=== PATIENT | female | born 1940 | race Caucasian/White ===

== ENCOUNTER 2024-01-06 08:39 | Inpatient (IN) | payer OTHER, SELFPAY ==
[2024-01-04 15:29] VITALS: BP 142/74
[2024-01-04 15:33] VITALS: BP 147/65
[2024-01-04 17:01] VITALS: BP 160/80
[2024-01-04] MEDS: DILAUDID 0.5 MG IV (17:52)
[2024-01-04] MEDS: PERCOCET 5/325 1 TABLET PO (18:29)
--- NOTE | 2024-01-04 20:13 | ED.GENMED ---
History of Present Illness
General
Chief Complaint: Fall
Source: patient and family
Exam Limitations: none
Time Seen by Provider: 01/04/24 18:00
Travel History
Have you had any contact with someone who has COVID-19?: No
Do you have any symptoms of coronavirus? Fever > 100 degrees, chills, cough, shortness of breath, sore throat, loss of taste or smell, muscle aches, or headache?: No
History of Present Illness
History of Present Illness:
83 y/o F with h/o copd, pulm fibrosis
h/o remote R TKR
knee swelling after fall today mechanical when she was using her walker and tripped
she landed onto her knee
unable to get up
no head strike
unable to weight bear
no hip pain, abdominal pain, headache, neck pain, back pain, thinners
swelling presnt to nknee
got toradol via EMS.
Past History
Past History
ED Past Medical History: Cancer (Cutaneious T cell Lymphoma), GERD, Hypercholesterolemia, Psychiatric (Depression) and Other (BOOP, Emphysema, Pulmonary nodules Rib Fratures, UTI,)
ED Past Surgical History: Appendectomy, Cholecystectomy, Gynecological (Hysterectomy), Orthopedic (Bilateral total knee replaced) and Tonsilectomy
Social History
Tobacco: Former smoker (Quit 40 years ago)
Alcohol: Occasional
Drug: None
Personal:
Living: with family
Employment: Retired
Family History
Family History: Other (son w/ brain aneurysm. sister w/ ?afib and no fam hx of throacic/abd aneursym or cad. son with fatal IA)
Review of Systems
Review of Systems
Allergies reviewed?: Yes
All Other Systems: Not applicable
Phy Exam
Physical Exam
Physical Exam:
GENERAL: Alert , in no apparent distress
HEAD: NCAT
NECK: no midline tenderness, active ROM intact, no paraspinal muscle tenderness;
EYE: pupils equal and reactive, EOMs intact.
ENT: o/p clr, mmm. no hemotympanum
CARDIAC: Regular rate and rhythm, no edema
LUNGS: diminshed no resp distress
NEUROLOGICAL: Alert and oriented, no focal neuro deficits, CN intact, 5/5 strength, sensation intact
SKIN: Warm and dry, ecchyomssi right anterior knee
MUSCULOSKELETAL: moderate swelling of the R knee
effusion
very tender and limited poainful ROM of the knee
hip does not seem tender but unable to adeuqately range due to bad knee pain
no distal leg tenderness;
PSYCH: Normal and appropriate interaction.
Course
Orders/Labs/Results
Orders:
Orders
01/04/24 15:29
Knee, Right 4 or More Views [CR Knee- Right 4 Or More View*] Urgent
Comment:
Reason For Exam: fall
01/04/24 15:34
Hip, Right 2-3 Views [CR Hip - RT w/wo Pel 2-3 Vw*] Urgent
Comment:
Reason For Exam: fall
Include a pelvis x-ray?: Yes
01/04/24 17:50
HYDROmorphone [Dilaudid] 0.5 mg IV NOW STA
01/04/24 17:51
HYDROmorphone [Dilaudid] 0.5 mg .ROUTE .STK-MED ONE
01/04/24 18:20
Oxycodone/Acetaminophen [Percocet 5/325] 1 tablet PO NOW STA
01/04/24 18:38
CT Lower Ext W/o Iv Cont Rt Urgent
Comment:
Reason For Exam: fall onto knee, unable to move/walk
01/04/24 21:35
Admit/Transfer Patient As Directed
Co-Sign Provider:
Level of Care: Observation services
Assign to:: Medical/Surgical
Physician / Group: Adrian
Diagnosis: Periprosthetic Fracture
01/04/24 21:41
Code Status As Directed
Resuscitation Status: Do not resuscitate
Reached after discussion with pt or family/Healthcare POA: Yes
DNR Bracelet Application ONCE
01/04/24 22:02
BMP [Basic Metabolic Panel] Urgent
01/04/24 22:03
CBC/No Diff [Complete Blood Count/No Diff] Urgent
01/04/24 22:42
Acetaminophen [Tylenol] 1,000 mg PO TID
HYDROmorphone [Dilaudid] 0.25 mg IV Q3HPRN PRN
Latanoprost [Xalatan Ophthalmic Solution] 1 drop BOTH EYES HS
Oxycodone [Roxicodone] 5 mg PO Q4HPRN PRN
01/04/24 22:42
ORTHOPEDIC CONSULT Routine
Consulting Provider: Loni Morrison
Was physician already notified: Yes
Activity As Directed
Activity Level: Out of Bed-Early Mobility
Bladder Scan As Directed
Follow Bladder Retention/Intermittent Cath Algorithm?: Yes
PRN if no void in __ hours: 6
Frequency: Per Retention Algorithm
If Bladder Scan Result >: 400
then:: Straight cath
Immobilizer [Braces/Immobilizers] As Directed
Type of Brace/Immobilizer: Knee immobilizer
Location for Brace/Immobilizer: right lower ext
Pneumatic Compression Sleeves As Directed
Type: Knee high
Straight Cath As Directed
Frequency: Per Retention Algorithm
Additional Instructions: straight cath as needed per acute urinary retention algorithm for 24 hrs
Additional Instructions: for bladder scan greater than 400 mL
Vital Signs As Directed
Frequency: Per unit guidelines
Weight Bearing Status As Directed
Weight bearing to: Right lower extremity
Type: Non Wt. bearing
Ot Eval And Treat Routine
Pt Eval And Treat Routine
Activity Level: Out of Bed-Early Mobility
With Assistance
DX Deep Vein Thrombosis Video Routine
01/05/24 08:00
Atorvastatin [Lipitor] 10 mg PO DAILY
Sertraline HCl [Zoloft] 100 mg PO DAILY
01/05/24 18:00
Enoxaparin Sodium [Lovenox] 40 mg SC QPM
Abnormal Lab Results
01/04/24 01/04/24
22:02 22:03
RBC 3.62 L 10^6/uL
(4.20-5.40)
Hgb 11.2 L g/dL
(12.0-16.0)
Hct 32.9 L %
(37.0-47.0)
MPV 10.8 H fL
(7.4-10.4)
Sodium 133 L mmol/L
(135-145)
Chloride 108 H mmol/L
(98-107)
BUN 19 H mg/dl
(7-17)
Calcium 8.0 L mg/dl
(8.4-10.2)
01/04/24 22:03
01/04/24 22:02
Vital Signs
Initial and Last Documented VS:
Initial Vital Signs
Temp Pulse Resp BP Pulse Ox
98.2 F 78 16 142/74 98
01/04/24 15:29 01/04/24 15:29 01/04/24 15:29 01/04/24 15:29 01/04/24 15:29
Last Documented Vital Signs
Temp Pulse Resp BP Pulse Ox
98.8 F 75 20 163/90 93
01/04/24 22:45 01/04/24 22:45 01/04/24 22:45 01/04/24 22:45 01/04/24 23:52
MDM/Problems Addressed
Differential Diagnosis Includes:
knee fracture, periprosthetic fx hardware malfucntion
MDM/Problems Addressed:
83 y/o F with mechanical fall onto knee, h/o remote replacement > 20 years ago [facility]
unaable to weight bear or flex the knee
no other injureis
xrays d/w radiologist indep reviewed
possiblilty of right lateral fem condyle fx but hardware appears intact
given degree of pain not relievd with dilaudid and oral percocet --> ct
ct showed lateral and medial fem condyle fx
d/w dr morrison from [facility] ortho, pt has been seen there fo rwrist before
he reviewed imaginges
likely Nonop
NWB, pain control, brace
pt will be admitte,d unable to control pain
*Critical Care Note
Total Time (30-74mins, 75-104mins- exclusive of procedures): Not Applicable
ED Attending Note
-
Portions of this chart may have been created with voice recognition software.� Occasional wrong word or��sound alike� substitutions may have occurred due to the inherent limitations of voice recognition software.
Discharge Plan
Departure
Patient Disposition: Admit
Date of Disposition: 01/04/24
Time of Disposition: 20:10
Admit to: Med/Surg
Presentation/result/management discussed w/ accepting MD/DO: Hospitalist
Condition: Fair
Covid-19: Not Applicable
Discharge Problem:
Closed fracture of femoral condyle
Interventions
Interventions:
*Risk Screen - Suicide Last Done: 01/04/24 15:30
*General Assessment Last Done: 01/04/24 15:30
*Neglect/Abuse Screening Last Done: 01/04/24 15:30
ED- Fall Risk Assessment Last Done: 01/04/24 15:30
*ED COVID-19 Vaccine History Last Done: 01/04/24 22:26
*Nursing Disposition Last Done: 01/04/24 22:26
ED-Musculoskeletal Assessment Last Done: 03/08/24 15:30
ED- Neurological Assessment Last Done: 01/04/24 15:30
ED-Skin Assessment Last Done: 01/04/24 15:30
Discharge Date and Time
Discharge Date/Time: 01/04/24 22:31
[2024-01-04 20:37] VITALS: BMI 32.9
--- NOTE | 2024-01-04 21:45 | HPS.HSE ---
Addendum entered and electronically signed by Malcom Campbell DO 01/04/24 22:09:
Patient seen and examined independently. Agree with findings and plan as set forth by Kaleigh Larson PA-C.
Patient is an 83y F with PMH significant for cutaneous T cell lymphoma, BOOP / ILD who presents to ED for evaluation s/p [id number]. Patient was walking with her walker when she tripped on the device and fell forward, landing on her R knee.
Patient has prior history of R TKA about 3 years ago. She denies any head injury, LOC, etc during the fall. She denies any prodrome of lightheadedness, dizziness, chest pain or dyspnea prior to the fall.
In the ED, patient is found to have R knee periprosthetic fracture.
Ass:
Right Medial and Lateral Femoral Condyle Krysta-Prosthetic Fractures
Fall at Home
s/p R TKA (3 years ago)
ILD / BOOP / COPD
Anxiety / Depression
Elevated BP
Plan:
Observe overnight for further evaluation and treatment.
Pain control, immobilization and elevation of the RLE.
NWB on the RLE.
Orthopedics evaluation.
PT / OT evaluations (patient ambulates with cane or walker at baseline).
Continue usual outpatient medications.
Monitor for improvement in BP with adequate pain control.
Original Note:
Family Physician
-
Family Physician: Tk Chang
Chief Complaint
-
Fall with Right Knee Pain
History of Present Illness
Patient is an 83 y/o female with PMH of cutaneous T cell Lymphoma, hypercholesterolemia, bronchiolitis obliterans organizing pneumonia, and interstitial lung disease who presents to ED after a fall. Patient says she was walking with her walker when
one of the walker legs caught on something caused her to fall hard onto her right knee. She denies hitting her head during the fall. Patient says she was unable to move due to severe pain. Her family was home and called an ambulance. Work-up in the
emergency department reveal right periprosthetic distal femur fracture.
Medical History
Past Medical History
Past Medical History: Reports Other
Additional Past Medical History:
Emphysema
Interstitial pulmonary fibrosis
Hyperlipidemia
Depression
Recurrent UTIs
Hx BOOP
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
Hx Basal Cell Carcinoma
Past Surgical History: Reports Other
Additional Past Surgical History:
Appendectomy
Tonsillectomy
Cholecystectomy
Hysterectomy
Bilateral total knee replacement
Mohs procedure
Social History
Tobacco: Non-smoker
Alcohol: Occasional
Drug: None
Personal:
Living: With Family
Family History
Family History: Not pertinent
Allergies / Home Medications
Allergies reflects when Allergies were last updated in [facility].
Home Medications with original date entered in [facility]
Allergy/Medication List:
Allergies
Allergy/AdvReac Type Severity Reaction Status Date / Time
morphine [Morphine] Allergy hypotension Verified 01/04/24 15:29
Home Medications
atorvastatin 10 mg tablet 10 mg PO DAILY High cholesterol 05/31/22
latanoprost 0.005 % eye drops 1 drp BOTH EYES HS 01/04/24
sertraline 100 mg tablet 100 mg PO DAILY 01/04/24
Review of Systems
-
A 12 point ROS was completed and negative except as noted: Yes
Constitutional: Denies Fever or Chills
Respiratory: Denies Cough or Trouble Breathing
Cardiac: Denies Chest Pain or Palpitations
Physical Exam
Vital Signs
Vital Signs
Temp Pulse Resp BP Pulse Ox
98.0 F 64 17 160/80 97
01/04/24 15:33 01/04/24 16:59 01/04/24 16:59 01/04/24 17:01 01/04/24 16:59
Physical Exam
General: No Apparent Distress, Comfortable and Conversant
HEENT: Anicteric and Moist mucous membranes
Respiratory: Clear and Non Labored Respirations
Cardiac: S1/S2 and Regular Rhythm
GI: Soft, Non Tender and Non Distended
Rectal: Deferred by Provider
Musculoskeletal: No Clubbing and No Cyanosis
Skin: Warm and Dry
Neuro: Awake, Alert, Oriented and Nonfocal/grossly intact
Data Reviewed
-
Lab Data: Labs Reviewed by me
Impression/Plan
-
Periprosthetic Fracture of Right Medial and Lateral Femoral Condyle
-Non-Operative management per Orthopedics
-Continue Non-Weight Bearing
-Continue Knee Immobilization
-Continue Tylenol 1000mg TID
-Continue Oxycodone/Dilaudid for moderate/severe pain
Interstitial Lung Disease/COPD
-Patient does not use any inhalers as outpatient
-Prior notes indicate patient uses oxygen as needed
Hyperlipidemia
-Continue atorvastatin
Depression
-Continue sertraline
DVT proph: Lovenox
Code Status: DNR
[2024-01-04 22:08] LABS: Hematocrit 32.9 % (37.0-47.0); Hemoglobin 11.2 g/dL (12.0-16.0); Mean Corpuscular Hgb 30.9 pg (27.0-31.0); Mean Corpuscular Volume 90.9 fL (81.0-99.0); Mean Platelet Volume 10.8 fL (7.4-10.4); Platelet Count 184 10^3/uL (130-400); Red Blood Cell Count 3.62 10^6/uL (4.20-5.40); Red Cell Dist. Width 14.5 % (11.5-14.5); White Blood Cell Count 9.5 10^3/uL (4.8-10.8)
[2024-01-04 22:22] LABS: Blood Urea Nitrogen 19 mg/dl (7-17); Carbon Dioxide 25 mmol/L (22-30); Chloride 108 mmol/L (98-107); Estimated Creatinine Clearance 66 ml/min; Glucose 99 mg/dl (70-99); Potassium 4.1 mmol/L (3.5-5.1); Sodium 133 mmol/L (135-145); eGFR > 60.00
[2024-01-04 22:45] VITALS: BP 163/90; BMI 30.3
[2024-01-04] MEDS: TYLENOL 1000 MG PO (23:09)
[2024-01-04] MEDS: XALATAN OPHTHALMIC SOLUTION 1 DROP BOTH EYES (23:30)
--- NOTE | 2024-01-04 23:30 | PTCARENOTE ---
Pt arrived to floor via stretcher from the ED. Pt AAOx3, [place]. Daughter at bedside. Pt reports right knee pain 8/10, Tylenol administered as ordered. Pt unable to tolerate Knee high seq on right leg due to pain, removed per request, remains on left
leg. Pt inc of urine, dulce maria care provided, new brief now in place. +2 edema noted to Rt LE, limited movement due to pain. Awaiting leg immobilizer from nursing heat treat supervisor. Pt positioned per comfort. Right AC int capped. Daughter updated on plan of
care. Pt now resting. Will continue to monitor.
[2024-01-05] MEDS: ROXICODONE 5 MG PO ×3 (06:33→17:15)
[2024-01-05 07:49] VITALS: BP 136/67
--- NOTE | 2024-01-05 08:38 | W.PN.UPDATE ---
Update Note
Progress Note Update
Patient seen on AM rounds. Full consult note to follow.
Periprosthetic right distal femur fracture
--Will plan to proceed with non-operative management.
--NWB to RLE. Knee immobilizer.
--Recommend ASA 325 mg for DVT prophylaxis as patient will have limited mobility while fracture is healing.
[2024-01-05] MEDS: ZOLOFT 100 MG PO (09:02)
[2024-01-05] MEDS: TYLENOL 1000 MG PO ×3 (09:02→22:04)
[2024-01-05] MEDS: LIPITOR 10 MG PO (09:03)
--- NOTE | 2024-01-05 09:21 | W.PN.HOSP.TC ---
Today's Communication/Plan
-
see bold
Assessment / Plan
Assessment / Plan
Gen: NAD, Awake and alert
Eyes: EOMI, PERRLA, no scleral icterus.
Neck: supple.
CV: RRR, +S1/S2, no m/r/g.
Resp: CTAB, no rales, wheezes, or rhonchi.
Skin: No rashes.
Neuro: CN 2-12 intact, non-focal.
Psych: Normal mood and affect.
Periprosthetic Fracture of Right Medial and Lateral Femoral Condyle
-Non-Operative management per Orthopedics
-Continue Non-Weight Bearing RLE, knee immobilizer
-Continue Tylenol 1000mg TID
-Continue Oxycodone/Dilaudid for moderate/severe pain
Interstitial Lung Disease/COPD
-Patient does not use any inhalers as outpatient
-Prior notes indicate patient uses oxygen as needed
Hyperlipidemia
-Continue atorvastatin
Depression
-Continue sertraline
Pt's daughter updated at bedside.
DNR/Lovenox
Medically cleared for d/c, case management aware.
Anticipated Discharge: Today
Subjective/Interval History
-
Date of Service: January 05, 2024
Denies CP/SOB.
Objective Data
-
Labs:
Laboratory Results
01/04/24 01/04/24
22:02 22:03
WBC 9.5
Hgb 11.2 L
Hct 32.9 L
Plt Count 184
Sodium 133 L
Potassium 4.1
Chloride 108 H
Carbon Dioxide 25
BUN 19 H
Creatinine 0.6
Glucose 99
Calcium 8.0 L
Vital Signs:
Vital Signs
Temp Pulse Resp BP Pulse Ox
97.6 F 68 17 136/67 91
01/05/24 07:49 01/05/24 07:49 01/05/24 07:49 01/05/24 07:49 01/05/24 07:49
I&O
01/04/24 01/05/24 01/06/24
06:59 06:59 07:59
Intake Total 480 / 480
Balance 480 / 480
--- NOTE | 2024-01-05 09:46 | CM ---
Addendum entered by Tahir Camarillo 01/05/24 12:45:
PT and OT evaluations noted - SNF level of care recommended. Both pt and her daughter Eva Baker are aware and following SNFs requested:
1. [facility]
2. [facility]
3. [facility]
4. [facility]
5. [facility]
6. [facility]
7. [facility]
A referral to above SNFs made. Awaiting for determination.
D/C plan: Preferred SNF. pt will need an auth for SNF level of care at a preferred SN.
CM will follow to assist pt with discharge to a preferred SNF.
Original Note:
CM following re: discharge planning.
Reviewed pt's chart, met with pt and pt's daughter at bedside.
Pt is an 83 year old female, admitted with OBS status and primary concerns of Periprosthetic Fracture of Right Medial and Lateral Femoral Condyle.
Pt reports she lives with in an apartment/condo, no steps to enter, has 4 supportive living children, 2 children . Emotional support offered and provided. Pt reports she has been experienced difficulties with walking in the past
week, usually ambulates with a walker and a cane and has balance issues. Pt reports she has had [facility] in the past. No SNF history. Pt stated she cannot walk right now at all because of pain.
According to MD pt is medically stable top be discharged. PT and OT evaluations requested to determine a level of acre at discharge.
PCP: Tk Alex
Pharmacy: [facility]
D/C plan: Awaiting for PT/OT evaluations and recommendations. Most likely home PT vs SNF
CM will follow with discharge plan updates as hospitalization progresses
[2024-01-05 10:03] VITALS: BP 130/58; PULSE 57; O2SAT 90
[2024-01-05 13:00] VITALS: BP 123/77; BP 130/66; PULSE 60; O2SAT 93
--- NOTE | 2024-01-05 13:10 | CON.ORTHO ---
Consultation
-
Date/Time Consultation Requested: 01/04/2024; time unknown
Date/Time Consultation Performed: 01/05/2024; 0800
Requesting Provider: unknown
Performing Provider: Nany Whitehead PA-C for Dr. Loni Morrison
Reason for Consultation: Right periprosthetic distal femur fracture
Consultation - Orthopedics
History
Ms. Suarez is an 83 yo F with PMH of cutaneous T cell Lymphoma, hypercholesterolemia, bronchiolitis obliterans organizing pneumonia, and interstitial lung disease. She reports she was walking at home when her walker leg got caught causing her to fall
onto her right knee. She experienced immediate onset of pain and was unable to get up off the floor. She presented to ED via EMS where x-rays and CT scan reveals a periprosthetic distal femur fracture. She is resting comfortably in bed this
morning. She reports aching pain about the right knee. She denies pain elsewhere.
She reports she lives at home with family and ambulates with the assistance of a walker at baseline. Her knee replacement was performed at [facility] 20 years ago.
Allergies / Home Medications
Allergy/AdvReac Type Severity Reaction Status Date / Time
morphine [Morphine] Allergy hypotension Verified 01/04/24 15:29
Medication Instructions Recorded
atorvastatin 10 mg tablet 10 mg PO DAILY High cholesterol 05/31/22
latanoprost 0.005 % eye drops 1 drp BOTH EYES HS 01/04/24
sertraline 100 mg tablet 100 mg PO DAILY 01/04/24
Vital Signs / Lab Results
Temp Pulse Resp BP Pulse Ox
97.6 F 68 17 136/67 91
01/05/24 07:49 01/05/24 07:49 01/05/24 07:49 01/05/24 07:49 01/05/24 07:49
01/04/24 22:03
01/04/24 22:02
XR Right Knee IMPRESSION:
Orthopedic hardware from previous total knee replacement appears intact.
Bony density adjacent to the lateral margin of the lateral femoral condyle, as described. Possibly related to previous surgical procedure. An acute fracture cannot be entirely excluded. There are no prior examinations for comparison.
Small effusion.
Right Lower Extremity CT FINDINGS/impression:
-Limited by metallic artifact, despite artifact reduction technique.
-This demonstrates fracture fragment of the lateral margin of the lateral femoral condyle, likely acute measuring approximately 2.5 x 1 cm. Mild lateral displacement of approximately 5 mm.
-There is also focal subtle cortical offset at the superior margin of the medial femoral condyle, suggesting possibility of an additional fracture (image 53 series 204).
-There is a small suprapatellar effusion, with a fat-fluid level (lipohemarthrosis).
-No apparent fracture of the proximal tibia or fibula. No apparent patellar fracture.
Physical Exam:
General: pleasant female in NAD, AAOx3
Head: atraumatic, normocephalic
Eyes: sclera anicteric
Ears: normal hearing
Heart: no edema
Lungs: normal work of breathing, no audible wheezing
Right knee: well healed surgical incision over the anterior knee. Moderate effusion about the right knee. Tenderness to palpation over the lateral femoral condyle and lateral joint line. No tenderness elsewhere in the knee. ROM deferred secondary to
known fracture. Calf soft and nontender. Patient able to wiggle toes, plantar and dorsiflex ankle. Neurovascularly intact distally.
Assessment / Plan
Right periprosthetic distal femur fracture
--Unfortunately, Ms. Suarez sustained a periprosthetic lateral femoral condyle fracture in her fall. Thankfully, this is only very mildly displaced. We will plan to proceed with non-operative management. She reports that she would like to avoid any
surgical intervention if possible. She should remain non-weight bearing to her right lower extremity. Knee immobilizer.
--Continue current pain management regimen. Ice and elevation for edema control.
--Appreciate the assistance of PT/OT while patient admitted.
--Patient should follow up outpatient early next week for repeat x-rays and to discuss treatment moving forward. Orthopedics will sign off for the time being. Please reach out with any additional orthopedic questions or concerns.
[2024-01-05 14:25] VITALS: BP 123/77; BP 130/66; PULSE 60; O2SAT 93
[2024-01-05 16:16] VITALS: BP 107/57
--- NOTE | 2024-01-05 16:58 | PTCARENOTE ---
pt's O2 86% on RA, 88% on 2l put her 4l 88%. 6l 90-91% for the time no distress/SOB. Eating a grilled cheese/ice cream. diminished at bases, long time ago ex smoker, apparently intermittently uses O2 at home, had Mohs procedure on nose (looks
reconstructed) tends to breathe thru mouth. TT to doctor to update.
[2024-01-05] MEDS: LOVENOX 40 MG SC (17:26)
[2024-01-05 21:56] VITALS: BP 119/72
[2024-01-05] MEDS: XALATAN OPHTHALMIC SOLUTION 1 DROP BOTH EYES (22:05)
[2024-01-06 07:44] VITALS: BP 129/71
--- NOTE | 2024-01-06 08:17 | W.PN.HOSP.TC ---
Today's Communication/Plan
-
see bold
Assessment / Plan
Assessment / Plan
Gen: remains NAD, Awake and alert
Eyes: remains EOMI, PERRLA, no scleral icterus.
Neck: supple.
CV: RRR, +S1/S2, no m/r/g.
Resp: faint velcro rales R base, no wheezes or rhonchi.
Skin: No rashes.
Neuro: CN 2-12 intact, non-focal.
Psych: Normal mood and affect.
Periprosthetic Fracture of Right Medial and Lateral Femoral Condyle
-Non-Operative management per Orthopedics
-Continue Non-Weight Bearing RLE, knee immobilizer
-Continue Tylenol 1000mg TID
-Continue Oxycodone/Dilaudid for moderate/severe pain
Interstitial Lung Disease/COPD
-Patient does not use any inhalers as outpatient
-Patient now with acute on chronic hypoxemic respiratory failure. She is 91% on 5L NC O2. As per pt she was supposed to be on 2L at night but it stopped using her oxygen.
-check CTA chest
-c/s pulm
Hyperlipidemia
-Continue atorvastatin
Depression
-Continue sertraline
DNR/Lovenox
Anticipated Discharge: 24 - 48 hours
Subjective/Interval History
-
Date of Service: January 06, 2024
Objective Data
-
Vital Signs:
Vital Signs
Temp Pulse Resp BP Pulse Ox
97.8 F 74 16 129/71 91
01/06/24 07:44 01/06/24 07:44 01/06/24 07:44 01/06/24 07:44 01/06/24 07:44
I&O
01/05/24 01/06/24 01/07/24
05:59 06:59 06:59
Intake Total
Balance
[2024-01-06] MEDS: LIPITOR 10 MG PO (08:39)
[2024-01-06] MEDS: ZOLOFT 100 MG PO (08:39)
[2024-01-06] MEDS: ROXICODONE 5 MG PO ×2 (08:39→17:52)
[2024-01-06] MEDS: TYLENOL 1000 MG PO ×3 (08:39→22:10)
[2024-01-06 11:40] VITALS: BP 127/95; O2SAT 90
--- NOTE | 2024-01-06 12:38 | CON.PUL ---
Consultation
Consultation Request
Date/Time Consultation Requested: 01/06/24
Date/Time Consultation Performed: 01/06/24
Performing Provider: Mitra
Reason for Consultation: Hypoxia
Medical History
-
History of Present Illness:
Patient is an 83 year old female with PMH of cutaneous T cell Lymphoma, hypercholesterolemia, bronchiolitis obliterans organizing pneumonia, and COPD/emphysema/interstitial lung disease who presents to ED after a fall. She is found to have right
periprosthetic distal femur fracture. She was evaluated by orthopedics and planning for no surgical intervention.
Of note, she was noted to be hypoxemic. She is currently on 5L NC, normally on 2 L as needed. She was last seen in our office in January 2023, had pulmonary function testing that was stable with mild obstruction and 6-minute walk testing in the past
that did not require oxygen. She reports in the past 6 months she has been intermittently using O2 when needed. She has a pulse ox at home. Typically she only uses oxygen at night when she sleeps. She does not endorse worsening shortness of
breath, cough or wheezing.
She is noted to be on palliative care at home.
Past Medical History
Past Medical History: Other (see list below)
Social History
Tobacco: Former Smoker
Alcohol: None
Drug: None
Family History
Family History: Reviewed & Not Pertinent
Allergies / Home Medications
Allergies
Allergy/AdvReac Type Severity Reaction Status Date / Time
morphine [Morphine] Allergy hypotension Verified 01/04/24 15:29
Home Medications
Medication Instructions Recorded Confirmed Last Taken Type
atorvastatin 10 mg tablet 10 mg PO DAILY High cholesterol 05/31/22 01/04/24 01/04/24 History
latanoprost 0.005 % eye drops 1 drp BOTH EYES HS 01/04/24 01/04/24 01/03/24 History
sertraline 100 mg tablet 100 mg PO DAILY 01/04/24 01/04/24 01/04/24 History
Review of Systems
-
History Source: Patient
All other systems: Negative unless noted
Vitals / Labs / Diagnostic Testing
Vital Signs
Temp Pulse Resp BP Pulse Ox
97.8 F 74 16 129/71 91
01/06/24 07:44 01/06/24 07:44 01/06/24 07:44 01/06/24 07:44 01/06/24 07:44
Lab Data
01/04/24 22:03
01/04/24 22:02
Diagnostic Testing:
Physical Exam
-
HEENT: Normocephalic, Anicteric and Moist Mucous Membranes
Cardiovascular: S1/S2 and Regular Rhythm
Respiratory: Clear and Non-Labored Respirations
GI: Soft, Non Distended and Non Tender
Neurology: Awake, Alert, Oriented, AO x 3, No Motor Deficits and Other (R LE brace with decreased ROM)
Skin: Warm, Dry and Good Color
General: Comfortable and Other (NAD)
Assessment
-
Patient is an 83 year old female with PMH of cutaneous T cell Lymphoma, hypercholesterolemia, bronchiolitis obliterans organizing pneumonia, and COPD/emphysema/interstitial lung disease who presents to ED after a fall now with right periprosthetic
distal femur fracture. She was evaluated by orthopedics and planning for no surgical intervention. Of note, she was noted to be hypoxemic 91% on 5L NC, normally on 2 L as needed/nocturnal use. We are consulted for acute on chronic hypoxemia.
Acute on chronic hypoxic respiratory failure
Acute right periprosthetic distal femur fracture status post fall
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
COPD/emphysema
Interstitial pulmonary fibrosis
Hyperlipidemia
Depression
Recurrent UTIs
Hx BOOP
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
Hx Basal Cell Carcinoma
T&A
Cholecystectomy
Hysterectomy
Bilateral total knee replacement
Mohs procedure
Plan
Hypoxemia noted on arrival, currently maintained on 5 L
Prior records indicate that she had not been requiring oxygen with exertion in the past
She notes that this is new in the past 6 months
She typically uses 2 L at night while she sleeps but not with exertion
Prior history of lung disease is noted including including COPD, emphysema, ILD, former smoker
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
Follows at [facility], last seen January [address] obtained and reviewed not indicating pulmonary embolism, there does not seem to be significant parenchymal illness that would explain her hypoxemia
CXR obtained/Other imaging reviewed
noticed that she had left upper extremity pain Sunday night that awaken her from sleep
I will initiate preliminary cardiac workup
Repeat echo
Wean supplemental oxygen as tolerated
Will need to undergo aggressive PT OT following femur fracture
Orthopedic surgery following
If there is no planned procedure, we will hold off on preoperative testing
Will need outpatient pulmonary evaluation in our office for PFTs and 6MWT
We will follow
Diagnostic Data
Chest X-Ray:
CT Scan: CHEST 01/06/24- There is no pulmonary embolism. There are mild emphysematous changes in the right upper lobe, similar to that seen on the 09/03/2021 examination
There is new hazy groundglass airspace disease at the posterior aspect right upper lobe which may be interstitial pneumonia or progression of chronic disease. Correlation with patient's white count and clinical symptoms is recommended
Echo: 11/17/11- 1.� Normal LV size with normal systolic function.� The estimated EF 55-60%.� There were no clear regional wall motion abnormalities� seen in this technically difficult but adequate study.
2.� Mild concentric LVH with possible diastolic dysfunction.
3.� Trace tricuspid regurgitation with normal right atrium and normal right ventricular size and systolic function, there was mild pulmonary hypertension with estimated PA systolic of 36 mmHg using a right atrial pressure of 10 mmHg.
4.� Since echo from 03/2008 there is no significant change other than the fact PA systolic pressure has increased slightly from 28-36 mmHg.
PFT's: 02/08/23- �Spirometry- 02-08-2023- FVC 2.10, 105% Fev1 1.43, 95% ratio 69.
PFT 01/05/22-FEV1 1.56 L-105%, FVC 2.09 L-103%, TLC 68%, RV 39%, DLCO 34%. Moderate restriction and severe reduction in diffusing capacity.
6 minute walk test 04/05/22. Room air 94%, heart rate 87 bpm. Patient and related 768 feet and maintained 93-97%, heart rate increased to 111 bpm. Dyspnea index 4 out of 10.
Reports and relevant images were personally reviewed.
Extensive review of outpatient records and discussing with family at bedside as well.
[2024-01-06 12:40] VITALS: BP 127/95; O2SAT 90
[2024-01-06 13:24] VITALS: BP 127/95; O2SAT 91
[2024-01-06 15:45] VITALS: BP 147/70
[2024-01-06 15:55] LABS: Procalcitonin 0.06 ng/ml (0.0-0.25)
[2024-01-06] MEDS: LOVENOX 40 MG SC (17:48)
[2024-01-06 18:30] LABS: NT-proBNP 534 pg/ml; Troponin I < 0.012 ng/ml
[2024-01-06] MEDS: XALATAN OPHTHALMIC SOLUTION 1 DROP BOTH EYES (22:10)
[2024-01-06] MEDS: DILAUDID 0.25 MG IV (22:10)
[2024-01-06 22:42] VITALS: BP 133/75
[2024-01-07 07:00] VITALS: BP 128/63
[2024-01-07] MEDS: TYLENOL 1000 MG PO ×3 (08:07→22:31)
[2024-01-07] MEDS: LIPITOR 10 MG PO (08:08)
[2024-01-07] MEDS: ZOLOFT 100 MG PO (08:08)
[2024-01-07] MEDS: ROXICODONE 5 MG PO ×2 (08:19→18:01)
--- NOTE | 2024-01-07 08:38 | W.PN.PUL3 ---
Today's Communication / Plan
-
Given concern for acute ILD flare, I will start systemic steroids with prednisone 40mg daily --> reduce by 10mg every other day until off.
Continue O2 and wean as tolerated to maintain SpO2>88%
PT/OT recommending skilled rehab upon discharge
Pain control
Patient will follow-up with us in the office. She used to follow with Keyla Christianson/Iwona Vivar, and Dr. Shaikh - last office visit on 02/08/2023 with Iwona Vivar. We will arrange for outpatient follow up once patient is discharged.
Assessment
-
Patient is an 83 year old female with PMH of cutaneous T cell Lymphoma, hypercholesterolemia, bronchiolitis obliterans organizing pneumonia, and COPD/emphysema/interstitial lung disease who presents to ED after a fall now with right periprosthetic
distal femur fracture. She was evaluated by orthopedics and planning for no surgical intervention. Of note, she was noted to be hypoxemic 91% on 5L NC, normally on 2 L as needed/nocturnal use. We are consulted for acute on chronic hypoxemia.
Impression:
Acute on chronic hypoxic respiratory failure likely due to hypoventilation with acute flare or her known ILD
Acute right periprosthetic distal femur fracture status post fall
Mild-moderate restrictive lung disease with TLC 68% predicted via PFT from December 2021; DLco: 34% predicted (severe gas exchange capacity defect)
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
COPD/emphysema
Interstitial pulmonary fibrosis
Former tobacco use disorder
Hyperlipidemia
Depression
Recurrent UTIs
Hx BOOP
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
Hx Basal Cell Carcinoma
T&A
Cholecystectomy
Hysterectomy
Bilateral total knee replacement
Mohs procedure
Plan
Hypoxemia noted on arrival, currently maintained on 5-6 L
Prior records indicate that she had not been requiring oxygen with exertion in the past
She notes that this is new in the past 6 months
She typically uses 2 L at night while she sleeps but not with exertion; Daughter says that the patient has been noncompliant with her nocturnal oxygen
Prior history of lung disease is noted including including COPD, emphysema, ILD, former smoker
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
Follows at [facility] last seen January [address]23
[address] obtained and reviewed not indicating pulmonary embolism, there does not seem to be significant parenchymal illness that would explain her hypoxemia, with hazy GGO in posterior RUL concerning for PNA vs ILD-flare. She does not have clinical Sx of
pneumonia. I will start prednisone 40mg daily which is roughly 0.5cckg
Other prior imaging reviewed (CT chest from 08/2021)
Repeat CT Chest without imaging in 4-6 weeks to assure RUL inflammatory changes have resolved
noticed that she had left upper extremity pain Sunday night that awaken her from sleep
Repeat echo from today shows no significant findings, with LVEF 55-60%, no regional WMA, and normal RV size/function.
Wean supplemental oxygen as tolerated to maintain SpO2>88% and <96%
Prior 6MWT from March 2022 shows he did not need O2 at that time with dereje SpO2 of 93% after walking 2 mins
Will need to undergo aggressive PT OT following femur fracture
Orthopedic surgery following
If there is no planned procedure, we will hold off on preoperative testing
Will need outpatient pulmonary evaluation in our office for PFTs and 6MWT
We will follow
This encounter requires a high level of medical decision making given her chronic exacerbation which is severe that poses a threat to her life or bodily function. I reviewed her thoracic imaging including her CTA chest from 01/06/2024, and her prior
CT chest from August 2021. I also reviewed her repeat echocardiogram which was performed today. Also, considering her chronic illness which is an acute exacerbation, my assessment requires my independent evaluation to prevent further
deterioration.
Diagnostic Data
CT Scan: CTA Chest - 01/06/24- There is no pulmonary embolism. There are mild emphysematous changes in the right upper lobe, similar to that seen on the 09/03/2021 examination
There is new hazy groundglass airspace disease at the posterior aspect right upper lobe which may be interstitial pneumonia or progression of chronic disease. Correlation with patient's white count and clinical symptoms is recommended
Echo:
01/07/2024:
Normal left ventricular size and systolic function. No regional wall motion
�abnormalities are seen. LV ejection fraction is 55-60% .
�Normal diastolic function
�No significant valvular abnormalities.
�No prior echocardiogram for comparison.
11/17/11- 1.� Normal LV size with normal systolic function.� The estimated EF 55-60%.� There were no clear regional wall motion abnormalities� seen in this technically difficult but adequate study.
2.� Mild concentric LVH with possible diastolic dysfunction.
3.� Trace tricuspid regurgitation with normal right atrium and normal right ventricular size and systolic function, there was mild pulmonary hypertension with estimated PA systolic of 36 mmHg using a right atrial pressure of 10 mmHg.
4.� Since echo from 03/2008 there is no significant change other than the fact PA systolic pressure has increased slightly from 28-36 mmHg.
PFT's: 02/08/23- �Spirometry- 02-08-2023- FVC 2.10, 105% Fev1 1.43, 95% ratio 69.
PFT 01/05/22-FEV1 1.56 L-105%, FVC 2.09 L-103%, TLC 68%, RV 39%, DLCO 34%. Moderate restriction and severe reduction in diffusing capacity.
6 minute walk test 04/05/22. Room air 94%, heart rate 87 bpm. Patient and related 768 feet and maintained 93-97%, heart rate increased to 111 bpm. Dyspnea index 4 out of 10.
Reports and relevant images were personally reviewed.
Extensive review of outpatient records and discussing with family at bedside as well.
Subjective Data
-
Date of Service:
Date of Service: January 07, 2024
Chief Complaint: Pulmonary Follow Up
Subjective:
Patient seen & evaluated today at bedside. She denies cough, fevers, chills, chest pain or recent sick contacts. She also denies having infectious symptoms prior to arrival. She does report having shortness of breath which has been ongoing since
she fell and broke her right lower extremity. She is currently on 6 L/min nasal cannula. Daughter at bedside. I answered all her and the pt's questions.
Review of Systems
General: Other (12 point ROS performed and is negative unless mentioned above.)
Objective Data
Data Reviewed
Vital Signs / I&O / Oxygen:
Vital Signs
Temp Pulse Resp BP Pulse Ox
97.4 F 69 14 128/63 93
01/07/24 07:00 01/07/24 07:00 01/07/24 07:00 01/07/24 07:00 01/07/24 08:05
Intake and Output
01/06/24 01/07/24 01/08/24
06:59 06:59 06:59
Intake Total 1680 / 1680 480 / 480
Balance 1680 / 1680 480 / 480
SaO2 93
Nasal Cannula flow liters per 6
minute
Physical Exam
General: Comfortable and Sweats (negative)
HEENT: Normocephalic and Anicteric
Cardiovascular: S1-S2, Peripheral Edema (negative) and Other (distant heart sounds)
Respiratory: Wheeze (negative), Crackles (bibasilar), Rhonchi (negative), Accessory Resp Muscle Use (negative) and Stridor (negative)
GI: Soft, Non Distended and Non Tender
Neurology: Awake and Alert
Skin: Warm and Dry
Labs/Micro/Reports
Lab Data
01/07/24 08:56
01/07/24 08:56
[2024-01-07 09:05] LABS: % Basophils 0.4 % (0-2); % Eosinophils 6.9 % (0-6); % Immature Granulocytes 0.7 % (0-0.5); % Lymphocytes 15.2 % (20.5-51.1); % Neutrophils 63.8 % (42.2-75.2); Absolute Eosinophils 0.5 10^3/uL (0-0.7); Absolute Immature Granulocytes 0.1 10^3/uL (0-0.05); Absolute Monocytes 0.9 10^3/uL (0.1-0.6); Absolute Neutrophils 4.3 10^3/uL (1.4-6.5); Hematocrit 33.8 % (37.0-47.0); Hemoglobin 11.5 g/dL (12.0-16.0); Mean Corpuscular Hgb 30.7 pg (27.0-31.0); Mean Corpuscular Volume 90.4 fL (81.0-99.0); Mean Platelet Volume 11.4 fL (7.4-10.4); Nucleated Red Blood Cells % 0 %; Platelet Count 149 10^3/uL (130-400); Red Blood Cell Count 3.74 10^6/uL (4.20-5.40); Red Cell Dist. Width 14.4 % (11.5-14.5); White Blood Cell Count 6.8 10^3/uL (4.8-10.8)
[2024-01-07 09:17] LABS: Blood Urea Nitrogen 16 mg/dl (7-17); Calcium 8.8 mg/dl (8.4-10.2); Carbon Dioxide 25 mmol/L (22-30); Chloride 106 mmol/L (98-107); Estimated Creatinine Clearance 55 ml/min; Glucose 98 mg/dl (70-99); Potassium 4.2 mmol/L (3.5-5.1); Sodium 132 mmol/L (135-145); eGFR > 60.00
[2024-01-07 09:37] LABS: Procalcitonin 0.11 ng/ml (0.0-0.25)
--- NOTE | 2024-01-07 10:59 | CM ---
Patient not in room at this time, CM met with patients daughterJenifer. Jenifer requesting additional referrals to [facility] and [facility] in [place]. Daughter asking the difference between Acute and Skilled Rehab, CM explained. CM relayed
accepting facilities at this time including [facility], [facility], and [facility]. CM discussed the facilities may change based on bed availability and when patient is ready. Per Hospitalist, patient not ready for discharge at this
time. CM will continue to follow for discharge planning needs.
Plan; SNF pending accepting facility, will require auth.
--- NOTE | 2024-01-07 12:16 | W.PN.HOSP.TC ---
Today's Communication/Plan
-
Monitor vital signs see below
Wean oxygen as tolerated
order IS
echo pending
Pulmonary following
Eventual SNF
Assessment / Plan
Assessment / Plan
Gen: remains NAD, Awake and alert
Eyes: remains EOMI, PERRLA, no scleral icterus.
Neck: supple.
CV: RRR, +S1/S2, no m/r/g.
Resp: faint velcro rales R base, no wheezes or rhonchi.
Skin: No rashes.
Neuro: CN 2-12 intact, non-focal.
Psych: Normal mood and affect.
Periprosthetic Fracture of Right Medial and Lateral Femoral Condyle
-Non-Operative management per Orthopedics
-Continue Non-Weight Bearing RLE, knee immobilizer
-Continue Tylenol 1000mg TID
-Continue Oxycodone/Dilaudid for moderate/severe pain
�Right knee was placed in knee immobilizer.� She will maintain nonweightbearing status of the right lower extremity.� She will follow-up in clinic in 2 weeks.� Over the next few weeks, we will transition her to a hinged knee brace.� Will keep her
nonweightbearing for at least 6 weeks.� Should she develop any displacement of her fractures or difficulty ambulating despite nonoperative treatment, she may require surgical intervention at that time, which may even entail a distal femoral
replacement.� She will follow-up in clinic in 2 weeks for a reevaluation
Interstitial Lung Disease/COPD
Acute on chronic hypoxic respiratory failure likely secondary to above
supposed to be on home o2 however hasnt been using
Could also have some component of atelectasis
-Patient does not use any inhalers as outpatient
-Currently on 6 L
Pulmonary following
proBNP not significantly elevated
Echo pending
Hyperlipidemia
-Continue atorvastatin
Depression
-Continue sertraline
DNR/Lovenox
Anticipated Discharge: 24 - 48 hours
Subjective/Interval History
-
Date of Service: January 07, 2024
denies nausea
Objective Data
-
Labs:
Laboratory Results
01/07/24
08:56
WBC 6.8
Hgb 11.5 L
Hct 33.8 L
Plt Count 149
Sodium 132 L
Potassium 4.2
Chloride 106
Carbon Dioxide 25
BUN 16
Creatinine 0.7
Glucose 98
Calcium 8.8
Vital Signs:
Vital Signs
Temp Pulse Resp BP Pulse Ox
97.4 F 69 14 128/63 93
01/07/24 07:00 01/07/24 07:00 01/07/24 07:00 01/07/24 07:00 01/07/24 08:05
I&O
01/06/24 01/07/24 01/08/24
06:59 06:59 06:59
Intake Total 1680 / 1680 480 / 480
Balance 1680 / 1680 480 / 480
[2024-01-07 15:00] VITALS: BP 124/60
[2024-01-07 16:10] VITALS: PULSE 72; O2SAT 94
[2024-01-07 16:14] VITALS: PULSE 72; O2SAT 93
[2024-01-07] MEDS: LOVENOX 40 MG SC (17:00)
[2024-01-07] MEDS: DELTASONE 40 MG PO (17:00)
[2024-01-07 18:27] VITALS: BP 132/61
[2024-01-07 23:22] VITALS: BP 128/70
[2024-01-07] MEDS: XALATAN OPHTHALMIC SOLUTION BOTH EYES (23:31)
[2024-01-08] MEDS: ROXICODONE 5 MG PO ×3 (00:33→20:20)
[2024-01-08 06:03] LABS: % Basophils 0.2 % (0-2); % Immature Granulocytes 1.1 % (0-0.5); % Lymphocytes 7.8 % (20.5-51.1); % Monocytes 4.6 % (1.7-9.3); % Neutrophils 86.3 % (42.2-75.2); Absolute Immature Granulocytes 0.1 10^3/uL (0-0.05); Absolute Lymphocytes 0.4 10^3/uL (1.2-3.4); Absolute Monocytes 0.3 10^3/uL (0.1-0.6); Absolute Neutrophils 4.9 10^3/uL (1.4-6.5); Hematocrit 33.6 % (37.0-47.0); Hemoglobin 11.1 g/dL (12.0-16.0); Mean Corpuscular Hgb 30.1 pg (27.0-31.0); Mean Corpuscular Volume 91.1 fL (81.0-99.0); Mean Platelet Volume 11.5 fL (7.4-10.4); Nucleated Red Blood Cells % 0 %; Platelet Count 168 10^3/uL (130-400); Red Blood Cell Count 3.69 10^6/uL (4.20-5.40); Red Cell Dist. Width 14.4 % (11.5-14.5); White Blood Cell Count 5.6 10^3/uL (4.8-10.8)
[2024-01-08 06:28] LABS: Blood Urea Nitrogen 21 mg/dl (7-17); Calcium 9.6 mg/dl (8.4-10.2); Carbon Dioxide 28 mmol/L (22-30); Chloride 104 mmol/L (98-107); Estimated Creatinine Clearance 55 ml/min; Glucose 142 mg/dl (70-99); Potassium 5.4 mmol/L (3.5-5.1); Sodium 136 mmol/L (135-145); eGFR > 60.00
[2024-01-08 07:12] VITALS: BP 147/67
[2024-01-08] MEDS: TYLENOL 1000 MG PO ×3 (08:04→21:31)
[2024-01-08] MEDS: LIPITOR 10 MG PO (08:04)
[2024-01-08] MEDS: ZOLOFT 100 MG PO (08:04)
[2024-01-08] MEDS: DELTASONE 40 MG PO (08:04)
--- NOTE | 2024-01-08 08:30 | W.PN.PUL3 ---
Today's Communication / Plan
-
Given concern for acute ILD flare, I started systemic steroids with prednisone 40mg daily on 01/06--> reduce by 10mg every other day until off.
Continue O2 and wean as tolerated to maintain SpO2>88%
PT/OT recommending skilled rehab upon discharge
Pain control
Patient will follow-up with us in the office. She used to follow with Keyla Christianson/Iwona Vivar, and Dr. Shaikh - last office visit on 02/08/2023 with Iwona Vivar. We will arrange for outpatient follow up once patient is discharged.
Assessment
-
Patient is an 83 year old female with PMH of cutaneous T cell Lymphoma, hypercholesterolemia, bronchiolitis obliterans organizing pneumonia, and COPD/emphysema/interstitial lung disease who presents to ED after a fall now with right periprosthetic
distal femur fracture. She was evaluated by orthopedics and planning for no surgical intervention. Of note, she was noted to be hypoxemic 91% on 5L NC, normally on 2 L as needed/nocturnal use. We are consulted for acute on chronic hypoxemia.
Impression:
Acute on chronic hypoxic respiratory failure likely due to hypoventilation with acute flare or her known ILD
Acute right periprosthetic distal femur fracture status post fall
Mild-moderate restrictive lung disease with TLC 68% predicted via PFT from December 2021; DLco: 34% predicted (severe gas exchange capacity defect)
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
COPD/emphysema
Interstitial pulmonary fibrosis
Former tobacco use disorder
Hyperlipidemia
Depression
Recurrent UTIs
Hx BOOP
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
Hx Basal Cell Carcinoma
T&A
Cholecystectomy
Hysterectomy
Bilateral total knee replacement
Mohs procedure
Plan
Hypoxemia noted on arrival, currently maintained on 3L/min, improved from 5-6 L
Prior records indicate that she had not been requiring oxygen with exertion in the past
She notes that this is new in the past 6 months
She typically uses 2 L at night while she sleeps but not with exertion; Daughter says that the patient has been noncompliant with her nocturnal oxygen
Prior history of lung disease is noted including including COPD, emphysema, ILD, former smoker
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
Follows at [facility], last seen January [address] obtained and reviewed not indicating pulmonary embolism, there does not seem to be significant parenchymal illness that would explain her hypoxemia, with hazy GGO in posterior RUL concerning for PNA vs ILD-flare. She does not have clinical Sx of
pneumonia. I started prednisone taper starting at 40mg daily on 01/06 which is roughly 0.5cc/kg
Other prior imaging reviewed (CT chest from 08/2021)
Repeat CT Chest without imaging in 4-6 weeks to assure RUL inflammatory changes have resolved
noticed that she had left upper extremity pain Sunday night that awaken her from sleep
Repeat echo from today shows no significant findings, with LVEF 55-60%, no regional WMA, and normal RV size/function.
Wean supplemental oxygen as tolerated to maintain SpO2>88% and <96%
Prior 6MWT from March 2022 shows he did not need O2 at that time with dereje SpO2 of 93% after walking 2 mins
Will need to undergo aggressive PT OT following femur fracture
Orthopedic surgery following
Will need outpatient pulmonary evaluation in our office for PFTs and 6MWT
We will follow
This encounter requires a moderate level of medical decision making given her chronic exacerbation. I reviewed her thoracic imaging including her CTA chest from 01/06/2024, and her prior CT chest from August 2021. I also reviewed her repeat
echocardiogram which was performed today. Also, considering her chronic illness which is an acute exacerbation, my assessment requires my independent evaluation to prevent further deterioration.
Diagnostic Data
CT Scan: CTA Chest - 01/06/24- There is no pulmonary embolism. There are mild emphysematous changes in the right upper lobe, similar to that seen on the 09/03/2021 examination
There is new hazy groundglass airspace disease at the posterior aspect right upper lobe which may be interstitial pneumonia or progression of chronic disease. Correlation with patient's white count and clinical symptoms is recommended
Echo:
01/07/2024:
Normal left ventricular size and systolic function. No regional wall motion
�abnormalities are seen. LV ejection fraction is 55-60% .
�Normal diastolic function
�No significant valvular abnormalities.
�No prior echocardiogram for comparison.
11/17/11- 1.� Normal LV size with normal systolic function.� The estimated EF 55-60%.� There were no clear regional wall motion abnormalities� seen in this technically difficult but adequate study.
2.� Mild concentric LVH with possible diastolic dysfunction.
3.� Trace tricuspid regurgitation with normal right atrium and normal right ventricular size and systolic function, there was mild pulmonary hypertension with estimated PA systolic of 36 mmHg using a right atrial pressure of 10 mmHg.
4.� Since echo from 03/2008 there is no significant change other than the fact PA systolic pressure has increased slightly from 28-36 mmHg.
PFT's: 02/08/23- �Spirometry- 02-08-2023- FVC 2.10, 105% Fev1 1.43, 95% ratio 69.
PFT 01/05/22-FEV1 1.56 L-105%, FVC 2.09 L-103%, TLC 68%, RV 39%, DLCO 34%. Moderate restriction and severe reduction in diffusing capacity.
6 minute walk test 04/05/22. Room air 94%, heart rate 87 bpm. Patient and related 768 feet and maintained 93-97%, heart rate increased to 111 bpm. Dyspnea index 4 out of 10.
Reports and relevant images were personally reviewed.
Extensive review of outpatient records and discussing with family at bedside as well.
Subjective Data
-
Date of Service:
Date of Service: January 08, 2024
Chief Complaint: Pulmonary Follow Up
Subjective:
Patient seen today. Still short of breath with exertion but is improved with degree of SOB. Currently on 3 L/min. Denies chest pain, headache, fevers or chills.
Review of Systems
General: Other (Negative unless mentioned above)
Objective Data
Data Reviewed
Vital Signs / I&O / Oxygen:
Vital Signs
Temp Pulse Resp BP Pulse Ox
98.1 F 59 16 147/67 97
01/08/24 07:12 01/08/24 07:12 01/08/24 07:12 01/08/24 07:12 01/08/24 09:18
Intake and Output
01/07/24 01/08/24 01/09/24
06:59 06:59 06:59
Intake Total 1680 / 1680 1200 / 1200
Balance 1680 / 1680 1200 / 1200
SaO2 97
Nasal Cannula flow liters per 4
minute
Physical Exam
General: Comfortable and Sweats (negative)
HEENT: Normocephalic and Anicteric
Cardiovascular: S1-S2 and Peripheral Edema (negative)
Respiratory: Wheeze (negative), Crackles (negative), Rhonchi (negative), Accessory Resp Muscle Use (negative), Stridor (negative) and Other (Reduced breath sounds bilaterally)
GI: Soft, Non Distended and Non Tender
Neurology: Awake and Alert
Skin: Warm and Dry
Labs/Micro/Reports
Lab Data
01/08/24 05:21
01/08/24 05:21
[2024-01-08] MEDS: MIRALAX 17 GRAMS PO (10:41)
--- NOTE | 2024-01-08 11:12 | W.PN.HOSP.TC ---
Today's Communication/Plan
-
monitor vitals
see plan
laxatives
prednisone
hopeful dc to SNF in next 24hrs
wean o2 as tolerated
Assessment / Plan
Assessment / Plan
Gen: remains NAD, Awake and alert
Eyes: remains EOMI, PERRLA, no scleral icterus.
Neck: supple.
CV: RRR, +S1/S2, no m/r/g.
Resp: faint velcro rales R base, no wheezes or rhonchi.
Skin: No rashes.
Neuro: CN 2-12 intact, non-focal.
Psych: Normal mood and affect.
Periprosthetic Fracture of Right Medial and Lateral Femoral Condyle
-Non-Operative management per Orthopedics
-Continue Non-Weight Bearing RLE, knee immobilizer
-Continue Tylenol 1000mg TID
-Continue Oxycodone/Dilaudid for moderate/severe pain
�Right knee was placed in knee immobilizer.� She will maintain nonweightbearing status of the right lower extremity.� She will follow-up in clinic in 2 weeks.� Over the next few weeks, we will transition her to a hinged knee brace.� Will keep her
nonweightbearing for at least 6 weeks.� Should she develop any displacement of her fractures or difficulty ambulating despite nonoperative treatment, she may require surgical intervention at that time, which may even entail a distal femoral
replacement.� She will follow-up in clinic in 2 weeks for a reevaluation
Interstitial Lung Disease/COPD; suspect acute exacerbation of interstitial lung disease
Acute on chronic hypoxic respiratory failure likely secondary to above
supposed to be on home o2 however hasnt been using
Could also have some component of atelectasis
-Patient does not use any inhalers as outpatient
-Now on 3 L, continue with prednisone
Pulmonary following
proBNP not significantly elevated
Echo with preserved ejection fraction
Mild hyperkalemia
Likely secondary to constipation
laxatives
Hyperlipidemia
-Continue atorvastatin
Depression
-Continue sertraline
DNR/Lovenox
PT/OT rec SNF
Anticipated Discharge: Within 24 hours
Subjective/Interval History
-
Date of Service: January 08, 2024
denies pain
Objective Data
-
Labs:
Laboratory Results
01/08/24
05:21
WBC 5.6
Hgb 11.1 L
Hct 33.6 L
Plt Count 168
Sodium 136
Potassium 5.4 H D
Chloride 104
Carbon Dioxide 28
BUN 21 H
Creatinine 0.7
Glucose 142 H
Calcium 9.6
Vital Signs:
Vital Signs
Temp Pulse Resp BP Pulse Ox
98.1 F 59 16 147/67 97
01/08/24 07:12 01/08/24 07:12 01/08/24 07:12 01/08/24 07:12 01/08/24 09:18
I&O
01/07/24 01/08/24 01/09/24
06:59 06:59 06:59
Intake Total 1680 / 1680 1200 / 1200
Balance 1680 / 1680 1200 / 1200
--- NOTE | 2024-01-08 12:01 | PN.CDI ---
CDI
- -
CDI:
Physician Documentation Request
Admit Date: 01/06/24 08:39
Dear Doctor Toni,
Please review the following and provide your response in the progress notes.
Clinical Indicators:
Pt admitted with Periprosthetic Fracture of Right Medial and Lateral Femoral Condyle/ILD exacerbation /Acute on chronic Hypoxic Respiratory Failure
Sodium levels are as below
01/04/24 01/07/24
22:02 08:56
Sodium 133 L 132 L
Based on the above, could you clarify in the progress notes, the appropriate diagnosis, if significant, that supports the above abnormalities and additional evaluation, monitoring and/or treatment rendered:
Hyponatremia
Abnormal lab value of clinical insignificance
Other
Use of terms such as suspected, likely, concern for, or probable (associated with a specific diagnosis that is being evaluated, monitored, or treated as if it exists) are acceptable and can be coded in the inpatient setting, when documented at the
time of discharge.
Thank you,
Obdulia Sousa RN
CDI Specialist
[employer]
Please use your independent medical judgment in providing your response.
[2024-01-08 14:44] VITALS: BP 131/73; PULSE 73; O2SAT 98
[2024-01-08 15:06] VITALS: BP 131/73
--- NOTE | 2024-01-08 15:30 | CM ---
Reviewed the chart notes and spoke with the patient's daughter at the bedside. Reviewed with the daughter facilities that were offering a bed and ones that have pending bed availability. Daughter requests additional referrals be sent to [facility]ci[facility] Tapia. CM continues to be available to patient/family and is monitoring medical plan for needs at discharge.
Plan: Discharge to SNF once bed found and precert obtained.
[2024-01-08] MEDS: LOVENOX 40 MG SC (17:40)
[2024-01-08] MEDS: COLACE 100 MG PO (20:16)
[2024-01-08] MEDS: XALATAN OPHTHALMIC SOLUTION 1 DROP BOTH EYES (21:31)
[2024-01-08 23:09] VITALS: BP 137/76
[2024-01-09 05:07] LABS: % Basophils 0.4 % (0-2); % Eosinophils 0.5 % (0-6); % Immature Granulocytes 0.8 % (0-0.5); % Lymphocytes 21.4 % (20.5-51.1); % Monocytes 9.9 % (1.7-9.3); Absolute Immature Granulocytes 0.1 10^3/uL (0-0.05); Absolute Lymphocytes 1.7 10^3/uL (1.2-3.4); Absolute Monocytes 0.8 10^3/uL (0.1-0.6); Absolute Neutrophils 5.3 10^3/uL (1.4-6.5); Hematocrit 31.4 % (37.0-47.0); Hemoglobin 10.4 g/dL (12.0-16.0); Mean Corp Hgb Conc. 33.1 g/dL (33.0-37.0); Mean Corpuscular Hgb 30.8 pg (27.0-31.0); Mean Corpuscular Volume 92.9 fL (81.0-99.0); Mean Platelet Volume 11.4 fL (7.4-10.4); Nucleated Red Blood Cells % 0 %; Platelet Count 181 10^3/uL (130-400); Red Blood Cell Count 3.38 10^6/uL (4.20-5.40); Red Cell Dist. Width 14.6 % (11.5-14.5); White Blood Cell Count 7.8 10^3/uL (4.8-10.8)
[2024-01-09 05:43] LABS: Blood Urea Nitrogen 30 mg/dl (7-17); Calcium 9.4 mg/dl (8.4-10.2); Carbon Dioxide 28 mmol/L (22-30); Chloride 102 mmol/L (98-107); Estimated Creatinine Clearance 55 ml/min; Glucose 103 mg/dl (70-99); Potassium 4.7 mmol/L (3.5-5.1); Sodium 136 mmol/L (135-145); eGFR > 60.00
[2024-01-09 07:35] VITALS: BP 137/81
--- NOTE | 2024-01-09 08:30 | W.PN.PUL3 ---
Today's Communication / Plan
-
Given concern for acute ILD flare, I started systemic steroids with prednisone 40mg daily on 01/06--> reduce by 10mg every other day until off. She seems to be less SOB since steroids were started
Continue O2 and wean as tolerated to maintain SpO2>88% --> I recommend walking O2 assessment while at the rehab prior to discharge, otherwise we can do 6MWT at our office.
PT/OT recommending skilled rehab upon discharge --> Pulmonary service will follow along while she remains inpatient
Pain control
Patient will follow-up with us in the office. She used to follow with Keyla Christianson/Iwnoa Vivar, and Dr. Shaikh - last office visit on 02/08/2023 with Iwona Vivar. We will arrange for outpatient follow up once patient is discharged.
Assessment
-
Patient is an 83 year old female with PMH of cutaneous T cell Lymphoma, hypercholesterolemia, bronchiolitis obliterans organizing pneumonia, and COPD/emphysema/interstitial lung disease who presents to ED after a fall now with right periprosthetic
distal femur fracture. She was evaluated by orthopedics and planning for no surgical intervention. Of note, she was noted to be hypoxemic 91% on 5L NC, normally on 2 L as needed/nocturnal use. We are consulted for acute on chronic hypoxemia.
Impression:
Acute on chronic hypoxic respiratory failure likely due to hypoventilation with acute flare or her known ILD
Acute right periprosthetic distal femur fracture status post fall
Mild-moderate restrictive lung disease with TLC 68% predicted via PFT from December 2021; DLco: 34% predicted (severe gas exchange capacity defect)
Conditions present [employer]:
COPD/emphysema
Interstitial pulmonary fibrosis
Former tobacco use disorder
Hyperlipidemia
Depression
Recurrent UTIs
Hx BOOP
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
Hx Basal Cell Carcinoma
T&A
Cholecystectomy
Hysterectomy
Bilateral total knee replacement
Mohs procedure
Plan
Hypoxemia noted on arrival, currently maintained on 3L/min, improved from 5-6 L
Prior records indicate that she had not been requiring oxygen with exertion in the past
She notes that this is new in the past 6 months
She typically uses 2 L at night while she sleeps but not with exertion; Daughter says that the patient has been noncompliant with her nocturnal oxygen
Prior history of lung disease is noted including including COPD, emphysema, ILD, former smoker
She has been treated for BOOP/GLAZIER METAL FURNITURE in the past
Follows at [facility], last seen January [address]23
CT obtained and reviewed not indicating pulmonary embolism, there does not seem to be significant parenchymal illness that would explain her hypoxemia, with hazy GGO in posterior RUL concerning for PNA vs ILD-flare. She does not have clinical Sx of
pneumonia. I started prednisone taper starting at 40mg daily on 01/06 which is roughly 0.5cc/kg
Other prior imaging reviewed (CT chest from 08/2021)
Repeat CT Chest without imaging in 4-6 weeks to assure RUL inflammatory changes have resolved
noticed that she had left upper extremity pain Sunday night that awaken her from sleep
Repeat echo from 01/06 shows no significant findings, with LVEF 55-60%, no regional WMA, and normal RV size/function.
Wean supplemental oxygen as tolerated to maintain SpO2>88% and <96%
Prior 6MWT from March 2022 shows he did not need O2 at that time with dereje SpO2 of 93% after walking 2 mins
Will need to undergo aggressive PT OT following femur fracture --> she is awaiting DC to rehab
Orthopedic surgery following
Will need outpatient pulmonary evaluation in our office for PFTs and 6MWT
Patient is awaiting discharge to rehab. Pulmonary service will continue to follow along while she remains inpatient.
This encounter requires a moderate level of medical decision making given her chronic exacerbation. I reviewed her thoracic imaging including her CTA chest from 01/06/2024, and her prior CT chest from August 2021. I also reviewed her repeat
echocardiogram which was performed today. Also, considering her chronic illness which is an acute exacerbation, my assessment requires my independent evaluation to prevent further deterioration.
Diagnostic Data
CT Scan: CTA Chest - 01/06/24- There is no pulmonary embolism. There are mild emphysematous changes in the right upper lobe, similar to that seen on the 09/03/2021 examination
There is new hazy groundglass airspace disease at the posterior aspect right upper lobe which may be interstitial pneumonia or progression of chronic disease. Correlation with patient's white count and clinical symptoms is recommended
Echo:
01/07/2024:
Normal left ventricular size and systolic function. No regional wall motion
�abnormalities are seen. LV ejection fraction is 55-60% .
�Normal diastolic function
�No significant valvular abnormalities.
�No prior echocardiogram for comparison.
11/17/11- 1.� Normal LV size with normal systolic function.� The estimated EF 55-60%.� There were no clear regional wall motion abnormalities� seen in this technically difficult but adequate study.
2.� Mild concentric LVH with possible diastolic dysfunction.
3.� Trace tricuspid regurgitation with normal right atrium and normal right ventricular size and systolic function, there was mild pulmonary hypertension with estimated PA systolic of 36 mmHg using a right atrial pressure of 10 mmHg.
4.� Since echo from 03/2008 there is no significant change other than the fact PA systolic pressure has increased slightly from 28-36 mmHg.
PFT's: 02/08/23- �Spirometry- 02-08-2023- FVC 2.10, 105% Fev1 1.43, 95% ratio 69.
PFT 01/05/22-FEV1 1.56 L-105%, FVC 2.09 L-103%, TLC 68%, RV 39%, DLCO 34%. Moderate restriction and severe reduction in diffusing capacity.
6 minute walk test 04/05/22. Room air 94%, heart rate 87 bpm. Patient and related 768 feet and maintained 93-97%, heart rate increased to 111 bpm. Dyspnea index 4 out of 10.
Reports and relevant images were personally reviewed.
Extensive review of outpatient records and discussing with family at bedside as well.
Subjective Data
-
Date of Service:
Date of Service: January 09, 2024
Chief Complaint: Pulmonary Follow Up
Subjective:
Patient seen and evaluated today at bedside. She is sitting in chair in NAD. Daughter at bedside. I answered all of their questions. Shortness of breath is better today. She is currently on 3 L/min nasal cannula. Awaiting discharge to rehab
today
Review of Systems
General: Other (Negative unless mentioned above)
Objective Data
Data Reviewed
Vital Signs / I&O / Oxygen:
Vital Signs
Temp Pulse Resp BP Pulse Ox
97.4 F 71 16 137/81 98
01/09/24 07:35 01/09/24 07:35 01/09/24 07:35 01/09/24 07:35 01/09/24 10:58
Intake and Output
01/08/24 01/09/24 01/10/24
06:59 06:59 06:59
Intake Total 1200 / 1200 780 / 780
Balance 1200 / 1200 780 / 780
SaO2 98
Nasal Cannula flow liters per 3
minute
Physical Exam
General: Comfortable and Sweats (negative)
HEENT: Normocephalic and Anicteric
Cardiovascular: S1-S2 and Peripheral Edema (negative)
Respiratory: Wheeze (negative), Crackles (bibasilar), Rhonchi (negative), Accessory Resp Muscle Use (negative) and Stridor (negative)
GI: Soft, Non Distended and Non Tender
Neurology: Awake, Alert and Tremors (negative)
Skin: Warm and Dry
Labs/Micro/Reports
Lab Data
01/09/24 04:15
01/09/24 04:15
Microbiology
01/07/24 09:35 Nose MRSA Screen - Final
Staph aureus MRSA
[2024-01-09] MEDS: MIRALAX 17 GRAMS PO (08:36)
[2024-01-09] MEDS: COLACE 100 MG PO (08:38)
[2024-01-09] MEDS: TYLENOL 1000 MG PO ×2 (08:38→17:06)
[2024-01-09] MEDS: ZOLOFT 100 MG PO (08:38)
[2024-01-09] MEDS: DELTASONE 30 MG PO (08:38)
[2024-01-09] MEDS: LIPITOR 10 MG PO (08:38)
--- NOTE | 2024-01-09 11:25 | CM ---
Addendum entered by Nena Acuña RN 01/09/24 14:42:
Reviewed the chart notes and spoke with the patient and her daughter at the bedside. Family selected [facility].
Plan: Discharge to [facility] today via ambulance.
Skill level approved CASE #[id number]; 6 days; NRD 01/14/24 fax clinicals to: [phone]
Ambulance auth CASE# [id number].
Medical necessity and form on chart.
Original Note:
IMM signed and placed on the chart.
[2024-01-09 11:34] VITALS: BP 136/75; PULSE 64; O2SAT 99
--- NOTE | 2024-01-09 11:41 | W.PN.HOSP.TC ---
Addendum entered and electronically signed by Donaldo Muñoz MD 01/10/24 11:08:
Hyponatremia
resolved
Addendum entered and electronically signed by Donaldo Muñoz MD 01/09/24 15:01:
Orthopedics recommended full dose aspirin for DVT prophylaxis.
Addendum entered and electronically signed by Donaldo Muñoz MD 01/09/24 14:44:
time of discharge 38 minutes
Original Note:
Today's Communication/Plan
-
monitor vitals
see plan
wean o2 as tolerate
cw prednisone
dispo planning; needs SNF
Assessment / Plan
Assessment / Plan
Gen: remains NAD, Awake and alert
Eyes: remains EOMI, PERRLA, no scleral icterus.
Neck: supple.
CV: RRR, +S1/S2, no m/r/g.
Resp: faint velcro rales R base, no wheezes or rhonchi.
Skin: No rashes.
Neuro: CN 2-12 intact, non-focal.
Psych: Normal mood and affect.
Periprosthetic Fracture of Right Medial and Lateral Femoral Condyle
-Non-Operative management per Orthopedics
-Continue Non-Weight Bearing RLE, knee immobilizer
-Continue Tylenol 1000mg TID
-Continue Oxycodone/Dilaudid for moderate/severe pain
�Right knee was placed in knee immobilizer.� She will maintain nonweightbearing status of the right lower extremity.� She will follow-up in clinic in 2 weeks.� Over the next few weeks, we will transition her to a hinged knee brace.� Will keep her
nonweightbearing for at least 6 weeks.� Should she develop any displacement of her fractures or difficulty ambulating despite nonoperative treatment, she may require surgical intervention at that time, which may even entail a distal femoral
replacement.� She will follow-up in clinic in 2 weeks for a reevaluation
Interstitial Lung Disease/COPD; suspect acute exacerbation of interstitial lung disease
Acute on chronic hypoxic respiratory failure likely secondary to above
supposed to be on home o2 however hasnt been using
Could also have some component of atelectasis
-Patient does not use any inhalers as outpatient
-Now on 3 L, continue with prednisone with taper
Pulmonary following
proBNP not significantly elevated
Echo with preserved ejection fraction
Mild hyperkalemia
Likely secondary to constipation
laxatives
improved
Hyperlipidemia
-Continue atorvastatin
Depression
-Continue sertraline
DNR/Lovenox
PT/OT rec SNF
Anticipated Discharge: Within 24 hours
Subjective/Interval History
-
Date of Service: January 09, 2024
denies pain
Objective Data
-
Labs:
Laboratory Results
01/09/24
04:15
WBC 7.8
Hgb 10.4 L
Hct 31.4 L
Plt Count 181
Sodium 136
Potassium 4.7
Chloride 102
Carbon Dioxide 28
BUN 30 H
Creatinine 0.7
Glucose 103 H
Calcium 9.4
Vital Signs:
Vital Signs
Temp Pulse Resp BP Pulse Ox
97.4 F 71 16 137/81 98
01/09/24 07:35 01/09/24 07:35 01/09/24 07:35 01/09/24 07:35 01/09/24 10:58
I&O
01/08/24 01/09/24 01/10/24
06:59 06:59 06:59
Intake Total 1200 / 1200 780 / 780
Balance 1200 / 1200 780 / 780
[2024-01-09 11:50] VITALS: BP 136/75; PULSE 65; O2SAT 98
--- NOTE | 2024-01-09 14:27 | W.DCSUMMARY ---
Discharge Summary
Discharge Data
Date of Admission: 01/06/24
Date of Discharge: 01/09/24
-
Pending Results: No
Hospital Course
83-year-old female with past medical history of COPD, hypertension, hyperlipidemia, depression came to the hospital with periprosthetic fracture of the right medial and lateral femoral condyle. Patient was seen by orthopedics and was decided on
nonoperative management. Patient got a right knee immobilizer and was instructed for not weightbearing status on right lower extremity. Orthopedics instructed patient to follow-up with them closely outpatient. While patient was here in the
hospital she also had acute exacerbation of interstitial lung disease. She required oxygenation on this hospitalization. Patient was seen by pulmonary and was started on steroids. Over time patient symptoms improved with prednisone. Patient was
also evaluated by physical therapy who recommended SNF. Once her symptoms improved she was then discharged to SNF with instructions to follow-up closely with all her physicians outpatient.
Discharge Plan
-
Patient Disposition: Custodial/SNF
Discharge Diagnosis/Procedures: Periprosthetic Fracture of Right Medial and Lateral Femoral Condyle
Acute interstitial lung disease exacerbation
Acute on chronic hypoxic respiratory failure
Diet: As tolerated
Activity: Do not bear weight R leg and Other activity
Driving Restrictions: Not until seen by your Dr
Other Services: PT and OT
Activity Restrictions/Additional Instructions:
NOTE FROM ORTHOPEDICS: Right knee was placed in knee immobilizer.� She will maintain nonweightbearing status of the right lower extremity.� She will follow-up in clinic in 2 weeks.� Over the next few weeks, we will transition her to a hinged knee
brace.� Will keep her nonweightbearing for at least 6 weeks.� Should she develop any displacement of her fractures or difficulty ambulating despite nonoperative treatment, she may require surgical intervention at that time, which may even entail a
distal femoral replacement.� She will follow-up in clinic in 2 weeks for a reevaluation
Prednisone is currently at 30 mg, decrease by 10 every 2 days until off
Referrals:
Loni Morrison, DO [Active] - in one to two weeks
Tk Chang MD [Family Provider] - in less than 1 week
Rafael Shaikh MD [Active] - in four to six weeks
Prescriptions:
New
docusate sodium 100 mg Capsule
100 mg PO BID Qty: 0 0RF
prednisone 10 mg Tablet
30 mg PO DAILY Qty: 0 0RF
polyethylene glycol 3350 [HealthyLax] 17 gram Powder In Packet
17 g PO DAILY Qty: 0 0RF
acetaminophen [Tylenol Extra Strength] 500 mg Tablet
1,000 mg PO TID Qty: 0 0RF
oxycodone 5 mg Tablet
5 mg PO Q4HPRN PRN (Reason: moderate to severe pain) Qty: 10 0RF
aspirin 325 mg capsule
325 mg PO DAILY Qty: 20 0RF
Rx Instructions:
For DVT prophylaxis per orthopedics
Continued
atorvastatin 10 mg Tablet
10 mg PO DAILY
latanoprost 0.005 % Drops
1 drp BOTH EYES HS
sertraline 100 mg Tablet
100 mg PO DAILY
Discharge Orders:
Discharge Patient (As Directed); Ordered 01/09/24
Ordered By: Donaldo Muñoz
Discharge Date and Time
Discharge Date/Time: 01/09/24 19:08
[2024-01-09 15:55] VITALS: BP 139/69
--- NOTE | 2024-01-09 17:01 | PTCARENOTE ---
Report given to at [facility] at this time 1700. . 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
[2024-01-09] MEDS: LOVENOX 40 MG SC (17:06)
== END 2024-01-09 19:08 | DRG 196 ==
LOC: 2 NORTH 08:39
PROVIDERS: Internal Medicine; Physician Assistant Medical; ADMITTING PHYSICIAN Hospitalist; ATTENDING PHYSICIAN Internal Medicine; CONSULT PHYSICIAN Internal Medicine; CONSULT PHYSICIAN Orthopaedic Surgery; EMERGENCY PHYSICIAN Emergency Medicine; FAMILY PHYSICIAN Internal Medicine
DX: J84.10 Pulmonary fibrosis, unspecified (principal); J96.21 Acute and chronic respiratory failure with hypoxia; M97.11XA Periprosthetic fracture around internal prosthetic right knee joint, initial encounter; N39.0 Urinary tract infection, site not specified; S72.421A Displaced fracture of lateral condyle of right femur, initial encounter for closed fracture; S72.431A Displaced fracture of medial condyle of right femur, initial encounter for closed fracture; C85.90 Non-Hodgkin lymphoma, unspecified, unspecified site; E87.1 Hypo-osmolality and hyponatremia; J43.9 Emphysema, unspecified; W01.0XXA Fall on same level from slipping, tripping and stumbling without subsequent striking against object, initial encounter; Y93.9 Activity, unspecified; Y92.9 Unspecified place or not applicable; M25.461 Effusion, right knee; E78.00 Pure hypercholesterolemia, unspecified; F32.A Depression, unspecified; F41.9 Anxiety disorder, unspecified; E87.5 Hyperkalemia; K59.00 Constipation, unspecified; J84.89 Other specified interstitial pulmonary diseases; K21.9 Gastro-esophageal reflux disease without esophagitis; Z66 Do not resuscitate; Z88.5 Allergy status to narcotic agent; Z87.891 Personal history of nicotine dependence; Z87.440 Personal history of urinary (tract) infections; Z99.81 Dependence on supplemental oxygen; Z91.199 Patient's noncompliance with other medical treatment and regimen due to unspecified reason; Z92.3 Personal history of irradiation; Z92.21 Personal history of antineoplastic chemotherapy; Z85.828 Personal history of other malignant neoplasm of skin
CPT/HCPCS: 71275; 73502; 73564; 73700; 80048; 83880; 84145; 84484; 85025; 85027; 87070; 87147; 93306; 96374; 97163; 97167; 97530; 97535; 99285; Q9967

== ENCOUNTER 2024-01-15 08:09 | Inpatient (IN) | payer OTHER, SELFPAY ==
[2024-01-12] VITALS (9 sets, daily range): BP systolic 124–194; BP diastolic 65–109; BMI 31.0
[2024-01-12 16:09] LABS: % Basophils 0.1 % (0-2); % Immature Granulocytes 1.2 % (0-0.5); % Monocytes 5.1 % (1.7-9.3); % Neutrophils 86.6 % (42.2-75.2); Absolute Immature Granulocytes 0.1 10^3/uL (0-0.05); Absolute Lymphocytes 0.7 10^3/uL (1.2-3.4); Absolute Monocytes 0.5 10^3/uL (0.1-0.6); Absolute Neutrophils 8.8 10^3/uL (1.4-6.5); Hematocrit 34.8 % (37.0-47.0); Hemoglobin 11.6 g/dL (12.0-16.0); Mean Corp Hgb Conc. 33.3 g/dL (33.0-37.0); Mean Corpuscular Hgb 30.4 pg (27.0-31.0); Mean Corpuscular Volume 91.3 fL (81.0-99.0); Mean Platelet Volume 10.5 fL (7.4-10.4); Nucleated Red Blood Cells % 0 %; Platelet Count 242 10^3/uL (130-400); Red Blood Cell Count 3.81 10^6/uL (4.20-5.40); Red Cell Dist. Width 14.8 % (11.5-14.5); White Blood Cell Count 10.2 10^3/uL (4.8-10.8)
--- NOTE | 2024-01-12 17:21 | ED.GENMED ---
History of Present Illness
General
Chief Complaint: Numbness
Source: patient
Exam Limitations: none
Time Seen by Provider: 01/12/24 16:39
Travel History
Have you had any contact with someone who has COVID-19?: No
Do you have any symptoms of coronavirus? Fever > 100 degrees, chills, cough, shortness of breath, sore throat, loss of taste or smell, muscle aches, or headache?: No
History of Present Illness
History of Present Illness:
83-year-old female who presents with RUE weakness. pt states that she awoke with this this am. Patient admits that she only notes RUE weakness but states that her RLE is in an immobilizer due to RLE fracture. the pt is non-weight bearing. no cp. no
sob. Patient states she went to bed around 10 PM last night feeling okay. She states she did not feel right around 5 AM with her arm. She did not notify the nurse but is not sure what time. She states the nurse did not get back to her right away.
Past History
Past History
ED Past Medical History: Cancer (Cutaneious T cell Lymphoma), GERD, Hypercholesterolemia, Psychiatric (Depression) and Other (BOOP, Emphysema, Pulmonary nodules Rib Fratures, UTI,)
ED Past Surgical History: Appendectomy, Cholecystectomy, Gynecological (Hysterectomy), Orthopedic (Bilateral total knee replaced) and Tonsilectomy
Social History
Tobacco: Former smoker (Quit 40 years ago)
Alcohol: Occasional
Drug: None
Personal:
Living: with family
Employment: Retired
Family History
Family History: Other (son w/ brain aneurysm. sister w/ ?afib and no fam hx of throacic/abd aneursym or cad. son with fatal [place])
Phy Exam
Physical Exam
Physical Exam:
CONSTITUTIONAL Patient alert and oriented to person, place and time. Well-appearing. Vital signs reviewed.
HEAD atraumatic, normocephalic.
EYES eyelids normal to inspection, Pupils equally round and reactive to light, Extraocular muscles intact, Conjunctiva normal, Sclera normal.
NECK normal range of motion, Trachea midline, no jugular venous distention.
RESPIRATORY CHEST No respiratory distress noted, Chest expansion equal, Bilateral breath sounds clear.
CARDIOVASCULAR regular rate and rhythm, Heart sounds normal.
BACK normal inspection, no obvious deformities
UPPER EXTREMITY no cyanosis, no edema. Weakness noted to the right upper extremity. The patient is able to Lift against gravity but has drift.
LOWER EXTREMITY no cyanosis, no edema. Difficult to assess strength and range of motion testing due to the fact that the patient has an immobilizer with an acute fracture. She is able to plantar
NEURO speech is clear. Right upper extremity is weak as noted above. Unable to assess right lower extremity due to fracture and immobilization
SKIN skin warm, dry, and normal in color.
Course
Orders/Labs/Results
Orders:
Orders
01/12/24 16:01
Complete Blood Count/With Diff Urgent
01/12/24 16:50
CT Head W/o Iv Contrast Urgent
Comment:
Reason For Exam: RUE weakness
01/12/24 16:56
Basic Metabolic Panel Urgent
01/12/24 17:27
Electrocardiogram (*1) Urgent
Reason for Study: TIA/Stroke
EKG- Treatment ONCE
01/12/24 18:34
Lorazepam [Ativan] 0.5 mg IV NOW STA
Abnormal Lab Results
01/12/24 01/12/24
16:01 16:56
RBC 3.81 L 10^6/uL
(4.20-5.40)
Hgb 11.6 L g/dL
(12.0-16.0)
Hct 34.8 L %
(37.0-47.0)
RDW 14.8 H %
(11.5-14.5)
MPV 10.5 H fL
(7.4-10.4)
Abs Immat Gran (auto) 0.1 H 10^3/uL
(0-0.05)
Absolute Neuts (auto) 8.8 H 10^3/uL
(1.4-6.5)
Absolute Lymphs (auto) 0.7 L 10^3/uL
(1.2-3.4)
Immature Gran % 1.2 H %
(0-0.5)
Neutrophils % 86.6 H %
(42.2-75.2)
Lymphocytes % 7.0 L %
(20.5-51.1)
Sodium 133 L mmol/L
(135-145)
BUN 30 H mg/dl
(7-17)
Glucose 127 H mg/dl
(70-99)
01/12/24 16:01
01/12/24 16:56
Vital Signs
Initial and Last Documented VS:
Initial Vital Signs
Temp Pulse Resp BP Pulse Ox
98.4 F 79 20 144/68 95
01/12/24 15:25 01/12/24 15:25 01/12/24 15:25 01/12/24 15:25 01/12/24 15:25
Last Documented Vital Signs
Temp Pulse Resp BP Pulse Ox
98.4 F 80 19 131/100 96
01/12/24 15:25 01/12/24 18:00 01/12/24 18:00 01/12/24 18:00 01/12/24 18:00
MDM/Problems Addressed
Differential Diagnosis Includes:
Nerve palsy, CVA, electrolyte balance
MDM/Problems Addressed:
RUE weakness
*Radiology
Radiology exam reviewed: preliminary read by ED provider (no obvious ICH) and radiology read reviewed
*Pulse Oximetry
Patient hypoxic: no
*EKG
Interpreted by ED Provider?: Yes
Interpretation: normal
Rate: normal
Rhythm: sinus
[place]: normal axis
QRS Pattern: normal QRS
Ischemia: no ischemia
*Chess Instructor Interpretation
Rate: normal
Interpretation: normal
Rhythm: sinus
*Critical Care Note
Total Time (30-74mins, 75-104mins- exclusive of procedures): Not Applicable
Data Reviewed
Review of Other/Old Records Reveals: Discharge Summary (from 01/09/24)
Source: patient
Prescriptions/Medications Considered But Not Given:
Consider tPA patient with awoke with symptoms.
Patient Management
Discussion with other providers: Hospitalist and Cylinder Press Operator (Case discussed with neurology)
Escalation/DeEscalation of care consider admission/obs:
83-year-old female presents with right upper extremity weakness. Is weak on exam. Unfortunately her right lower extremity exam is limited due to immobilization related to her fracture. No cranial nerve deficits. Could consider whether this is a
peripheral neuropathy related to sleeping but patient states she was sleeping somewhat upright. Given her risks and findings, concern for CVA. Case discussed with neurology. CT negative. Admit
ED Attending Note
-
Portions of this chart may have been created with voice recognition software.� Occasional wrong word or��sound alike� substitutions may have occurred due to the inherent limitations of voice recognition software.
Discharge Plan
Departure
Patient Disposition: Admit
Date of Disposition: 01/12/24
Time of Disposition: 18:30
Admit to: Telemetry
Presentation/result/management discussed w/ accepting MD/DO: Hospitalist
Discharge Problem:
Arm weakness
Prescriptions:
No Action
atorvastatin 10 mg Tablet
10 mg PO DAILY
latanoprost 0.005 % Drops
1 drp BOTH EYES HS
sertraline 100 mg Tablet
100 mg PO DAILY
docusate sodium 100 mg Capsule
100 mg PO BID Qty: 0 0RF
prednisone 10 mg Tablet
30 mg PO DAILY Qty: 0 0RF
polyethylene glycol 3350 [HealthyLax] 17 gram Powder In Packet
17 g PO DAILY Qty: 0 0RF
acetaminophen [Tylenol Extra Strength] 500 mg Tablet
1,000 mg PO TID Qty: 0 0RF
oxycodone 5 mg Tablet
5 mg PO Q4HPRN PRN (Reason: moderate to severe pain) Qty: 10 0RF
aspirin 325 mg capsule
325 mg PO DAILY Qty: 20 0RF
Rx Instructions:
For DVT prophylaxis per orthopedics
Referrals:
Arnold Lopes MD [Family Provider] -
Interventions
Interventions:
*Risk Screen - Suicide Last Done: 01/12/24 15:24
*General Assessment Last Done: 01/12/24 15:24
*Neglect/Abuse Screening Last Done: 01/12/24 15:24
*ED COVID-19 Vaccine History Last Done: 01/12/24 15:27
ED- Neurological Assessment Last Done: 01/12/24 17:00
[2024-01-12 18:03] LABS: Blood Urea Nitrogen 30 mg/dl (7-17); Carbon Dioxide 24 mmol/L (22-30); Chloride 105 mmol/L (98-107); Glucose 127 mg/dl (70-99); Sodium 133 mmol/L (135-145); eGFR > 60.00
[2024-01-12] MEDS: ATIVAN 0.5 MG IV (18:48)
--- NOTE | 2024-01-12 19:00 | EDRN ---
Report received, introduced myself to patient, patient is complaining of being anxious and jittery, patient had just gotten Ativan from previous shift, informed her we need to see if that kicks in.
--- NOTE | 2024-01-12 19:03 | HPS.HSE ---
Addendum entered and electronically signed by Harry Bryant MD 01/13/24 13:27:
Brain MRI
There are a few adjacent foci of restricted diffusion in the posterolateral left basal ganglia likely involving the posterior putamen, measuring up to 1.0 cm, in keeping with acute/subacute infarcts. No associated hemorrhage. There is associated
hyperintense FLAIR signal suggesting these are not hyperacute.
Addendum entered and electronically signed by Harry Bryant MD 01/12/24 20:25:
Revised Code status: DNR confirmed by patient to SURGEON PARTNER
Ordered changed to DNR
Original Note:
Family Physician
-
Family Physician: Arnold Lopes MD
Chief Complaint
-
Rt UEx weakness
History of Present Illness
83F Lt hand dominant, HX HLD, Cutaneous T-cell Lymphoma BIB for evaluation of acute RU weakness noted when she woke early AM, Denied prolonged compresion. She slept upright.
Reports clumsiness of Rt hand. No other focal neuro symtoms.
Recent HX Periprosthetic Fracture of Right Medial and Lateral Femoral Condyle in knee immobilizer thus limited eval for weakness.
Medical History
Past Medical History
Past Medical History: Reports Other
Additional Past Medical History:
Emphysema
Interstitial pulmonary fibrosis
Hyperlipidemia
Depression
Recurrent UTIs
Hx BOOP
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
Hx Basal Cell Carcinoma
Past Surgical History: Reports Other
Additional Past Surgical History:
Appendectomy
Tonsillectomy
Cholecystectomy
Hysterectomy
Bilateral total knee replacement
Mohs procedure
Social History
Tobacco: Non-smoker
Alcohol: Occasional
Drug: None
Personal:
Living: With Family
Family History
Family History: Not pertinent
Allergies / Home Medications
Allergies reflects when Allergies were last updated in [employer].
Home Medications with original date entered in [employer]
Allergy/Medication List:
Allergies
Allergy/AdvReac Type Severity Reaction Status Date / Time
morphine [Morphine] Allergy hypotension Verified 01/12/24 15:24
Home Medications
atorvastatin 10 mg tablet 10 mg PO DAILY High cholesterol 05/31/22
latanoprost 0.005 % eye drops 1 drp BOTH EYES HS Eye Condition 01/04/24
sertraline 100 mg tablet 100 mg PO DAILY depression 01/04/24
acetaminophen 500 mg tablet (Tylenol Extra Strength) 1,000 mg PO TID #0 tabs 01/09/24
aspirin 325 mg capsule 325 mg PO DAILY #20 caps 01/09/24
docusate sodium 100 mg capsule 100 mg PO BID #0 caps 01/09/24
oxycodone 5 mg tablet 5 mg PO Q4HPRN PRN moderate to severe pain #10 tabs 01/09/24
polyethylene glycol 3350 17 gram oral powder packet (HealthyLax) 17 g PO DAILY #0 ea 01/09/24
prednisone 10 mg tablet 30 mg PO DAILY #0 tabs 01/09/24
Review of Systems
-
Constitutional: Reports No Symptoms
EENT: Reports No Symptoms
Respiratory: Reports No Symptoms
Cardiac: Reports No Symptoms
Abdomen/GI: Reports No Symptoms
: Reports No Symptoms
Musculoskeletal: Reports No Symptoms
Skin: Reports No Symptoms
Neurological: Reports Weakness (Rt UEx weakness )
Endocrine: Reports No Symptoms
Hematologic/Lymphatic: Reports No Symptoms
Psych: Reports No Symptoms
Physical Exam
Vital Signs
Vital Signs
Temp Pulse Resp BP Pulse Ox
98.4 F 80 19 131/100 96
01/12/24 15:25 01/12/24 18:00 01/12/24 18:00 01/12/24 18:00 01/12/24 18:00
Physical Exam
General: No Apparent Distress, Comfortable and Conversant; No Pain
HEENT: NormoCephalic and Moist mucous membranes
Respiratory: Clear
Cardiac: S1/S2 and Regular Rhythm
Breast: Deferred by me
GI: Soft, Non Tender, Non Distended and Normal Bowel Sounds
Rectal: Deferred by Provider
Musculoskeletal: No Clubbing, No Cyanosis and Other (Rt Carlo in knee immobilizer ); No No Edema
Skin: Warm
Neuro: AO x 3 and Other (Rt UEx weakness )
Psych: Calm
Laboratory Results
-
01/12/24 16:01
01/12/24 16:56
Laboratory Results
Total Bilirubin Cancelled 01/12/24 16:56
AST Cancelled 01/12/24 16:56
ALT Cancelled 01/12/24 16:56
Alkaline Phosphatase Cancelled 01/12/24 16:56
Data Reviewed
-
CT Scan: Report Reviewed by me
Medical Tests (Nuc Med, Echo, EKG etc): Report Reviewed by me
Lab Data: Labs Reviewed by me
Old Records: Reviewed
Impression/Plan
-
Reviewed VS: unremarkable HR 80 BP 130/100
Data
WCC 10.2
Hgb 11.6 - baseline 10s to 11s
Na 133
BUN 30
nl Cr eGFR > 60
BG 127
EKG report
SINUS RHYTHM WITH OCCASIONAL PREMATURE VENTRICULAR COMPLEXES
OTHERWISE NORMAL ECG
HCT
No acute intracranial abnormality noted
01/07/24 ECHO
LVEF 55-60
Nl diastolic function
No significant valvular abnormality
Last hospitalist admission: 01/06/24 - 01/09/24
DC Dx; Periprosthetic Fracture of Right Medial and Lateral Femoral Condyle
ASSESSMENT & PLAN
Acute onset of Rt UEx weakness - woke up with it & NIH 2
Not TNK candidate
- Eval to r/o CVA/TIA vs Plexopathy vs Peripheral Neuropathy
- de escalade ASA 325 mg to baby ASA 81 mg daily
- add Plavix 75 mg daily
- Brain MRI
- Unremarkable recent ECHO as of 01/07/24
- cont on REVENUE ACCOUNTANT Statin
- Neuro consulted by ER attd
Interstitial Lung Disease/COPD HX
-Patient does not use any inhalers as outpatient
-Prior notes indicate patient uses oxygen as needed
Hyperlipidemia
-Continue atorvastatin
Depression
-Continue sertraline
Recent Periprosthetic Fracture of Right Medial and Lateral Femoral Condyle (01/06/24)
- Non operative approach
- in knee immobilize
- maintain NWB status of the right lower extremity for 6 weeks
- OP follow-up in clinic in 2 weeks- to transition her to a hinged knee brace.
DVT Px: SCD
Code:
Obs TLM
--- NOTE | 2024-01-12 19:50 | EDRN ---
In to do swallow screen and medicate patient who is complaining still of being jittery, also noted she had a DNR bracelet on however chart states Full code, harman texted hospitalist covering telemetry to inform her of both the jittery and code
status, hospitalist in at bedside to go over this.
[2024-01-12] MEDS: PLAVIX 75 MG PO (19:56)
[2024-01-12] MEDS: ATIVAN 0.5 MG PO (21:32)
--- NOTE | 2024-01-12 22:09 | PTCARENOTE ---
Patient received in bed from ED @ 2044. Pt AAOx3, pulled over from stretcher to bed. NIH & Neuro check completed. Pt offers no complaints at this time. Oriented to room and call wills.
[2024-01-13] VITALS (7 sets, daily range): BP systolic 119–173; BP diastolic 72–90; PULSE 68–69; O2SAT 97
--- NOTE | 2024-01-13 06:56 | W.PN.HOSP.TC ---
Today's Communication/Plan
-
Needs PT/OT, auth
DAPT
Stroke on MRI
Assessment / Plan
Assessment / Plan
Physical Exam
General: Not in acute distress
HEENT: Normocephalic and Moist mucous membranes
Respiratory: Clear to auscultation bilaterally
Cardiac: S1/S2 and Regular Rhythm
GI: Soft, Non Tender, Non Distended and Normal Bowel Sounds
Musculoskeletal: No Clubbing, No Cyanosis and Other (Rt Carlo in knee immobilizer ); No No Edema
Skin: Warm
Neuro: AAOx3. Cranial Nerves 2 to 12 grossly intact. 5/5 strength in left upper extremity; 4/5 in right upper extremity.
Psych: Calm

MRI Brain, MRA Head and Neck (as per radiology report):
'IMPRESSION:
There are a few adjacent small nonhemorrhagic acute/subacute left basal ganglia infarcts as described.
No focal hemodynamically significant stenosis, aneurysm or occlusion.'

Assessment/Plan
RUE weakness with possible RLE weakness (but the RLE weakness is unclear given recent history of fracture about 8 days prior to arrival)
Not TNK candidate
- Right lower extremity exam is limited due to immobilization related to her fracture
- Eval to r/o CVA/TIA vs Plexopathy vs Peripheral Neuropathy
- Status post Aspirin 325 mg
- Continue Aspirin 81 mg daily
- Continue Plavix 75 mg daily
- DAPT x 21 days, then ASA 81mg daily indefinitely (first day of Aspirin 81 mg is January 14, 2024)
- Brain MRI results as above
- Unremarkable recent ECHO as of 01/07/24
- Continue on DEBT COLLECTOR Statin 10 mg HS
- Neurology consulted, recommendations appreciated
- PT/OT
Interstitial Lung Disease/COPD History
-Patient does not use any inhalers as outpatient
-Prior notes indicate patient uses oxygen as needed
Hyperlipidemia
-Continue atorvastatin
Depression
-Continue sertraline
Recent Periprosthetic Fracture of Right Medial and Lateral Femoral Condyle (01/06/24)
- Non operative approach
- in knee immobilizer at this time
- maintain NWB status of the right lower extremity for 6 weeks
- OP follow-up in clinic in 2 weeks- to transition her to a hinged knee brace.
DVT Px: SCD
Code: DNR
Anticipated Discharge: Within 24 hours
Subjective/Interval History
-
Date of Service: January 13, 2024
Patient was seen and examined. She reported that her right upper extremity weakness felt like it improved.
Objective Data
-
Labs:
Laboratory Results
01/13/24
06:03
WBC Pending
Hgb Pending
Hct Pending
Plt Count Pending
Sodium Pending
Potassium Pending
Chloride Pending
Carbon Dioxide Pending
BUN Pending
Creatinine Pending
Glucose Pending
Calcium Pending
Vital Signs:
Vital Signs
Temp Pulse Resp BP Pulse Ox
98.1 F 76 18 150/81 95
01/13/24 03:10 01/13/24 03:10 01/13/24 03:10 01/13/24 03:10 01/13/24 03:10
I&O
01/11/24 01/12/24 01/13/24
06:59 06:59 06:59
Intake Total 480 / 480
Balance 480 / 480
[2024-01-13 07:09] LABS: % Basophils 0.5 % (0-2); % Eosinophils 1.7 % (0-6); % Immature Granulocytes 2.4 % (0-0.5); % Lymphocytes 23.6 % (20.5-51.1); % Monocytes 9.2 % (1.7-9.3); % Neutrophils 62.6 % (42.2-75.2); Absolute Basophils 0.1 10^3/uL (0-0.2); Absolute Eosinophils 0.2 10^3/uL (0-0.7); Absolute Immature Granulocytes 0.2 10^3/uL (0-0.05); Absolute Lymphocytes 2.3 10^3/uL (1.2-3.4); Absolute Monocytes 0.9 10^3/uL (0.1-0.6); Absolute Neutrophils 6.1 10^3/uL (1.4-6.5); Hematocrit 35.3 % (37.0-47.0); Hemoglobin 11.8 g/dL (12.0-16.0); Mean Corp Hgb Conc. 33.4 g/dL (33.0-37.0); Mean Corpuscular Hgb 30.3 pg (27.0-31.0); Mean Corpuscular Volume 90.5 fL (81.0-99.0); Mean Platelet Volume 10.8 fL (7.4-10.4); Nucleated Red Blood Cells % 0 %; Platelet Count 249 10^3/uL (130-400); Red Cell Dist. Width 14.9 % (11.5-14.5); White Blood Cell Count 9.8 10^3/uL (4.8-10.8)
[2024-01-13 07:31] LABS: Blood Urea Nitrogen 22 mg/dl (7-17); Calcium 9.1 mg/dl (8.4-10.2); Carbon Dioxide 28 mmol/L (22-30); Chloride 106 mmol/L (98-107); Estimated Creatinine Clearance 55 ml/min; Glucose 74 mg/dl (70-99); HDL Cholesterol 58 mg/dl; LDL Cholesterol, Calculated 51 mg/dl; Potassium 4.1 mmol/L (3.5-5.1); Sodium 137 mmol/L (135-145); Total Cholesterol 136 mg/dl (50-199); Triglyceride 137 mg/dl (10-149); Very Low Density Lipoprotein 27 mg/dl (0-30); eGFR > 60.00
[2024-01-13] MEDS: DELTASONE 30 MG PO (09:25)
[2024-01-13] MEDS: TYLENOL 650 MG PO (09:25)
[2024-01-13] MEDS: ZOLOFT 100 MG PO (09:25)
[2024-01-13] MEDS: PLAVIX 75 MG PO (09:25)
[2024-01-13] MEDS: ASPIRIN 325 MG PO (09:26)
[2024-01-13] MEDS: LIPITOR 10 MG PO (09:26)
--- NOTE | 2024-01-13 09:33 | PTOTSP ---
ST Evaluation
Oropharyngeal function appears intact at the bedside
Pt received awake/alert at the bedside. HOB raised upright for PO trials of regular solids and thin liquids. Self presentations of regular solids. Demo grossly functional mastication and bolus was orally cleared. Thin liquids by straw sip swallow
appears prompt. No overt s/sx of aspiration observed
Recommend
1. Continue Regular Solids / Thin liquids
2. Standard aspiration precautions
3. Meds oral with sips of water
4. No further acute AUTHORIZATION NURSE needs. AUTHORIZATION NURSE signing off please reconsult as needed.
--- NOTE | 2024-01-13 09:53 | CM ---
Reviewed the chart notes and spoke with the patient at the bedside. The patient is being admitted under observational status. The YANG letter was provided and explained. The patient had no questions with regards to the letter.
The patient was recently discharged from (01/05-01/08) to [facility]. The patient prior to hospitalizations resided with her spouse in an independent apartment with no steps to enter. The patient has a cane and a rolling walker. The patient has had
VN in the past. The patient confirmed her pharmacy of choice is the [facility]. The patient's discharge plans will depend on the patient's progress. CM continues to be available to patient/family and is monitoring medical plan for needs
at discharge.
Plan: Discharge plans will depend on the patient's progress.
[2024-01-13 10:38] LABS: Glycohemoglobin (HgbA1c) 5.8 % (4.0-5.6)
--- NOTE | 2024-01-13 11:35 | CON.NEURO4 ---
Consultation - Neurology 4
-
CONSULTING PHYSICIAN: Jairo
REFERRING PHYSICIAN: ED
DICTATED BY: Jairo
DATE/TIME OF REQUEST: 01/12/24 in the evening
DATE/TIME OF CONSULTATION: 01/13/24
Reason for Consultation: weakness
History of Present Illness:
83-year-old female who presented to the ED yesterday after waking up early yesterday morning around 5am with right upper extremity weakness. She also had some clumsiness in her right hand. Unclear to what extent she had associated right lower
extremity weakness as she is currently wearing a knee immobilizer and recently had a right femur fracture. No other focal neurological deficits. She had not been on any antiplatelet given the recent fracture. Last known normal was 10 PM Sunday
night. She arrived to the ED out of the window for TNK and CTA was not pursued given relatively low stroke scale. Symptoms have improved somewhat since admission.
Past Medical History:
Emphysema
Interstitial pulmonary fibrosis
Hyperlipidemia
Depression
Recurrent UTIs
Hx BOOP
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
Hx Basal Cell Carcinoma
Past Surgical History:
Appendectomy
Tonsillectomy
Cholecystectomy
Hysterectomy
Bilateral total knee replacement
Mohs procedure
Social History
Tobacco: Non-smoker
Alcohol: Occasional
Drug: None
Personal:
Living: With Family
Family History
No clear family history of stroke
Allergies
morphine [Morphine] Allergy (Verified 01/12/24 15:24)
hypotension
Home Medications
Medication Instructions Recorded
atorvastatin 10 mg tablet 10 mg PO DAILY High cholesterol 05/31/22
latanoprost 0.005 % eye drops 1 drp BOTH EYES HS Eye Condition 01/04/24
sertraline 100 mg tablet 100 mg PO DAILY depression 01/04/24
acetaminophen 500 mg tablet 1,000 mg PO DAILYPRN PRN mild pain 01/12/24
(Tylenol Extra Strength)
docusate sodium 100 mg capsule 100 mg PO BID PRN constipation 01/12/24
estradiol 0.01% (0.1 mg/gram) 1 g vaginal DAILY Postmenopausal 01/12/24
vaginal cream atrophic vaginitis
Review of Symptoms:
Patient denies any fever, headache, chest pain, shortness of breath, GI or symptoms.
�Per the HPI.�All systems are reviewed negative except above.
Vital Signs
Temp Pulse Resp BP Pulse Ox
97.3 F 72 12 171/86 96
01/13/24 07:30 01/13/24 07:30 01/13/24 07:30 01/13/24 07:30 01/13/24 07:30
Lab Results
01/13/24 06:03
01/13/24 06:03
Sodium 137 mmol/L (135-145) 01/13/24 06:03
Potassium 4.1 mmol/L (3.5-5.1) 01/13/24 06:03
BUN 22 mg/dl (7-17) H 01/13/24 06:03
Glucose 74 mg/dl (70-99) 01/13/24 06:03
Calcium 9.1 mg/dl (8.4-10.2) 01/13/24 06:03
LDL Cholesterol, Calc 51 mg/dl 01/13/24 06:03
Physical Exam:
The patient is afebrile, heart sounds S1 and S2 are regular, and chest is clear to auscultation bilaterally.
NIH Stroke Scale:
I performed the NIH stroke scale on the patient on 01/13/24 at 1300. The patient scored 1 point on the NIH stroke scale assessment, which were assigned as follows: 1 for RUE drift
Neurologic Examination:
The patient is awake, alert and oriented x 3. She is able to follow commands and answer questions appropriately. There is no aphasia or dysarthria. On cranial nerve assessment, pupils are 3 mm bilateral, round and reactive to light and
accommodation. Visual pulido are full. Extraocular movements are intact. Facial sensations are intact and bilaterally symmetrical, there is no facial asymmetry. Hearing is intact bilaterally to normal conversation volume. Tongue palate and uvula
are midline. Sternocleidomastoid strengths are full bilaterally. 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 There is no drift or involuntary
movement noted. Deep tendon reflexes are 2+ bilateral upper and lower extremities and Babinski is absent bilaterally. Sensations of touch, temperature and are intact and bilaterally symmetrical. There was no extinction noted on double simultaneous
stimulation. Coordination is intact by finger to nose bilaterally.
Neuro Imaging:
MRI brain, MRA head/neck:
'There are a few adjacent small nonhemorrhagic acute/subacute left basal ganglia infarcts.
No focal hemodynamically significant stenosis, aneurysm or occlusion.'
Impression:
SOLOMON HENSLEY is a 83 year old F who has presented to the hospital with RUE weakness with possible RLE weakness (latter unclear given hx of fracture). MRI brain confirms a few small acute/subacute L BG infarcts as cause for symptoms.
Patient has the following risk factors for their symptoms: age, HLD, cancer
IV Tenecteplase/IAT candidacy: out of the window for TNK; NIHSS not elevated enough for IAT (would need to be > or equal to 10), no clot seen on MRAs
Plan:
-BP goal is normotension.
-Needs DAPT x 21 days, then ASA 81mg daily indefinitely
- Hemoglobin A1C is 5.8. Goal is normoglycemia.
- Already on atorvastatin 10mg qhs. LDL at goal already at 51. Goal LDL after stroke is <70.
-Echo recently done--01/07/24, no CSE
-PT/OT/ST evaluations
- DVT prophylaxis
-continue neurochecks
-reviewed s/s of stroke and importance of calling 911 s/p d/c if this recurs
-needs f/u in our clinic in 4 weeks
Neurology is signing off. Please call with any further questions.
Discussed patient care with: patient and her daughter, ED
--- NOTE | 2024-01-13 16:49 | CON.CAR ---
Consultation
Consultation Request
Date/Time Consultation Requested: 01/13/24
Date/Time Consultation Performed: 01/13/24
Requesting Provider: Yulia
Performing Provider: Og
Reason for Consultation: SVT evaluted for AFib
Medical History
-
Chief Complaint: RUE weakness
History of Present Illness:
83-year-old woman past medical history of cutaneous T-cell lymphoma and pulmonary fibrosis on as needed home O2 who had a recent mechanical fall resulting in tib-fib fracture of the right lower extremity. [facility]
While there she developed right upper extremity weakness and was brought to [facility] emergency department for evaluation. She underwent MRI of the brain which revealed small nonhemorrhagic acute/subacute left basal ganglia infarcts. We were
asked to evaluate telemetry for possible atrial fibrillation.
Patient tells me that she has no significant cardiovascular history. She has been asymptomatic from a cardiac standpoint, no chest discomfort, palpitations, shortness of breath. In discussing SVT seen on the monitor she was asymptomatic with this.
Of note tells me that she was here earlier this month with tibial fracture after fall. We discussed the events leading up to this and she feels strongly that this was a mechanical fall and had no loss of consciousness.
Past Medical History:
Emphysema
Interstitial pulmonary fibrosis
Hyperlipidemia
Depression
Recurrent UTIs
Hx BOOP
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
Hx Basal Cell Carcinoma
Past Surgical History:
Appendectomy
Tonsillectomy
Cholecystectomy
Hysterectomy
Bilateral total knee replacement
Mohs procedure
Past Medical History
Past Medical History: Other (as above)
Past Surgical History: Other (as above)
Social History
Tobacco: Non-Smoker
Family History
Family History: Reviewed & Not Pertinent
Allergies / Home Medications
Allergy/AdvReac Type Severity Reaction Status Date / Time
morphine [Morphine] Allergy hypotension Verified 03/16/24 15:24
Medication Instructions Recorded Confirmed Type
atorvastatin 10 mg tablet 10 mg PO DAILY High cholesterol 05/31/22 01/12/24 History
latanoprost 0.005 % eye drops 1 drp BOTH EYES HS Eye Condition 01/04/24 01/12/24 History
sertraline 100 mg tablet 100 mg PO DAILY depression 01/04/24 01/12/24 History
acetaminophen 500 mg tablet 1,000 mg PO DAILYPRN PRN mild pain 01/12/24 01/12/24 History
(Tylenol Extra Strength)
docusate sodium 100 mg capsule 100 mg PO BID PRN constipation 01/12/24 01/12/24 History
estradiol 0.01% (0.1 mg/gram) 1 g vaginal DAILY Postmenopausal 01/12/24 01/12/24 History
vaginal cream atrophic vaginitis
Review of Systems
-
History Source: Patient
All other systems: Negative unless noted
Physical Exam
Vital Signs
Temp Pulse Resp BP Pulse Ox
97.5 F 89 16 119/87 96
01/13/24 15:01 01/13/24 15:01 01/13/24 15:01 01/13/24 15:01 01/13/24 15:01
Lab Results
01/13/24 06:03
01/13/24 06:03
Physical Exam
General: Well Developed
HEENT: Normocephalic
Respiratory: Clear
Cardiac: S1/S2
Breast: Deferred by me
GI: Soft
Musculoskeletal: No Edema
Skin: Warm and Dry
Neuro: AO x 3
Psych: Calm
Impression / Plan
-
Promotional Model: Kenny - JEFFRY
Assessment:
RUE weakness
Basal ganglia stroke
SVT
Emphysema
Interstitial pulmonary fibrosis
Hyperlipidemia
Depression
Recurrent UTIs
Hx BOOP
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
Hx Basal Cell Carcinoma
Plan:
Patient presented with right upper extremity weakness concerning for CVA
MRI of the brain revealed acute/subacute basal ganglia stroke
We were asked to evaluate telemetry, short salvos of SVT were present overnight which is likely an A. tach, I do not see any clear atrial fibrillation on the monitor
Outpatient clinical research monitor can be arranged if cardioembolic stroke is thought to be likely
For now would monitor on telemetry while inpatient
Recent transthoracic echocardiogram was unremarkable 01/07/2024
Agree with DAPT x 21 days and high intensity statin as recommended by neurology
Data Reviewed
-
EKG: Tracing Personally Visualized and interpreted
Radiology: Report Reviewed by me
CT Scan: Report Reviewed by me
MRI: Report Reviewed by me
Medical Tests (Nuc Med, Echo etc): Report Reviewed by me
Labs: Labs Reviewed by me
Old Records: Reviewed
[2024-01-13] MEDS: ATIVAN 0.5 MG PO (21:29)
[2024-01-13] MEDS: XALATAN OPHTHALMIC SOLUTION 1 DROP BOTH EYES (21:47)
--- NOTE | 2024-01-13 22:00 | PTCARENOTE ---
Pt reports taking latanoprost eye drops HS for glaucoma, not currently ordered. House NURSE STAFF Roxana Coker notified, order placed for latanoprost eye drops 1 drop each eye HS.
[2024-01-14] VITALS (8 sets, daily range): BP systolic 121–160; BP diastolic 55–81; PULSE 72; O2SAT 95
[2024-01-14 08:11] LABS: Hemoglobin 12.6 g/dL (12.0-16.0); Mean Corp Hgb Conc. 34.1 g/dL (33.0-37.0); Mean Corpuscular Hgb 30.6 pg (27.0-31.0); Mean Corpuscular Volume 89.8 fL (81.0-99.0); Mean Platelet Volume 10.6 fL (7.4-10.4); Platelet Count 268 10^3/uL (130-400); Red Blood Cell Count 4.12 10^6/uL (4.20-5.40); Red Cell Dist. Width 14.9 % (11.5-14.5); White Blood Cell Count 9.5 10^3/uL (4.8-10.8)
[2024-01-14 08:46] LABS: Blood Urea Nitrogen 22 mg/dl (7-17); Calcium 9.4 mg/dl (8.4-10.2); Carbon Dioxide 26 mmol/L (22-30); Chloride 105 mmol/L (98-107); Estimated Creatinine Clearance 64 ml/min; Glucose 83 mg/dl (70-99); Potassium 4.7 mmol/L (3.5-5.1); Sodium 134 mmol/L (135-145); eGFR > 60.00
[2024-01-14] MEDS: ZOLOFT 100 MG PO (09:14)
[2024-01-14] MEDS: LOW STRENGTH ASPIRIN 81 MG PO (09:14)
[2024-01-14] MEDS: DELTASONE 30 MG PO (09:14)
[2024-01-14] MEDS: LIPITOR 10 MG PO (09:14)
[2024-01-14] MEDS: PLAVIX 75 MG PO (09:14)
--- NOTE | 2024-01-14 11:26 | WOUNDNOTE ---
LLE (near distal lateral knee)
--- NOTE | 2024-01-14 11:28 | WOUNDNOTE ---
[facility] RN note: Patient admitted with RUE weakness. Patient admitted from [facility].
See H&P for complete history.
PMH: HLD, recent periprosthetic fracture of R medial and lateral femoral condyle (R knee immobilizer), NWB RLE x 6 weeks, cutaneous T cell lymphoma, s/p whole body radiation/interferon/chemo 2020, depression, basal cell ca, COPD.
Wound Location and type/assessment: Patient admitted with: LLE skin ulcer patient stated Dr. Vidales her director of enterprise architecture stated it was skin cancer as well as dry scabbed anterior chest skin lesions. Perineum MASD and possible yeast redness.
Appetite: fair.
Pressure redistribution devices in place: [employer] air bed. Patient assists with turning.
Plan: Patient incontinent of soft brown stool. Krysta care given and patient turned with help from KATIE Burgess. Heels off bed with pillow. Air chair cushion given. LLE dressing changed. Patient stated nursing was removing her RLE immobilizer at [facility]
for skin checks. [place] texted erasto Aguila to confirm nursing can open/remove RLE immobilizer daily for skin care/skin checks. Await response. Instructed patient to follow up with her director of enterprise architecture.
Will confirm orders with hospitalist and discussed with KATIE Burgess.
Updated care plan and will follow as needed.
--- NOTE | 2024-01-14 12:20 | W.PN.CARDCBS ---
Addendum entered and electronically signed by Julio Whitmore MD 01/14/24 13:36:
Date of Service: January 14, 2024:
Patient offers no complaints. Sister and daughter at bedside. Still weak in the right arm but says that weakness since is mild. Mobility of right lower extremity limited related to periprosthetic fracture
Allergies: Morphine
Home medications: Acetaminophen, atorvastatin 10 mg a day, Colace, estradiol cream, sertraline 100 mg daily, latanoprost eyedrops,
Current meds atorvastatin 10 mg a day, prednisone 30 mg a day, sertraline 100 mg a day, Plavix 75 mg a day, aspirin 81 mg daily
PMH/PSH/FH/SH: Reviewed
Review of systems: Negative except as above
160/79, pulse 62,
No distress, head neck exam unremarkable, lungs are clear, regular rate and rhythm, JVD okay, no obvious murmurs, abdomen benign, right hemiparesis, not much edema
Hemoglobin 12.6, potassium 4.7, BUN/creatinine 22 and 0.6
Telemetry: Short runs of atrial tachycardia
Assessment:
Basal ganglia stroke
SVT/atrial tachycardia
Emphysema
Interstitial pulmonary fibrosis
Hyperlipidemia
Depression
Recurrent UTIs
Hx BOOP
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
Hx Basal Cell Carcinoma
Periprosthetic right femoral fracture January 05
Plan:
She appears neurologically stable. Agree with DAPT followed by aspirin.
Runs of atrial tachycardia suggest higher risk of atrial fibrillation, would favor at least 2 weeks of ambulatory monitoring at discharge. We will apply a RhythmStar monitor prior to patient's transfer back to rehab.
Patient can follow-up to [facility] cardiology
Original Note:
Today's Communication / Plan
-
Continue to follow on telemetry
If stroke felt to be cardioembolic in nature, can arrange for 14 day rhythm star monitor at time of discharge
Continue DAPT and statin
Impression / Plan
-
Retail Experience Specialist: Kenny - [facility]
Assessment:
RUE weakness
Basal ganglia stroke
SVT/atrial tachycardia
Emphysema
Interstitial pulmonary fibrosis
Hyperlipidemia
Depression
Recurrent UTIs
Hx BOOP
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
Hx Basal Cell Carcinoma
Periprosthetic right femoral fracture January 05
Echo 01/07/2024: EF 55-60%, no significant valvular abnormalities
Plan:
-Presented with RUE weakness. Found to have acute/subacute basal ganglia stroke on MRI.
-Neurology following and plan is for DAPT w/ aspirin and Plavix x 21 days
-LDL 51 on lipitor 10mg daily.
-No definite atrial fibrillation noted on review of telemetry thus far, however patient does appear to have short salvos of atrial tachycardia.
-If cardioembolic stroke felt to be likely, can arrange for OP bus driver/monitor at discharge, likely 14 day Rhythm Star w/ results to Dr. Cox.
-Continue to follow on telemetry while admitted.
-Echo 01/07/2024 as noted above with preserved EF and no significant valvular disease.
-Follow up w/ primary cheese maker at [facility]
Progress Note - Retail Experience Specialist
Subjective
Date of Service: January 14, 2024
Objective
Labs:
01/14/24 07:44
01/14/24 07:44
Labs
Hgb 12.6 g/dL (12.0-16.0) 01/14/24 07:44
Hct 37.0 % (37.0-47.0) 01/14/24 07:44
Plt Count 268 10^3/uL (130-400) 01/14/24 07:44
Sodium 134 mmol/L (135-145) L 01/14/24 07:44
Potassium 4.7 mmol/L (3.5-5.1) 01/14/24 07:44
BUN 22 mg/dl (7-17) H 01/14/24 07:44
Creatinine 0.6 mg/dL (0.6-1.0) 01/14/24 07:44
Glucose 83 mg/dl (70-99) 01/14/24 07:44
Vital Signs and I&O:
Vital Signs
Temp Pulse Resp BP Pulse Ox
97.7 F 62 12 160/79 94
01/14/24 07:15 01/14/24 07:15 01/14/24 07:15 01/14/24 07:15 01/14/24 08:50
Vital Signs
Temp Pulse Resp BP Pulse Ox
97.7 F 62 12 160/79 94
01/14/24 07:15 01/14/24 07:15 01/14/24 07:15 01/14/24 07:15 01/14/24 08:50
Intake & Output
01/12/24 01/13/24 01/14/24 01/15/24
06:59 06:59 06:59 06:59
Intake Total 480 / 480 1160 / 1160
Output Total 850 / 850
Balance 480 / 480 310 / 310
--- NOTE | 2024-01-14 13:23 | W.PN.HOSP.TC ---
Today's Communication/Plan
-
d/c
Assessment / Plan
Assessment / Plan
Gen: NAD, Awake and alert
Eyes: EOMI, PERRLA, no scleral icterus.
Neck: supple.
CV: RRR, +S1/S2, no m/r/g.
Resp: CTAB, no rales, wheezes, or rhonchi.
Abd: +BS, soft, NT, ND
Skin: No rashes.
Neuro: CN 2-12 intact, RUE 4/5
Psych: Normal mood and affect.
MRI brain/MRA head and neck: There are a few adjacent small nonhemorrhagic acute/subacute left basal ganglia infarcts. No focal hemodynamically significant stenosis, aneurysm or occlusion.
Echo 01/07/24: Normal left ventricular size and systolic function. No regional wall motion�abnormalities are seen. LV ejection fraction is 55-60%.�Normal diastolic function.�No significant valvular abnormalities.
Acute/subacute L basal ganglia infarcts:
-presented with RUE weakness with possible RLE weakness (but the RLE weakness is unclear given recent history of fracture about 8 days prior to arrival)
-was not a TNK candidate
-cont ASA, Plavix x 21 days
-cont statin
-neurology saw in consultation
Recent Periprosthetic Fracture of Right Medial and Lateral Femoral Condyle (01/06/24)
- Non operative approach
- in knee immobilizer at this time
- maintain NWB status of the right lower extremity for 6 weeks
- OP follow-up in clinic in 2 weeks- to transition her to a hinged knee brace.
Interstitial Lung Disease/COPD: O2 PRN, not on inhalers as outpt
Hyperlipidemia: Cont statin
Depression: cont sertraline
DNR/SCDs
Medically cleared for discharge, case management aware.
Anticipated Discharge: Today
Subjective/Interval History
-
Date of Service: January 14, 2024
Baseline SOB, denies CP. No new complaints.
Objective Data
-
Labs:
Laboratory Results
01/14/24
07:44
WBC 9.5
Hgb 12.6
Hct 37.0
Plt Count 268
Sodium 134 L
Potassium 4.7
Chloride 105
Carbon Dioxide 26
BUN 22 H
Creatinine 0.6
Glucose 83
Calcium 9.4
Vital Signs:
Vital Signs
Temp Pulse Resp BP Pulse Ox
98.1 F 68 20 145/76 95
01/14/24 11:37 01/14/24 11:37 01/14/24 11:37 01/14/24 11:37 01/14/24 11:37
I&O
01/13/24 01/14/24 01/15/24
06:59 06:59 06:59
Intake Total 480 / 480 1160 / 1160
Output Total 850 / 850
Balance 480 / 480 310 / 310
--- NOTE | 2024-01-14 15:50 | CM ---
CM following re: d/c planning
Chart reviewed
Pt seen by PT/OT and post d/c recommendation is for acute rehab
CM spoke with the patient's daughter & sister to discuss disposition plans
Pt will require an auth depending on acute rehab vs SNF d/c
Patient's daughter Jenifer would like referrals placed to [facility] acute re[facility] or [facility] if patient does not meet acute rehab criteria
[facility] is requesting patient have additional imaging to determine plan of care secondary to patient's NWB status
CM will continue to follow and assist with continued needs as indicated
PLAN; CM following for needs
[2024-01-14] MEDS: ATIVAN 0.5 MG PO (21:42)
[2024-01-14] MEDS: XALATAN OPHTHALMIC SOLUTION 1 DROP BOTH EYES (21:42)
[2024-01-14] MEDS: DESENEX/MITRAZOL/ZEASORB 1 APPLIC TOPICAL (21:42)
[2024-01-14] MEDS: TUMS 2 TABLET PO (22:18)
--- NOTE | 2024-01-14 22:20 | PTCARENOTE ---
Pt reports episode of acid reflux. Ever Coker notified, order placed for PRN Tums q4h.
[2024-01-15] VITALS (8 sets, daily range): BP systolic 116–147; BP diastolic 60–88
[2024-01-15] MEDS: TYLENOL 650 MG PO ×2 (00:26→11:22)
[2024-01-15] MEDS: MELATONIN 5 MG PO (00:27)
--- NOTE | 2024-01-15 00:43 | PTCARENOTE ---
Pt reports increased anxiety and difficulty sleeping despite PRN PO Ativan 0.5mg admin. House DIRECTOR OF STATE Roxana Coker notified, order for 1x stat Melatonin 5mg given to pt.
[2024-01-15] MEDS: LOW STRENGTH ASPIRIN 81 MG PO (09:25)
[2024-01-15] MEDS: LIPITOR 10 MG PO (09:25)
[2024-01-15] MEDS: DELTASONE 30 MG PO (09:25)
[2024-01-15] MEDS: PLAVIX 75 MG PO (09:25)
[2024-01-15] MEDS: ZOLOFT 100 MG PO (09:25)
[2024-01-15] MEDS: DESENEX/MITRAZOL/ZEASORB 1 APPLIC TOPICAL ×2 (09:26→19:37)
--- NOTE | 2024-01-15 10:02 | W.PN.CARDCBS ---
Today's Communication / Plan
-
Apply ambulatory monitor car operator at discharge
Follow-up to [facility] cardiology as outpatient
Aspirin Plavix per neurology
Impression / Plan
-
Assessment:
Basal ganglia stroke
SVT/atrial tachycardia
Emphysema
Interstitial pulmonary fibrosis
Hyperlipidemia
Depression
Recurrent UTIs
Hx BOOP
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
Hx Basal Cell Carcinoma
Periprosthetic right femoral fracture January 05
Echo 01/07/2024: EF 55-60%, no significant valvular abnormalities
Plan:
She still has episodes of atrial tachycardia which are brief but no atrial fibrillation. Overall from a cardiac standpoint she is unchanged.
Will place a rhythm*monitor at the time of discharge with real-time telemetry looking for atrial fibrillation.
She can follow-up to primary award machine operator at [facility] cardiology at discharge
Progress Note - Steam And Power Supervisor
Subjective
Date of Service: January 15, 2024:
Allergies morphine
Outpatient meds reviewed
Current medications: Atorvastatin 10 mg a day, prednisone 30 mg a day, sertraline 100 mg a day, clopidogrel 75 mg daily, aspirin 81 mg a day
PMH/PSH/FH/SH: Reviewed
ROS as above
147/74, pulse 74,
No labs today
Objective
Labs:
01/14/24 07:44
01/14/24 07:44
Labs
Hgb 12.6 g/dL (12.0-16.0) 01/14/24 07:44
Hct 37.0 % (37.0-47.0) 01/14/24 07:44
Plt Count 268 10^3/uL (130-400) 01/14/24 07:44
Sodium 134 mmol/L (135-145) L 01/14/24 07:44
Potassium 4.7 mmol/L (3.5-5.1) 01/14/24 07:44
BUN 22 mg/dl (7-17) H 01/14/24 07:44
Creatinine 0.6 mg/dL (0.6-1.0) 01/14/24 07:44
Glucose 83 mg/dl (70-99) 01/14/24 07:44
Vital Signs and I&O:
Vital Signs
Temp Pulse Resp BP Pulse Ox
36.4 C 74 16 147/74 96
01/15/24 07:30 01/15/24 07:30 01/15/24 07:30 01/15/24 07:30 01/15/24 07:30
Vital Signs
Temp Pulse Resp BP Pulse Ox
36.4 C 74 16 147/74 96
01/15/24 07:30 01/15/24 07:30 01/15/24 07:30 01/15/24 07:30 01/15/24 07:30
Intake & Output
01/13/24 01/14/24 01/15/24 01/16/24
07:59 07:59 07:59 07:59
Intake Total 480 / 480 1160 / 1160 500 / 500
Output Total 850 / 850 550 / 550
Balance 480 / 480 310 / 310 -50 / -50
Physical Exam
Physical Exam
No distress, daughter at bedside
Head neck exam unremarkable
Right hemiparesis, right lower extremity not tested related to immobilizer and periprosthetic fracture
Lungs are clear
Cardiac regular rate and rhythm without obvious murmurs
1+ edema
--- NOTE | 2024-01-15 11:15 | CM ---
Addendum entered by Fallon Suarez 01/15/24 11:48:
IMM provided to patient at 11am, 01/15/24.
Original Note:
licensing manager reviewed patient's chart and met with patient and patient was referred to [facility] acute rehab, and [facility] Acute rehab, waiting on PM&R consult. licensing manager met with patient and patient's daughter, and provided update on patient
progress.
Plan; Patient and daughter would prefer acute rehab, waiting on determination from [facility], then [facility], daughter also agreeable to [facility] acute rehab although it would be a distance for family to travel. Patient will need Auth for acute rehab
placement.
--- NOTE | 2024-01-15 11:39 | W.PN.HOSP.TC ---
Today's Communication/Plan
-
monitor vitals
see plan
PMNR evaluation
cw ASA and plavix
Assessment / Plan
Assessment / Plan
Gen: NAD, Awake and alert
Eyes: EOMI, PERRLA, no scleral icterus.
Neck: supple.
CV: RRR, +S1/S2, no m/r/g.
Resp: CTAB, no rales, wheezes, or rhonchi.
Abd: +BS, soft, NT, ND
Skin: No rashes.
Neuro: CN 2-12 intact, RUE 4/5
Psych: Normal mood and affect.
MRI brain/MRA head and neck: There are a few adjacent small nonhemorrhagic acute/subacute left basal ganglia infarcts. No focal hemodynamically significant stenosis, aneurysm or occlusion.
Echo 01/07/24: Normal left ventricular size and systolic function. No regional wall motion�abnormalities are seen. LV ejection fraction is 55-60%.�Normal diastolic function.�No significant valvular abnormalities.
Acute/subacute L basal ganglia infarcts:
-presented with RUE weakness with possible RLE weakness (but the RLE weakness is unclear given recent history of fracture about 8 days prior to arrival)
-was not a TNK candidate
-cont ASA, Plavix x 21 days; then ASA 81mg daily indefinitely
-cont statin
-neurology saw in consultation
SVT/atrial tachycardia
Per cardiology no A-fib however given high risk of A-fib, cardiology will plan for manager cardiac
Recent Periprosthetic Fracture of Right Medial and Lateral Femoral Condyle (01/06/24)
- Non operative approach
- in knee immobilizer at this time
- maintain NWB status of the right lower extremity for 6 weeks
- OP follow-up in clinic in 2 weeks- to transition her to a hinged knee brace.
Mild hyponatremia
monitor
Anxiety
Ativan prn
Interstitial Lung Disease/COPD: O2 PRN, not on inhalers as outpt
Hyperlipidemia: Cont statin
Depression: cont sertraline
DNR/SCDs
PT/OT rec acute rehab; PMNR consulted
Medically cleared for discharge, case management aware.
Anticipated Discharge: Within 24 hours
Subjective/Interval History
-
Date of Service: January 15, 2024
Denies pain
Objective Data
-
Vital Signs:
Vital Signs
Temp Pulse Resp BP Pulse Ox
98.2 F 73 16 116/68 92
01/15/24 11:30 01/15/24 11:30 01/15/24 11:30 01/15/24 11:30 01/15/24 11:30
I&O
01/14/24 01/15/24 01/16/24
06:59 06:59 06:59
Intake Total 1160 / 1160 500 / 500
Output Total 850 / 850 550 / 550
Balance 310 / 310 -50 / -50
--- NOTE | 2024-01-15 14:44 | CON.MD ---
Addendum entered and electronically signed by Julio Clement MD 01/15/24 22:38:
Attending Statement:
I saw and examined the patient today.� Reviewed care plan with patient, therapy, nursing, and physician assistant maintenance manager.� I agree with the above subjective and physical exam, and plan as documented.
Original Note:
Documented by User: Renata Huang PA-C 01/15/24 17:13
Consultation - Medical
-
Referring Provider:Dr. Donaldo Muñoz
Chief Complaint: CVA
History of Present Illness: 83-year-old left hand dominant female with PMH of ( Cutaneous T cell Lymphoma, GERD, Hypercholesterolemia, Depression and BOOP (bronchiolitis obliterans organizing pneumonia, Emphysema, Pulmonary nodules ,Rib Fractures,
UTI) presented to the ED on 01/12/2024 after waking up early in the morning around 5am with right upper extremity weakness.� She also had some clumsiness in her right hand.� Unclear to what extent she had associated right lower extremity weakness
as she is currently wearing a knee immobilizer and recently had a right femur fracture.� No other focal neurological deficits.� She had not been on any antiplatelet given the recent fracture.� Last known normal was 10 PM Sunday night.� She arrived
to the ED out of the window for TNK and CTA was not pursued given relatively low stroke scale.� Symptoms have improved somewhat since admission. CT scan of head:No acute intracranial abnormality noted.
Brain MRI
There are a few adjacent foci of restricted diffusion in the posterolateral left basal ganglia likely involving the posterior putamen, measuring up to 1.0 cm, in keeping with acute/subacute infarcts. No associated hemorrhage. There is associated
hyperintense FLAIR signal suggesting these are not hyperacute.
MRI brain/MRA head and neck: There are a few adjacent small nonhemorrhagic acute/subacute left basal ganglia infarcts. No focal hemodynamically significant stenosis, aneurysm or occlusion.
Echo 01/07/24: Normal left ventricular size and systolic function. No regional wall motion�abnormalities are seen. LV ejection fraction is 55-60%.�Normal diastolic function.�No significant valvular abnormalities.
Past Medical History: Cutaneous T cell Lymphoma, GERD, Hypercholesterolemia, Depression and BOOP, Emphysema, Pulmonary nodules ,Rib Fratures, UTI
Procedure History: Appendectomy, Cholecystectomy, Gynecological (Hysterectomy), Orthopedic (Bilateral total knee replaced) and Tonsillectomy
Family History: son w/ brain aneurysm.� sister w/ ?afib and no family hx of throacic/abd aneursym or CAD. son with fatal NV)
Social History:
Functional Level Premorbidly: Independent with all activities, rollator, assist with ADL
Functional Level Currently: Mobility with moderate assistance, sit to stand transfer- moderate assist, static stance with RW for about 15 seconds was mike toileting - dependent, lower extremity care- Dependent.
Tobacco: Former smoker (Quit 40 years ago)
Alcohol: Occasional
Drug use: Denies
Lives with: Family in 2nd floor condo with spouse, elevator access
24-hour assistance available:
Number of floors: 2
# steps to enter:
# steps to second floor: FF
Potential First floor set up:yes- [facility] [facility] for rehab following dulce maria-prosthetic fx RLE
Driving:
Occupation: Retired
�
Allergies:
Allergy/AdvReac Type Severity Reaction Status Date / Time
morphine Morphine Allergy hypotension Verified 01/12/24 15:24
Review of Systems:
Constitutional: (x) Normal _
Eye: (x) Normal _
Ear/Nose/Throat: (x) Normal _
Respiratory: (x) Normal _
Cardiovascular: (x) Normal _
Gastrointestinal: (x) Normal _
Genitourinary: (x) Normal _
Musculoskeletal: (x) RUE weakness, Fx of RLE
Integumentary: (x) Normal _
Neurologic: (x) CVA
Psychiatric: (x) Normal _
Endocrine: (x) Normal _
Hematologic/Lymphatic: (x) Normal _
Allergic/Immunologic: (x) Normal _
Medications:
Active Current Visit Medication List
Category Date Time Status
Acetaminophen [Tylenol/Feverall] Med 01/12/24 20:37 Active
650 mg RECTAL Q4HPRN PRN
Acetaminophen [Tylenol] Med 01/12/24 20:37 Active
650 mg PO Q4HPRN PRN
Aspirin Chewable [Low Strength Aspirin] Med 01/14/24 08:00 Active
81 mg PO DAILY
Atorvastatin [Lipitor] Med 01/13/24 08:00 Active
10 mg PO DAILY
Calcium Carbonate Chewable [Tums] Med 01/14/24 22:06 Active
2 tablet PO Q4HPRN PRN
Clopidogrel Bisulfate [Plavix] Med 01/13/24 08:00 Active
75 mg PO DAILY
Docusate Sodium [Colace] Med 01/13/24 21:29 Active
100 mg PO BIDPRN PRN
Flush (0.9% Sodium Chloride) [Flush (Nss)] Med 01/12/24 21:00 Active
See Dose Instructions IV PER PROTOCOL
Latanoprost [Xalatan Ophthalmic Solution] Med 01/13/24 22:00 Active
0 drop BOTH EYES HS
Lorazepam [Ativan] Med 01/12/24 20:37 Active
0.5 mg PO Q4HPRN PRN
Miconazole Nitrate [Desenex/Mitrazol/Zeasorb] Med 01/14/24 20:00 Active
See Dose Instructions TOPICAL BID
Prednisone [Deltasone] Med 01/13/24 08:00 Active
30 mg PO DAILY
Sertraline HCl [Zoloft] Med 01/13/24 08:00 Active
100 mg PO DAILY
Vitals:
Temp Pulse Resp BP Pulse Ox
98.2 F 73 16 116/68 92
01/15/24 11:30 01/15/24 11:30 01/15/24 11:30 01/15/24 11:30 01/15/24 11:30
Height 5 ft 1 in
Actual Weight 74.389 kg
Body Mass Index (BMI) 31.0
Physical Exam:
General Appearance/Observation: Well-developed, well-nourished individual in no apparent distress.
Pain/Comfort Assessment: Denies
Mood/Affect: Appropriate
Integumentary/Operative Site:
�� Pressure Ulcer Evaluation: absent over heels.
��
�� Other Type of Wound: left wound on left thigh - with ABD pad, scab noted left supraclavicular area, small cutaneous horn on right ear. Scarred skin- noted on face, nose, neck from radiation treatment
��
Eyes: Conjunctiva/Lids: normal ��� Pupils: pupils equal round and reactive to light and Accommodation
Ears/Nose/Throat: oral mucosa moist,� throat clear.������������ Lips/Teeth/Gums: normal
Neck: No muscle spasm or tenderness
Cardiovascular: Heart: regular, no murmur
Pulses: dorsalis pedis 1+ bilaterally
Respiratory: Respiratory Effort/Chest Expansion: normal ������ Auscultation: Clear to auscultation bilaterally
Gastrointestinal: abdomen not tender, no distension, rumbling abdominal bowel sounds
Genitourinary: Singleton
Extremities: Edema: None Cyanosis: None Trophic changes: None
Neurology Exam:
Orientation: Alert, Oriented to self, Time, Place
Memory: Intact for immediate medical concerns
Higher cortical function
Repetition: Intact
Comprehension: Intact
Two step command: Intact
Naming: Intact
Cranial Nerves:
�� CNII: Pupillary light reflex: Intact��� Visual Field:
�� CN III, IV, : Extraocular muscles: Intact
�� CN V: Facial Sensation at Forehead: Intact, Maxilla: Intact, Mandible: Intact
�� CN VII: Facial movement: Symmetric
�� CN VIII: Hearing: Normal
�� CN IX/X: Speech & swallow: Normal, Position of Uvula: Midline
�� CN XI: Shoulder shrug: Symmetric
�� CN XII: Tongue protrusion: Midline
Sensory:
�� Light touch: Intact in bilateral upper and lower extremities, deferred RLE in immobilizer
�
Reflexes:
�� Biceps: 2+ bilaterally
�� Brachioradialis: 2+ bilaterally
�� Triceps: 2+ bilaterally
�� Patellar:deferred right, 2+ left
�� Achilles: absent bilaterally
�� Babinski: Down going bilaterally
�� Clonus: deferred right, negative left
�� Jonel: Negative bilaterally
Cerebellar: Dysmetria/Ataxia: None
Musculoskeletal:
Motor: (Manual muscle scale 0-5)
Muscle SA EF WE EE FF FA HF KE DF EHL PF
Right� 4 4 4 4 4 4 - - 1+ 2 1
Left 5 5 5 5 5 5 5 5 5 5 5
right handgrip- 4/5
Tone: Normal in all extremities, deferred RLE in immobilizer
Range of Motion: Passively within normal limits in all extremities, except RLE in immobilizer
Lab Results
Labs
WBC 9.5 10^3/uL (4.8-10.8) 01/14/24 07:44
RBC 4.12 10^6/uL (4.20-5.40) L 01/14/24 07:44
Hgb 12.6 g/dL (12.0-16.0) 01/14/24 07:44
Hct 37.0 % (37.0-47.0) 01/14/24 07:44
MCV 89.8 fL (81.0-99.0) 01/14/24 07:44
MCH 30.6 pg (27.0-31.0) 01/14/24 07:44
MCHC 34.1 g/dL (33.0-37.0) 01/14/24 07:44
RDW 14.9 % (11.5-14.5) H 01/14/24 07:44
Plt Count 268 10^3/uL (130-400) 01/14/24 07:44
MPV 10.6 fL (7.4-10.4) H 01/14/24 07:44
Abs Immat Gran (auto) 0.2 10^3/uL (0-0.05) H 01/13/24 06:03
Absolute Neuts (auto) 6.1 10^3/uL (1.4-6.5) 01/13/24 06:03
Absolute Lymphs (auto) 2.3 10^3/uL (1.2-3.4) 01/13/24 06:03
Absolute Monos (auto) 0.9 10^3/uL (0.1-0.6) H 01/13/24 06:03
Absolute Eos (auto) 0.2 10^3/uL (0-0.7) 01/13/24 06:03
Absolute Basos (auto) 0.1 10^3/uL (0-0.2) 01/13/24 06:03
CBC Comment Cancelled 01/12/24 16:00
Immature Gran % 2.4 % (0-0.5) H 01/13/24 06:03
Neutrophils % 62.6 % (42.2-75.2) 01/13/24 06:03
Lymphocytes % 23.6 % (20.5-51.1) 01/13/24 06:03
Monocytes % 9.2 % (1.7-9.3) 01/13/24 06:03
Eosinophils % 1.7 % (0-6) 01/13/24 06:03
Basophils % 0.5 % (0-2) 01/13/24 06:03
Nucleated RBC % 0 % 01/13/24 06:03
Sodium 134 mmol/L (135-145) L 01/14/24 07:44
Potassium 4.7 mmol/L (3.5-5.1) 01/14/24 07:44
Chloride 105 mmol/L (98-107) 01/14/24 07:44
Carbon Dioxide 26 mmol/L (22-30) 01/14/24 07:44
BUN 22 mg/dl (7-17) H 01/14/24 07:44
Creatinine 0.6 mg/dL (0.6-1.0) 01/14/24 07:44
Estimated Creat Clear 64 ml/min 01/14/24 07:44
eGFR > 60.00 01/14/24 07:44
Glucose 83 mg/dl (70-99) 01/14/24 07:44
Hemoglobin A1c Cancelled 01/12/24 20:37
Calcium 9.4 mg/dl (8.4-10.2) 01/14/24 07:44
Total Bilirubin Cancelled 01/12/24 16:56
AST Cancelled 01/12/24 16:56
ALT Cancelled 01/12/24 16:56
Alkaline Phosphatase Cancelled 01/12/24 16:56
Total Protein Cancelled 01/12/24 16:56
Albumin Cancelled 01/12/24 16:56
Triglycerides 137 mg/dl (10-149) 01/13/24 06:03
Total Cholesterol 136 mg/dl (50-199) 01/13/24 06:03
LDL Cholesterol, Calc 51 mg/dl 01/13/24 06:03
VLDL Cholesterol, Calc 27 mg/dl (0-30) 01/13/24 06:03
HDL Cholesterol 58 mg/dl 01/13/24 06:03
�
Diagnostic Results: as per HPI
Assessment 83-year-old left hand dominant female with PMH of ( Cutaneious T cell Lymphoma, GERD, Hypercholesterolemia, Depression and BOOP, Emphysema, Pulmonary nodules ,Rib Fratures, UTI) presented to the ED on 01/12/2024 after waking up early
yesterday morning around 5am with right upper extremity weakness.�MRI of brain with few adjacent small nonhemorrhagic acute/subacute left basal ganglia infarcts. No focal hemodynamically significant stenosis, aneurysm or occlusion. She was not a
candidate for TNK.
Plan
PM&R PT/OT to increase independence with ADLs, improve balance, coordination, endurance, strength, mobility, community reintegration, decreased burden of care on others and family education.
CVA: Acute/subacute L basal ganglia infarcts:
-presented with RUE weakness with possible RLE weakness (but the RLE weakness is unclear given recent history of fracture about 8 days prior to arrival)
-was not a TNK candidate
-cont ASA, Plavix x 21 days; then ASA 81mg daily indefinitely. Statin, and blood pressure control (SBP less than 180 and diastolic less than 100 to participate with therapy for ischemic stroke). Continue to monitor neurologic status. Hemoglobin A1C
is 5.8. Goal is normoglycemia.
right nondominant hemiparesis: High risk for falls and sliding out of chair/bed. Safety reinforced.
- Avoid using affected arm to help lift or pull patient as this will cause trauma to the shoulder.
Recent Periprosthetic Fracture of Right Medial and Lateral Femoral Condyle (01/06/24):
- Non operative approach
- in knee immobilizer at this time
- maintain NWB� status of the right lower extremity for 6 weeks
- OP follow-up in clinic in 2 weeks- to transition her to a hinged knee brace.
HTN: continue medications, monitor closely
HLD: �atorvastatin 10mg qhs.
COPD: Per doctor, needs to follow up with pulmonary OP
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
SVT/atrial tachycardia: Per cardiology no A-fib however given high risk of A-fib, cardiology will plan for lunchroom monitor� Continue anticoagulation and rate control medications.�Apply ambulatory lunchroom monitor at discharge
Follow-up to [facility] cardiology as outpatient.�����������������������������������������
ECHO: ejection fraction is 55-60%
Bilateral lower extremity edema: Consider TEDS as able. Increased fluid will cause more force requirement to move lower extremities which requires more strength and increases fatigue.
Anemia: Hgb stable - 12.6
Depression/Anxiety: Ativan prn, sertraline, Psychology consult.� Monitor mood, adjust medications as needed.
Skin: monitor for pressure sores/rashes/lesions.
Pain: acetaminophen or oxycodone as needed.
Bowel: Colace and Senna, PRN bisacodyl.
Bladder: Time void, PVRs, PRN straight cath.
Prophylaxis: Pantoprazole
DVT Prophylaxis: Mechanical, not on Heparin SC
Pulmonary: Incentive spirometry
Morbid obesity: Continue to budget counselor patient about diet adjustments to control obesity. Body habitus and increased force to move body and extremities causes further difficulty with functional tasks.
Safety: Continue to reinforce assistance with all transfers.
Code Status:� DNR
Dispo (date/plan/equipment needs): Home with family care.� Social history reviewed.
Functional and Medical Goals: Modified Independent with ADL�s, ambulation, transfers
Summary of recommendations:
- Discharge Destination: Would benefit from Acute inpatient Rehabilitation based on her current functional level of Mobility with moderate assistance, sit to stand transfer- moderate assist, static stance with RW for about 15 seconds was
fair, toileting - dependent, lower extremity care- Dependent.
CVA: Acute/subacute L basal ganglia infarcts:
-presented with RUE weakness with possible RLE weakness (but the RLE weakness is unclear given recent history of fracture about 8 days prior to arrival)
-was not a TNK candidate
-cont ASA, Plavix x 21 days; then ASA 81mg daily indefinitely. Statin, and blood pressure control (SBP less than 180 and diastolic less than 100 to participate with therapy for ischemic stroke). Continue to monitor neurologic status. Hemoglobin A1C
is 5.8. Goal is normoglycemia.
Right nondominant hemiparesis: High risk for falls and sliding out of chair/bed. Safety reinforced.
- Avoid using affected arm to help lift or pull patient as this will cause trauma to the shoulder.
HTN: continue medications, monitor closely
Pain: acetaminophen or Tramadol or oxycodone as needed.
Bowel: Colace and Senna, PRN bisacodyl.
Bladder: Time void, PVRs, PRN straight cath. Remove Singleton as tolerated to prevent infection
Prophylaxis: Pantoprazole
DVT Prophylaxis: Mechanical and Would recommend Heparin SC
Pulmonary: Incentive spirometry
Thank you for allowing me to care for your patient. Please contact me with any questions or concerns.
This note was dictated using a voice recognition system. Please excuse any typographical errors from commercial sales consultant. If you believe there are any discrepancies, please notify our office.

Documented by User: Julio Clement MD 01/15/24 22:36
Consultation - Medical
-
Referring Provider:Dr. Donaldo Muñoz
Chief Complaint: CVA
History of Present Illness: 83-year-old left hand dominant female with PMH (Cutaneous T cell Lymphoma, GERD, Hypercholesterolemia, Depression and BOOP (bronchiolitis obliterans organizing pneumonia, Emphysema, Pulmonary nodules ,Rib Fractures, UTI)
presented to the ED on 01/12/2024 after waking up early in the morning around 5am with right upper extremity weakness.� She also had some clumsiness in her right hand.� Unclear to what extent she had associated right lower extremity weakness as she
is currently wearing a knee immobilizer and recently had a right femur fracture.� No other focal neurological deficits.� She had not been on any antiplatelet given the recent fracture.� Last known normal was 10 PM Sunday night.� She arrived to the
ED out of the window for TNK and CTA was not pursued given relatively low stroke scale.� Symptoms have improved somewhat since admission. CT scan of head:No acute intracranial abnormality noted.
Brain MRI
There are a few adjacent foci of restricted diffusion in the posterolateral left basal ganglia likely involving the posterior putamen, measuring up to 1.0 cm, in keeping with acute/subacute infarcts. No associated hemorrhage. There is associated
hyperintense FLAIR signal suggesting these are not hyperacute.
MRI brain/MRA head and neck: There are a few adjacent small nonhemorrhagic acute/subacute left basal ganglia infarcts. No focal hemodynamically significant stenosis, aneurysm or occlusion.
Echo 01/07/24: Normal left ventricular size and systolic function. No regional wall motion�abnormalities are seen. LV ejection fraction is 55-60%.�Normal diastolic function.�No significant valvular abnormalities.
Past Medical History: Cutaneous T cell Lymphoma, GERD, Hypercholesterolemia, Depression and BOOP, Emphysema, Pulmonary nodules ,Rib Fratures, UTI
Procedure History: Appendectomy, Cholecystectomy, Gynecological (Hysterectomy), Orthopedic (Bilateral total knee replaced) and Tonsillectomy
Family History: son w/ brain aneurysm.� sister w/ ?afib and no family hx of throacic/abd aneursym or CAD. son with fatal NV)
Social History:
Functional Level Premorbidly: Independent with all activities, rollator, assist with ADL
Functional Level Currently: Mobility with moderate assistance, sit to stand transfer- moderate assist, static stance with RW for about 15 seconds was mike toileting - dependent, lower extremity care- Dependent.
Tobacco: Former smoker (Quit 40 years ago)
Alcohol: Occasional
Drug use: Denies
Lives with: Family in 2nd floor condo with spouse, elevator access
24-hour assistance available: Yes
Number of floors: 2
# steps to enter: 0
# steps to second floor: FF, but has elevator access
Potential First floor set up:yes 2nd floor condo with elevator
Driving: No
Occupation: Retired
�
Allergies:
Allergy/AdvReac Type Severity Reaction Status Date / Time
morphine Morphine Allergy hypotension Verified 01/12/24 15:24
Review of Systems:
Constitutional: (x) abNormal _fatigue
Eye: (x) Normal _
Ear/Nose/Throat: (x) Normal _
Respiratory: (x) Normal _
Cardiovascular: (x) Normal _
Gastrointestinal: (x) Normal _
Genitourinary: (x) Normal _
Musculoskeletal: (x) RUE weakness, fracture of RLE with pain
Integumentary: (x) Normal _
Neurologic: (x) CVA with right sided weakness
Psychiatric: (x) Normal _
Endocrine: (x) Normal _
Hematologic/Lymphatic: (x) Normal _
Allergic/Immunologic: (x) Normal _
Medications:
Active Current Visit Medication List
Category Date Time Status
Acetaminophen [Tylenol/Feverall] Med 01/12/24 20:37 Active
650 mg RECTAL Q4HPRN PRN
Acetaminophen [Tylenol] Med 01/12/24 20:37 Active
650 mg PO Q4HPRN PRN
Aspirin Chewable [Low Strength Aspirin] Med 01/14/24 08:00 Active
81 mg PO DAILY
Atorvastatin [Lipitor] Med 01/13/24 08:00 Active
10 mg PO DAILY
Calcium Carbonate Chewable [Tums] Med 01/14/24 22:06 Active
2 tablet PO Q4HPRN PRN
Clopidogrel Bisulfate [Plavix] Med 01/13/24 08:00 Active
75 mg PO DAILY
Docusate Sodium [Colace] Med 01/13/24 21:29 Active
100 mg PO BIDPRN PRN
Flush (0.9% Sodium Chloride) [Flush (Nss)] Med 01/12/24 21:00 Active
See Dose Instructions IV PER PROTOCOL
Latanoprost [Xalatan Ophthalmic Solution] Med 01/13/24 22:00 Active
0 drop BOTH EYES HS
Lorazepam [Ativan] Med 01/12/24 20:37 Active
0.5 mg PO Q4HPRN PRN
Miconazole Nitrate [Desenex/Mitrazol/Zeasorb] Med 01/14/24 20:00 Active
See Dose Instructions TOPICAL BID
Prednisone [Deltasone] Med 01/13/24 08:00 Active
30 mg PO DAILY
Sertraline HCl [Zoloft] Med 01/13/24 08:00 Active
100 mg PO DAILY
Vitals:
Temp Pulse Resp BP Pulse Ox
98.2 F 73 16 116/68 92
01/15/24 11:30 01/15/24 11:30 01/15/24 11:30 01/15/24 11:30 01/15/24 11:30
Height 5 ft 1 in
Actual Weight 74.389 kg
Body Mass Index (BMI) 31.0
Physical Exam:
General Appearance/Observation: Well-developed, well-nourished female in no apparent distress.
Pain/Comfort Assessment: Denies
Mood/Affect: Appropriate
Integumentary/Operative Site: left wound on left thigh - with ABD pad, scab noted left supraclavicular area, small cutaneous horn on right ear. Scarred skin- noted on face, nose, neck from radiation treatment
�� Pressure Ulcer Evaluation: absent over heels.
��
Eyes: Conjunctiva/Lids: normal ��� Pupils: pupils equal round and reactive to light and Accommodation
Ears/Nose/Throat: oral mucosa moist,� throat clear.������������ Lips/Teeth/Gums: normal
Neck: No muscle spasm or tenderness
Cardiovascular: Heart: regular, no murmur
Pulses: dorsalis pedis 1+ bilaterally
Respiratory: Respiratory Effort/Chest Expansion: normal ������ Auscultation: Clear to auscultation bilaterally
Gastrointestinal: abdomen not tender, no distension, rumbling abdominal bowel sounds
Genitourinary: Singleton
Extremities: Edema: Right LE edema Cyanosis: None Trophic changes: None
Neurology Exam:
Orientation: Alert, Oriented to self, Time, Place
Memory: Intact for immediate medical concerns
Higher cortical function
Repetition: Intact
Comprehension: Intact
Two step command: Intact
Naming: Intact
Cranial Nerves:
�� CNII: Pupillary light reflex: Intact��� Visual Field:
�� CN III, IV, : Extraocular muscles: Intact
�� CN V: Facial Sensation at Forehead: Intact, Maxilla: Intact, Mandible: Intact
�� CN VII: Facial movement: Symmetric
�� CN VIII: Hearing: Normal
�� CN IX/X: Speech & swallow: Normal, Position of Uvula: Midline
�� CN XI: Shoulder shrug: Symmetric
�� CN XII: Tongue protrusion: Midline
Sensory:
�� Light touch: Intact in bilateral upper and lower extremities, deferred RLE in immobilizer
�
Reflexes:
�� Biceps: 2+ bilaterally
�� Brachioradialis: 2+ bilaterally
�� Triceps: 2+ bilaterally
�� Patellar:deferred right, 2+ left
�� Achilles: absent bilaterally
�� Babinski: Down going bilaterally
�� Clonus: deferred right, negative left
�� Jonel: Negative bilaterally
Cerebellar: Dysmetria/Ataxia: None
Musculoskeletal: Motor: (Manual muscle scale 0-5)
Muscle SA EF WE EE FF FA HF KE DF EHL PF
Right� 4 4 4 4 4 4 - - 1+ 2 1
Left 5 5 5 5 5 5 5 5 5 5 5
right handgrip- 4/5
Tone: Normal in all extremities, deferred RLE in immobilizer
Range of Motion: Passively within normal limits in all extremities, except RLE in immobilizer
Lab Results
Labs
WBC 9.5 10^3/uL (4.8-10.8) 01/14/24 07:44
RBC 4.12 10^6/uL (4.20-5.40) L 01/14/24 07:44
Hgb 12.6 g/dL (12.0-16.0) 01/14/24 07:44
Hct 37.0 % (37.0-47.0) 01/14/24 07:44
MCV 89.8 fL (81.0-99.0) 01/14/24 07:44
MCH 30.6 pg (27.0-31.0) 01/14/24 07:44
MCHC 34.1 g/dL (33.0-37.0) 01/14/24 07:44
RDW 14.9 % (11.5-14.5) H 01/14/24 07:44
Plt Count 268 10^3/uL (130-400) 01/14/24 07:44
MPV 10.6 fL (7.4-10.4) H 01/14/24 07:44
Abs Immat Gran (auto) 0.2 10^3/uL (0-0.05) H 01/13/24 06:03
Absolute Neuts (auto) 6.1 10^3/uL (1.4-6.5) 01/13/24 06:03
Absolute Lymphs (auto) 2.3 10^3/uL (1.2-3.4) 01/13/24 06:03
Absolute Monos (auto) 0.9 10^3/uL (0.1-0.6) H 01/13/24 06:03
Absolute Eos (auto) 0.2 10^3/uL (0-0.7) 01/13/24 06:03
Absolute Basos (auto) 0.1 10^3/uL (0-0.2) 01/13/24 06:03
CBC Comment Cancelled 01/12/24 16:00
Immature Gran % 2.4 % (0-0.5) H 01/13/24 06:03
Neutrophils % 62.6 % (42.2-75.2) 01/13/24 06:03
Lymphocytes % 23.6 % (20.5-51.1) 01/13/24 06:03
Monocytes % 9.2 % (1.7-9.3) 01/13/24 06:03
Eosinophils % 1.7 % (0-6) 01/13/24 06:03
Basophils % 0.5 % (0-2) 01/13/24 06:03
Nucleated RBC % 0 % 01/13/24 06:03
Sodium 134 mmol/L (135-145) L 01/14/24 07:44
Potassium 4.7 mmol/L (3.5-5.1) 01/14/24 07:44
Chloride 105 mmol/L (98-107) 01/14/24 07:44
Carbon Dioxide 26 mmol/L (22-30) 01/14/24 07:44
BUN 22 mg/dl (7-17) H 01/14/24 07:44
Creatinine 0.6 mg/dL (0.6-1.0) 01/14/24 07:44
Estimated Creat Clear 64 ml/min 01/14/24 07:44
eGFR > 60.00 01/14/24 07:44
Glucose 83 mg/dl (70-99) 01/14/24 07:44
Hemoglobin A1c Cancelled 01/12/24 20:37
Calcium 9.4 mg/dl (8.4-10.2) 01/14/24 07:44
Total Bilirubin Cancelled 01/12/24 16:56
AST Cancelled 01/12/24 16:56
ALT Cancelled 01/12/24 16:56
Alkaline Phosphatase Cancelled 01/12/24 16:56
Total Protein Cancelled 01/12/24 16:56
Albumin Cancelled 01/12/24 16:56
Triglycerides 137 mg/dl (10-149) 01/13/24 06:03
Total Cholesterol 136 mg/dl (50-199) 01/13/24 06:03
LDL Cholesterol, Calc 51 mg/dl 01/13/24 06:03
VLDL Cholesterol, Calc 27 mg/dl (0-30) 01/13/24 06:03
HDL Cholesterol 58 mg/dl 01/13/24 06:03
�
Diagnostic Results: as per HPI
Assessment 83-year-old left hand dominant female with PMH of ( Cutaneious T cell Lymphoma, GERD, Hypercholesterolemia, Depression and BOOP, Emphysema, Pulmonary nodules ,Rib Fratures, UTI) presented to the ED on 01/12/2024 after waking up early
yesterday morning around 5am with right upper extremity weakness.�MRI of brain with few adjacent small nonhemorrhagic acute/subacute left basal ganglia infarcts. No focal hemodynamically significant stenosis, aneurysm or occlusion. She was not a
candidate for TNK.
Plan
PM&R PT/OT to increase independence with ADLs, improve balance, coordination, endurance, strength, mobility, community reintegration, decreased burden of care on others and family education.
CVA: Acute/subacute L basal ganglia infarcts:
-presented with RUE weakness with possible RLE weakness (but the RLE weakness is unclear given recent history of fracture about 8 days prior to arrival)
-was not a TNK candidate
-Aspirin, Plavix x 21 days; then ASA 81mg daily indefinitely. Statin, and blood pressure control (SBP less than 180 and diastolic less than 100 to participate with therapy for ischemic stroke). Continue to monitor neurologic status. Hemoglobin A1C
is 5.8. Goal is normoglycemia.
Right nondominant hemiparesis: High risk for falls and sliding out of chair/bed. Safety reinforced.
- Avoid using affected arm to help lift or pull patient as this will cause trauma to the shoulder.
Recent Periprosthetic Fracture of Right Medial and Lateral Femoral Condyle (01/06/24):
- Non operative approach
- in knee immobilizer at this time
- maintain NWB� status of the right lower extremity for 6 weeks
- OP follow-up in clinic in 2 weeks- to transition her to a hinged knee brace.
HTN: continue medications, monitor closely
HLD: �atorvastatin 10mg qhs.
COPD: Per doctor, needs to follow up with pulmonary OP
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
SVT/atrial tachycardia: Per cardiology no A-fib however given high risk of A-fib, cardiology will plan for lunchroom monitor� Continue anticoagulation and rate control medications.�Apply ambulatory lunchroom monitor at discharge
Follow-up to [facility] cardiology as outpatient.�����������������������������������������
-ECHO: ejection fraction is 55-60%
Depression/Anxiety: Ativan prn, sertraline, Psychology consult.� Monitor mood, adjust medications as needed.
Skin: monitor for pressure sores/rashes/lesions.
Pain: acetaminophen or oxycodone as needed.
Bowel: Colace and Senna, PRN bisacodyl.
Bladder: Time void, PVRs, PRN straight cath.
Prophylaxis: Pantoprazole
DVT Prophylaxis: Mechanical and recommend chemoprophylaxis
Pulmonary: Incentive spirometry
Obesity: Continue to budget counselor patient about diet adjustments to control obesity. Body habitus and increased force to move body and extremities causes further difficulty with functional tasks.
Safety: Continue to reinforce assistance with all transfers.
Code Status:� DNR
Dispo (date/plan/equipment needs): Home with family care.� Social history reviewed.
Functional and Medical Goals: Modified Independent with ADL�s, ambulation, transfers
Summary of recommendations:
- Discharge Destination: Would benefit from Acute inpatient Rehabilitation based on her current functional level of Mobility with moderate assistance, sit to stand transfer- moderate assist, static stance with RW for about 15 seconds was
fair, toileting - dependent, lower extremity care- Dependent.
CVA: Acute/subacute L basal ganglia infarcts:
-presented with RUE weakness with possible RLE weakness (but the RLE weakness is unclear given recent history of fracture about 8 days prior to arrival)
-was not a TNK candidate
-Aspirin, Plavix x 21 days; then ASA 81mg daily indefinitely. Statin, and blood pressure control (SBP less than 180 and diastolic less than 100 to participate with therapy for ischemic stroke). Continue to monitor neurologic status. Hemoglobin A1C
is 5.8. Goal is normoglycemia.
Right nondominant hemiparesis: High risk for falls and sliding out of chair/bed. Safety reinforced.
- Avoid using affected arm to help lift or pull patient as this will cause trauma to the shoulder.
HTN: continue medications, monitor closely
Pain: acetaminophen or Tramadol or oxycodone as needed.
Bowel: Colace and Senna, PRN bisacodyl.
Bladder: Time void, PVRs, PRN straight cath. Remove Singleton as tolerated to prevent infection
Prophylaxis: Pantoprazole
DVT Prophylaxis: Mechanical and recommend chemoprophylaxis
Pulmonary: Incentive spirometry
Thank you for allowing me to care for your patient. Please contact me with any questions or concerns.
This note was dictated using a voice recognition system. Please excuse any typographical errors from commercial sales consultant. If you believe there are any discrepancies, please notify our office.
[2024-01-15] MEDS: XALATAN OPHTHALMIC SOLUTION 1 DROP BOTH EYES (21:12)
[2024-01-15] MEDS: ATIVAN 0.5 MG PO (21:21)
[2024-01-16] MEDS: TUMS 2 TABLET PO (00:11)
[2024-01-16 07:30] VITALS: BP 118/75
[2024-01-16 08:37] LABS: % Basophils 0.3 % (0-2); % Eosinophils 1.9 % (0-6); % Lymphocytes 22.5 % (20.5-51.1); % Monocytes 9.5 % (1.7-9.3); % Neutrophils 62.8 % (42.2-75.2); Absolute Eosinophils 0.2 10^3/uL (0-0.7); Absolute Immature Granulocytes 0.3 10^3/uL (0-0.05); Absolute Lymphocytes 2.3 10^3/uL (1.2-3.4); Absolute Neutrophils 6.4 10^3/uL (1.4-6.5); Hematocrit 34.2 % (37.0-47.0); Hemoglobin 11.5 g/dL (12.0-16.0); Mean Corp Hgb Conc. 33.6 g/dL (33.0-37.0); Mean Corpuscular Hgb 30.6 pg (27.0-31.0); Mean Platelet Volume 10.9 fL (7.4-10.4); Nucleated Red Blood Cells % 0 %; Platelet Count 257 10^3/uL (130-400); Red Blood Cell Count 3.76 10^6/uL (4.20-5.40); Red Cell Dist. Width 15.3 % (11.5-14.5); White Blood Cell Count 10.1 10^3/uL (4.8-10.8)
[2024-01-16] MEDS: DELTASONE 30 MG PO (08:50)
[2024-01-16] MEDS: LIPITOR 10 MG PO (08:50)
[2024-01-16] MEDS: ZOLOFT 100 MG PO (08:50)
[2024-01-16] MEDS: LOW STRENGTH ASPIRIN 81 MG PO (08:50)
[2024-01-16] MEDS: DESENEX/MITRAZOL/ZEASORB 1 APPLIC TOPICAL (08:50)
[2024-01-16] MEDS: PLAVIX 75 MG PO (08:50)
[2024-01-16 09:08] LABS: Blood Urea Nitrogen 30 mg/dl (7-17); Calcium 9.4 mg/dl (8.4-10.2); Carbon Dioxide 27 mmol/L (22-30); Chloride 102 mmol/L (98-107); Estimated Creatinine Clearance 64 ml/min; Glucose 91 mg/dl (70-99); Sodium 134 mmol/L (135-145); eGFR > 60.00
--- NOTE | 2024-01-16 09:59 | W.PN.CARDCBS ---
Addendum entered and electronically signed by Luc De La Rosa MD 01/16/24 16:10:
I saw and examined the patient.
The CAR MECHANIC or PA's note was reviewed and I agree with the note.
Comment: General: Well developed, well nourished in NAD.
Stable cardiology status for transfer to [place]. Monitor has been applied. Discussed with patient and daughter at bedside. Follow-up at [facility]
Original Note:
Today's Communication / Plan
-
No complaints
Will discharge with 14 day Rhythm Star monitor in place
Follow up w/ [facility] arranged
Impression / Plan
-
Slip Cover Seamstress: Previously followed w/ Dr. Cox @ [facility]. Follow up scheduled w/ Dr. Ricardo
Assessment:
RUE weakness
Basal ganglia stroke
SVT/atrial tachycardia
Emphysema
Interstitial pulmonary fibrosis
Hyperlipidemia
Depression
Recurrent UTIs
Hx BOOP
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
Hx Basal Cell Carcinoma
Periprosthetic right femoral fracture January 05
Echo 01/07/2024: EF 55-60%, no significant valvular abnormalities
Plan:
-Presented with RUE weakness. Found to have acute/subacute basal ganglia stroke on MRI.
-Neurology following and plan is for DAPT w/ aspirin and Plavix x 21 days.
-LDL 51 on lipitor 10mg daily.
-Brief episodes of atrial tachycardia noted on telemetry while admitted. No afib noted.
-Plan is to apply a 14 day Rhythm Star monitor prior to discharge w/ results to Dr. Ricardo.
-Echo 01/07/2024 as noted above with preserved EF and no significant valvular disease.
-Follow up arranged w/ [facility] Cardiology
Progress Note - Slip Cover Seamstress
Subjective
Date of Service: January 16, 2024
No complaints.
Objective
Labs:
01/16/24 07:42
01/16/24 07:42
Labs
Hgb 11.5 g/dL (12.0-16.0) L 01/16/24 07:42
Hct 34.2 % (37.0-47.0) L 01/16/24 07:42
Plt Count 257 10^3/uL (130-400) 01/16/24 07:42
Sodium 134 mmol/L (135-145) L 01/16/24 07:42
Potassium 4.0 mmol/L (3.5-5.1) 01/16/24 07:42
BUN 30 mg/dl (7-17) H 01/16/24 07:42
Creatinine 0.6 mg/dL (0.6-1.0) 01/16/24 07:42
Glucose 91 mg/dl (70-99) 01/16/24 07:42
Vital Signs and I&O:
Vital Signs
Temp Pulse Resp BP Pulse Ox
97.4 F 63 18 118/75 97
01/16/24 07:30 01/16/24 07:30 01/16/24 07:30 01/16/24 07:30 01/16/24 07:30
Vital Signs
Temp Pulse Resp BP Pulse Ox
97.4 F 63 18 118/75 97
01/16/24 07:30 01/16/24 07:30 01/16/24 07:30 01/16/24 07:30 01/16/24 07:30
Intake & Output
01/14/24 01/15/24 01/16/24 01/17/24
06:59 06:59 06:59 06:59
Intake Total 1160 / 1160 500 / 500 360 / 360
Output Total 850 / 850 550 / 550 400 / 400
Balance 310 / 310 -50 / -50 -40 / -40
Physical Exam
Physical Exam
GEN: No distress, awake, alert, oriented x3
HEENT: supple, anicteric, mmm
LUNGS: CTA b/l, no wheezes/rales
CV: Reg, S1/S2, 1/6 syst LSB, no murmur
EXT: No clubbing, cyanosis, or edema
SKIN: Warm, dry, no rash
[2024-01-16 10:27] VITALS: BP 151/81; PULSE 95; O2SAT 97
--- NOTE | 2024-01-16 10:28 | CM ---
Patient has been approved for acute rehab at [facility], patient has been approved for 7 days, 01/15- 01/21, [id number], follow up with insurance at [phone]. Bed is available at [facility] today.
[facility] Report [phone]
[2024-01-16 10:30] VITALS: BP 151/81; PULSE 67; O2SAT 96
--- NOTE | 2024-01-16 11:50 | W.PN.HOSP.TC ---
Addendum entered and electronically signed by Donaldo Muñoz MD 01/16/24 13:55:
Seen by neurology again and okay to DC to [facility]. CT head without any new CVA.
Discharge today
Time of discharge 38 minutes
Original Note:
Today's Communication/Plan
-
monitor vitals
see plan
CT head
neurology to see again
hopeful [facility] soon
daughter updated over the phone
Assessment / Plan
Assessment / Plan
Gen: NAD, Awake and alert
Eyes: EOMI, PERRLA, no scleral icterus.
Neck: supple.
CV: RRR, +S1/S2, no m/r/g.
Resp: CTAB, no rales, wheezes, or rhonchi.
Abd: +BS, soft, NT, ND
Skin: No rashes.
Neuro: CN 2-12 intact, RUE 4/5
Psych: Normal mood and affect.
MRI brain/MRA head and neck: There are a few adjacent small nonhemorrhagic acute/subacute left basal ganglia infarcts. No focal hemodynamically significant stenosis, aneurysm or occlusion.
Echo 01/07/24: Normal left ventricular size and systolic function. No regional wall motion�abnormalities are seen. LV ejection fraction is 55-60%.�Normal diastolic function.�No significant valvular abnormalities.
Acute/subacute L basal ganglia infarcts:
-presented with RUE weakness with possible RLE weakness (but the RLE weakness is unclear given recent history of fracture about 8 days prior to arrival)
-was not a TNK candidate
-cont ASA, Plavix x 21 days; then ASA 81mg daily indefinitely
-cont statin
-neurology saw in consultation
Per PT and RN much more weaker on the right side and leaning more to the right today. Neurology notified. Check CT head. likely progression of CVA; will monitor
SVT/atrial tachycardia
Per cardiology no A-fib however given high risk of A-fib, cardiology will plan for private duty lpn prior to dc
Recent Periprosthetic Fracture of Right Medial and Lateral Femoral Condyle (01/06/24)
- Non operative approach
- in knee immobilizer at this time
- maintain NWB status of the right lower extremity for 6 weeks
- OP follow-up in clinic in 2 weeks- to transition her to a hinged knee brace.
Mild hyponatremia
monitor
Anxiety
Ativan prn
Interstitial Lung Disease/COPD: O2 PRN, not on inhalers as outpt
Hyperlipidemia: Cont statin
Depression: cont sertraline
DNR/SCDs
PT/OT rec acute rehab; PMNR consulted
[facility] when able after this recent episode 01/15
I spent a total of 53 minutes with the patient or on the floor. More than 50% of this time involved counseling and coordination of care.
Anticipated Discharge: Within 24 hours
Subjective/Interval History
-
Date of Service: January 16, 2024
Denies pain
Objective Data
-
Labs:
Laboratory Results
01/16/24
07:42
WBC 10.1
Hgb 11.5 L
Hct 34.2 L
Plt Count 257
Sodium 134 L
Potassium 4.0
Chloride 102
Carbon Dioxide 27
BUN 30 H
Creatinine 0.6
Glucose 91
Calcium 9.4
Vital Signs:
Vital Signs
Temp Pulse Resp BP Pulse Ox
97.4 F 63 18 118/75 97
01/16/24 07:30 01/16/24 07:30 01/16/24 07:30 01/16/24 07:30 01/16/24 07:30
I&O
01/15/24 01/16/24 01/17/24
06:59 06:59 06:59
Intake Total 500 / 500 360 / 360
Output Total 550 / 550 400 / 400
Balance -50 / -50 -40 / -40
--- NOTE | 2024-01-16 11:56 | W.PN.NEURO.1 ---
Documented by User: Nancie Perez NP 01/16/24 13:26
Today's Communication / Plan
-
.
Neuro Assessment/Plan
Assessment
-MRI brain 01/13/24: There are a few adjacent small nonhemorrhagic acute/subacute left basal ganglia infarcts as described.
-MRA Head/Neck 01/13/24: No focal hemodynamically significant stenosis, aneurysm or occlusion.
-CT Head 01/06/24: No acute intracranial abnormality noted. Moderate periventricular small vessel ischemic disease. Stable. Stable Acute/subacute lacunar infarct in the left lentiform nucleus. See recent MRI report. Stable old right internal capsule
lacunar infarct.
-TTE 01/07/24: Normal left ventricular size and systolic function. No regional wall motion. abnormalities are seen. LV ejection fraction is 55-60%. Normal diastolic function.�No significant valvular abnormalities. Normal left atrial size.
I. Acute/subacute left basal ganglia ischemic infarcts. Etiology likely hypertension. Expansion of stroke likely producing change in RLE strength.
II. Old right internal capsule lacunar infarct.
III. Infectious/metabolic abnormality possibly exacerbating stroke symptoms.
Plan
-Continue DAPT x 21 days. After 21 days, discontinue Plavix and continue ASA 81mg daily only, indefinitely.
-Do not see a role for further neurological imaging. CT head 01/16/24 reviewed, no evidence of hemorrhage or new area of stroke.
-Urinalysis/reflex ordered to rule out infectious source exacerbating stroke symptoms.
-Goal normotension.
-Echo recently done--01/07/24, no CSE.
-Goal normoglycemia, Hemoglobin A1C is 5.8.
-LDL goal <70. LDL is at goal at 51. Continue home atorvastatin 10mg daily.
-NIHSS and neurological checks per unit guidelines.
-PT/OT/ST evaluations.
-DVT prophylaxis.
-Reviewed s/s of stroke and importance of calling 911 s/p d/c if this recurs.
-Cardiology arranging for 14 day control systems drafting officer as an outpatient.
-No barriers to discharge to rehab from Neurology's perspective.
-Patient needs to follow-up with Neurology as an outpatient in about 4 weeks, may see the CONSUMER SERVICES ADVISOR or one of the physicians.
Subjective/Objective
Subjective Data
Date of Service: January 16, 2024
Patient noted by physical therapy to have decreased right plantar/dorsiflexion, worsened RUE ataxia, and leaning to the right this morning compared to 01/15/[address] head was obtained and is negative for any acute abnormalities.
Physiatry consultation from 01/15/24 afternoon has right foot plantar/dorsiflexion documented as 1/5. Patient currently reports feeling tired and having right knee discomfort. She endorses ongoing weakness and ataxia in her RUE. She denies any
headache, dizziness, vision changes, speech/swallow difficulty, numbness, chest pain, palpitations, and shortness of breath. She reports noticing that her right foot seemed weak started yesterday (01/15/24).
Objective Data
Vital Signs
Temp Pulse Resp BP Pulse Ox
97.4 F 63 18 118/75 97
01/16/24 07:30 01/16/24 07:30 01/16/24 07:30 01/16/24 07:30 01/16/24 07:30
Lab Results
01/16/24 07:42
01/16/24 07:42
Sodium 134 mmol/L (135-145) L 01/16/24 07:42
Potassium 4.0 mmol/L (3.5-5.1) 01/16/24 07:42
BUN 30 mg/dl (7-17) H 01/16/24 07:42
Glucose 91 mg/dl (70-99) 01/16/24 07:42
Calcium 9.4 mg/dl (8.4-10.2) 01/16/24 07:42
LDL Cholesterol, Calc 51 mg/dl 01/13/24 06:03
Patient Allergies
morphine [Morphine] Allergy (Verified 01/12/24 15:24)
hypotension
LDL Level: <70, continue statin
Review of Systems
-
History Source: Patient
EENT: Negative Blurry Vision, Decreased Vision or Swallowing Difficulty
Respiratory: Negative Cough or Trouble Breathing
Cardiac: Negative Chest Pain or Palpitations
Abdomen/GI: Negative Nausea
Genitourinary: Other (using purewick); Negative Dysuria
Musculoskeletal: Negative Back Pain or Neck Pain
Neuro: Weakness and Ataxia; Negative Dizzy, Headache, Numbness or Speech Problem
Physical Exam
-
General: Well Developed, Well Nourished and No Apparent Distress
Eyes: No Ptosis and PERRLA
HEENT: Normocephalic and Atraumatic
Neck: Full Range of Motion
Respiratory: No Dyspnea
GI: Non-distended
Extremities: No Clubbing, No Cyanosis, No Edema and Other (right leg immobilizer in place)
Psych: Unremarkable
Extended Neurological Exam
Mood & Affect: Mood Unremarkable and Affect Unremarkable
Attention Span & Concentration: Awake, Alert and Interactive
Memory: Unremarkable (AAOx3) and Able to Recall
Tremor: Hand Tremor Absent and Head Tremor Absent
Involuntary Movement: None
Speech: Quality Unremarkable, Quantity Unremarkable and Rate of Production Unremarkable
Cranial Nerve II: Left Eye: Pupillary Reactivity Unremarkable, Pupillary Size Unremarkable and Visual Heredia Intact
Cranial Nerve II: Right Eye: Pupillary Reactivity Unremarkable, Pupillary Size Unremarkable and Visual Heredia Intact
Cranial Nerves III, IV, : Extraocular Movement: Extraocular Movement Full in all Directions
Cranial Nerve V: Facial Sensation: Intact to Light Touch
Cranial Nerve VII: Facial Symmetry: Normal Facial Symmetry
Cranial Nerve VIII: Hearing: Unremarkable Hearing to Normal Conversational Volume
Cranial Nerves IX, X: Palate Movement: Palate Elevation Symmetric
Cranial Nerve XI: Shoulder Shrug: Unremarkable
Cranial Nerve XII: Tongue Protusion: Midline
Muscle Strength, Overall: Reduced on Right (RUE 4/5, right finger spread and outcomes specialist 4/5. Right foot dorsi/plantarflexion 1/5, unable to lift leg off of bed.)
Pronator Drift: No Drift in Upper Extremities
Cold Sensation: Unremarkable
Touch Sensation: Double Simultaneous Stimulation Unremarkable
Coordination: Unable to Assess (LILLIANA heel to bragg in RLE); Negative [id number] Testing Unremarkable (RUE ataxia)
Babinski Sign: Absent Bilaterally
Gait & Station: Unable to Assess
Modified Gouverneur Score (MRS)
-
Modified [place] Scale (mRS): Moderately severe disability. Unable to attend to bodily needs/walk.
Score: 4
Data Reviewed
-
CT Head: Report Reviewed and Image Reviewed
MRI Head: Report Reviewed and Image Reviewed
MRA Head: Report Reviewed and Image Reviewed
MRA Neck: Report Reviewed and Image Reviewed
Echocardiogram: Report Reviewed
Labs: Report Reviewed
Lipid Profile: Report Reviewed
HgbA1C: Report Reviewed
Reviewed with: Physician, Patient and Family
NIH Stroke Score
Subsequent NIH Scale
Date of Subsequent NIH Scale: 01/16/24
Time of Subsequent NIH Scale: 13:00
NIH Stroke Score
Level of Consciousness: 0 - Alert
LOC Questions: 0-Answers both correctly
LOC Commands: 0-Performs both correctly
Best Horizontal Gaze: 0-Normal
Visual Heredia: 0=Normal, no visual loss
Facial Palsy: 0=Normal, symmetrical
Motor - Right Arm: 0=No drift 10 seconds
Motor - Left Arm: 0=No drift 10 seconds
Motor - Right Le-None vs. gravity
Motor - Left Le-No drift 5 seconds
Limb Ataxia: 1-Present in one limb
Sensation: 0-Normal
Best Language: 0-No aphasia
Dysarthria: 0-Normal
Extinction and Inattention: 0-No abnormality
Total Score:: 4
Medications
-
Active Medications
Generic Name Dose Route Start Last Admin
Trade Name Freq PRN Reason Stop Dose Admin
Acetaminophen 650 mg 01/12/24 20:37
Acetaminophen 650 Mg Rectal Suppository RECTAL 02/09/24 20:36
Q4HPRN PRN
VALLE, mild pain, or temp >100.4F
Acetaminophen 650 mg 01/12/24 20:37 01/15/24 11:22
Acetaminophen 325 Mg Tablet PO 02/09/24 20:36 650 mg
Q4HPRN PRN Administration
VALLE, mild pain, or temp >100.4F
Aspirin 81 mg 01/14/24 08:00 01/16/24 08:50
Aspirin 81 Mg Chewable Tablet PO 02/11/24 07:59 81 mg
DAILY RADHA Administration
Atorvastatin Calcium 10 mg 01/13/24 08:00 01/16/24 08:50
Atorvastatin (Lipitor) 10 Mg Tablet PO 02/10/24 07:59 10 mg
DAILY RADHA Administration
Calcium Carbonate 2 tablet 01/14/24 22:06 01/16/24 00:11
Calcium Carbonate 500 Mg (Regular-Strength) Chew Tablet PO 02/11/24 22:05 2 tablet
Q4HPRN PRN Administration
indigestion
Clopidogrel Bisulfate 75 mg 01/13/24 08:00 01/16/24 08:50
Clopidogrel 75 Mg Tablet PO 02/10/24 07:59 75 mg
DAILY RADHA Administration
Docusate Sodium 100 mg 01/13/24 21:29
Docusate Sodium 100 Mg Capsule PO 02/10/24 21:28
BIDPRN PRN
constipation
Latanoprost 0 drop 01/13/24 22:00 01/15/24 21:12
Latanoprost 0.005% (Ophthalmic Solution) 2.5 Ml Bottle BOTH EYES 02/10/24 21:59 1 drop
HS RADHA Administration
Lorazepam 0.5 mg 01/12/24 20:37 01/15/24 21:21
Lorazepam 0.5 Mg Tablet PO 02/09/24 20:36 0.5 mg
Q4HPRN PRN Administration
anxiety
Miconazole Nitrate 0 applic 01/14/24 20:00 01/16/24 08:50
Miconazole Powder Bottle TOPICAL 02/11/24 19:59 1 applic
BID RADHA Administration
Prednisone 30 mg 01/13/24 08:00 01/16/24 08:50
Prednisone 10 Mg Tablet PO 02/10/24 07:59 30 mg
DAILY RADHA Administration
Sertraline HCl 100 mg 01/13/24 08:00 01/16/24 08:50
Sertraline 100 Mg Tablet PO 02/10/24 07:59 100 mg
DAILY RADHA Administration
Sodium Chloride 0 flush 01/12/24 21:00
Sodium Chloride 0.9% (Flush) Syringe IV 02/09/24 20:59
PER PROTOCOL RADHA
Home Medications
Medication Instructions Recorded
atorvastatin 10 mg tablet 10 mg PO DAILY High cholesterol 05/31/22
latanoprost 0.005 % eye drops 1 drp BOTH EYES HS Eye Condition 01/04/24
sertraline 100 mg tablet 100 mg PO DAILY depression 01/04/24
acetaminophen 500 mg tablet 1,000 mg PO DAILYPRN PRN mild pain 01/12/24
(Tylenol Extra Strength)
docusate sodium 100 mg capsule 100 mg PO BID PRN constipation 01/12/24
estradiol 0.01% (0.1 mg/gram) 1 g vaginal DAILY Postmenopausal 01/12/24
vaginal cream atrophic vaginitis

Documented by User: Ivett Stratton MD 01/16/24 13:39
Modified G[place]neur Score (MRS)
-
Score: 4
NIH Stroke Score
NIH Stroke Score
Total Score:: 4
--- NOTE | 2024-01-16 14:00 | W.DCSUMMARY ---
Discharge Summary
Discharge Data
Date of Admission: 01/15/24
Date of Discharge: 01/16/24
-
Pending Results: No
Hospital Course
83-year-old female with past medical history of recent periprosthetic fracture of right medial and lateral femoral condyle, interstitial lung disease/COPD came to the hospital with right-sided weakness noted to have acute/subacute left basal ganglia
infarct. Patient was not a TNK candidate upon arrival so was treated with aspirin and Plavix. Patient was instructed to continue aspirin Plavix for total 21 days and then discontinue Plavix and continue aspirin indefinitely. Patient was seen by
neurology throughout hospitalization. Patient was also eval by physical therapy who recommended acute rehab. On this hospitalization patient also had periods of SVT/atrial tachycardia for which she was seen by cardiology. Cardiology recommended
patient to have cardiac monitor technician prior to the discharge. Prior to patient's discharge she was found to be weaker on her right side for which neurology was reconsulted and CT scan was ordered. CT scan did not show any signs of new CVA. It was
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 Patient was evaluated by [facility] and was accepted to [facility]. Once patient symptoms were improving, she was then discharged to [facility] with instructions
to follow-up with all her physicians outpatient.
Discharge Plan
-
Patient Disposition: Acute Rehab Facility
Discharge Diagnosis/Procedures: Acute/subacute L basal ganglia infarcts
Supraventricular tachycardia/atrial tachycardia
Recent periprosthetic fracture of the right medial and lateral femoral condyle
Hyponatremia
Anxiety
Interstitial lung disease
Diet: As tolerated
Activity: With assistance, As tolerated and Do not bear weight R leg
Driving Restrictions: Not until seen by your Dr
Bathing Restrictions: None
Activity Restrictions/Additional Instructions:
Wound Care Instructions
LLE open skin lesion-clean with saline or soap and water, silicone border foam, change daily (add adaptic prn adherent dressing).
Miconazole powder and zinc barrier ointment (i.e. Calazime) bid to perianal affected areas.
NWB RLE. May open/remove RLE knee immobilizer daily while patient in bed for skin check/skin care.
Evaluate for air mattress.
Elevate heels off bed.
Pressure redistributing chair cushion (i.e. Air chair cushion).
Follow up with orthopedic surgeon.
Follow up with your valving machine operator.
maintain NWB� status of the right lower extremity for 6 weeks
- Outpatient follow-up in clinic in 2 weeks- to transition her to a hinged knee brace
Last day of Plavix 02/02/24; continue aspirin indefinitely
Referrals:
Keven Ricardo II, DO [Non-Admitting Privileges] - 02/18/24 12:15 pm (You have a follow up visit w/ [facility], Dr. Ricardo. Please call the office with questions. )
Loni Morrison DO [Active] - in one week
Ivett Stratton MD [Active] - in three to four weeks
Arnold Lopes MD [Family Provider] - in less than 1 week
Prescriptions:
New
miconazole nitrate [Miconazorb AF] 2 % Powder
1 applic topical BID Qty: 0 0RF
lorazepam 0.5 mg Tablet
0.5 mg PO Q4HPRN PRN (Reason: anxiety) Qty: 0 0RF
aspirin [Children's Aspirin] 81 mg Tablet,Chewable
81 mg PO DAILY Qty: 0 0RF
clopidogrel 75 mg Tablet
75 mg PO DAILY Qty: 0 0RF
Continued
atorvastatin 10 mg Tablet
10 mg PO DAILY
latanoprost 0.005 % Drops
1 drp BOTH EYES HS
sertraline 100 mg Tablet
100 mg PO DAILY
estradiol 0.01 % (0.1 mg/gram) Cream
1 g VAGINAL DAILY
acetaminophen [Tylenol Extra Strength] 500 mg tablet
1,000 mg PO DAILYPRN PRN (Reason: mild pain)
docusate sodium 100 mg capsule
100 mg PO BID PRN (Reason: constipation)
Discharge Orders:
Discharge Patient (As Directed); Ordered 01/16/24
Ordered By: Donaldo Muñoz
Discharge Date and Time
Discharge Date/Time: 01/16/24 16:04
--- NOTE | 2024-01-16 15:02 | PTCARENOTE ---
MAHOGANY DUNN, patient ok to go to [facility] specimen sent, instructed to reorder if the patient c/o urinary symptoms.
[2024-01-16 15:14] VITALS: BP 134/81
== END 2024-01-16 16:04 | DRG 65 ==
LOC: 4 WEST ACU 08:09
PROVIDERS: Hospitalist; ADMITTING PHYSICIAN Internal Medicine; ATTENDING PHYSICIAN Internal Medicine; CONSULT PHYSICIAN Internal Medicine Cardiovascular Disease; CONSULT PHYSICIAN Physical Medicine & Rehabilitation; CONSULT PHYSICIAN Psychiatry & Neurology Neurology; EMERGENCY PHYSICIAN Emergency Medicine; FAMILY PHYSICIAN Family Medicine
DX: I63.81 Other cerebral infarction due to occlusion or stenosis of small artery (principal); E87.1 Hypo-osmolality and hyponatremia; I47.19 Other supraventricular tachycardia; J84.9 Interstitial pulmonary disease, unspecified; G81.94 Hemiplegia, unspecified affecting left nondominant side; F41.9 Anxiety disorder, unspecified; I10 Essential (primary) hypertension; E78.00 Pure hypercholesterolemia, unspecified; N95.2 Postmenopausal atrophic vaginitis; Z66 Do not resuscitate; Z85.72 Personal history of non-Hodgkin lymphomas; Z79.82 Long term (current) use of aspirin; Z79.02 Long term (current) use of antithrombotics/antiplatelets
CPT/HCPCS: 70450; 70544; 70548; 70551; 73560; 80048; 80061; 83036; 85025; 85027; 92610; 93005; 96374; 97163; 97167; 97530; 97535; 99285; A9585

== ENCOUNTER 2024-01-19 09:26 | Emergency (ER) | payer OTHER, SELFPAY ==
[2024-01-19 09:28] VITALS: BP 104/71
--- NOTE | 2024-01-19 10:08 | ED.CVA ---
History of Present Illness
General
Chief Complaint: CVA/TIA Symptoms
Source: patient
Time Seen by Provider: 01/19/24 09:37
Onset of Stroke Symptoms
Onset of symptoms known: No
Time pt last seen normal is known: No
Travel History
Have you had any contact with someone who has COVID-19?: No
Do you have any symptoms of coronavirus? Fever > 100 degrees, chills, cough, shortness of breath, sore throat, loss of taste or smell, muscle aches, or headache?: No
History of Present Illness
History of Present Illness:
83-year-old female sent to the emergency room from [facility] due to weakness of the right upper extremity. Patient was hospitalized here at [facility] from 01/11-01/15 for acute CVA. Patient developed right-sided weakness at that time. MRI
confirmed the presence of acute to subacute infarcts. Patient was not a candidate for TNK intervention. She was sent to [facility]. Apparently the folks at [facility] believe her right arm weakness has worsened. A CT of the head was performed
yesterday which showed evolution of the known infarct. Today the patient was sent to the emergency for neurology evaluation and 'an MRI'. Patient denies any headache. Patient feels like her arm has had minimal movement since her stroke on 01/11.
Past History
Past History
ED Past Medical History: Cancer (Cutaneious T cell Lymphoma), GERD, Hypercholesterolemia, Psychiatric (Depression) and Other (BOOP, Emphysema, Pulmonary nodules Rib Fratures, UTI,)
ED Past Surgical History: Appendectomy, Cholecystectomy, Gynecological (Hysterectomy), Orthopedic (Bilateral total knee replaced) and Tonsilectomy
Social History
Tobacco: Former smoker (Quit 40 years ago)
Alcohol: Occasional
Drug: None
Personal:
Living: with family
Employment: Retired
Family History
Family History: Other (son w/ brain aneurysm. sister w/ ?afib and no fam hx of throacic/abd aneursym or cad. son with fatal VA)
Phy Exam
Physical Exam
Physical Exam:
General: Awake, Alert, Oriented X3. No acute distress.
Vitals: unremarkable
Head: Atraumatic
Eyes: Pupils equal, EOMI
Throat: Airway intact, no exudates
Neck: Trachea midline
Lungs: Clear and equal b/l
Heart: Regular rate, no murmurs
Abd: Soft, Nontender, No pulsatile mass
Neuro: Cranial nerves intact, right arm muscle strength 2 out of 5. Welding Machine Operator strength 2-3 out of 5. Right arm difficult to evaluate due to recent femur fracture.
Skin: Warm, dry, no rash
Extremities: pulses equal b/l, no edema
Course
Orders/Labs/Results
Orders:
Orders
01/19/24 11:57
MR Brain Without Contrast Urgent
Comment:
Reason For Exam: progressive right arm weakness
OK for patient to be off Cardiac Monitoring for MRI: Yes
Recent pill cam endoscopy?: No
Pacemaker/Defibrillator?: No
Brain Aneurysm Clips?: No
Have you ever worked with metal? grinding metal? welding?: No
Cochlear(ear) implants?: No
Does Pt have a Temp Sensing Cath?: No
Does the patient have IV access?: Yes
Does the patient have any stents?: No
01/19/24 13:50
Cephalexin Monohydrate [Keflex] 500 mg PO NOW STA
Vital Signs
Initial and Last Documented VS:
Initial Vital Signs
Temp Pulse Resp BP Pulse Ox
97.4 F 79 16 104/71 94
01/19/24 09:28 01/19/24 09:28 01/19/24 09:28 01/19/24 09:28 01/19/24 09:28
Last Documented Vital Signs
Temp Pulse Resp BP Pulse Ox
97.4 F 79 16 112/60 95
01/19/24 09:28 01/19/24 10:30 01/19/24 10:30 01/19/24 14:00 01/19/24 14:30
MDM/Problems Addressed
Differential Diagnosis Includes:
Progression of known CVA, new event, recrudescence of symptoms due to infection
MDM/Problems Addressed:
Patient presents because staff at [facility] felt her right arm is more weak. Subjectively the patient feels like nothing is changed. Her CAT scan yesterday showed evolution of her known CVA. Labs were also sent this morning from [facility] as well as a
urine yesterday from [facility]. Labs were essentially unremarkable. Urine highly suggestive of urinary tract infection with greater than 100 WBCs per high-power field. No antibiotics initiated yet. Patient is afebrile and appears quite stable. My
staff had requested an MRI. This was discussed with neurology and radiology. Given the area affected as is the same area of previous CVA there seems to be no benefit to further imaging. She is not a candidate for TNK given her recent stroke.
They be no indication for interventional therapy. No change in medications would be required. However it seems much more likely that this is waxing and waning of her existing CVA symptoms. Particularly given that she has urinary tract infection
noted on urinalysis. Will initiate antibiotics. No indication for acute care hospitalization at this point.
Chronic conditions affecting care: HTN and Other (Hyperlipidemia)
Acute Exacerbation and/or Progression of Chronic Illness: Neurological disorder (CVA)
*Pulse Oximetry
Patient hypoxic: no
*Critical Care Note
Total Time (30-74mins, 75-104mins- exclusive of procedures): Not Applicable
Data Reviewed
Review of Other/Old Records Reveals: Labs (From this morning that were performed Huy) and Radiology Studies (From yesterday)
ED Attending Note
-
Portions of this chart may have been created with voice recognition software.� Occasional wrong word or��sound alike� substitutions may have occurred due to the inherent limitations of voice recognition software.
Discharge Plan
Departure
Patient Disposition: Acute Rehab Facility
Date of Disposition: 01/19/24
Time of Disposition: 13:53
Condition: Fair
Discharge Problem:
Acute UTI, CVA (cerebral vascular accident)
Instructions: Urinary Tract Infection, Adult ED
Prescriptions:
New
cephalexin 500 mg capsule
500 mg PO BID 7 Days Qty: 14 0RF
No Action
atorvastatin 10 mg Tablet
10 mg PO DAILY
latanoprost 0.005 % Drops
1 drp BOTH EYES HS
sertraline 100 mg Tablet
100 mg PO DAILY
acetaminophen [Tylenol Extra Strength] 500 mg tablet
1,000 mg PO DAILYPRN PRN (Reason: mild pain)
docusate sodium 100 mg capsule
100 mg PO BIDPRN PRN (Reason: constipation)
lorazepam 0.5 mg Tablet
0.5 mg PO Q4HPRN PRN (Reason: anxiety) Qty: 0 0RF
aspirin [Children's Aspirin] 81 mg Tablet,Chewable
81 mg PO DAILY Qty: 0 0RF
clopidogrel 75 mg Tablet
75 mg PO DAILY Qty: 0 0RF
sennosides [senna] 8.6 mg Tablet
17.2 mg PO NOON
tramadol 50 mg Tablet
25 mg PO Q6HPRN PRN (Reason: moderates pain)
ascorbic acid (vitamin C) [Vitamin C] 500 mg Tablet
500 mg PO DAILY
docusate sodium [Colace] 100 mg Capsule
100 mg PO BID
bisacodyl [Dulcolax (bisacodyl)] 5 mg Tablet,Delayed Release (Dr/Ec)
10 mg PO DAILYPRN PRN (Reason: constipation)
miconazole nitrate [Miconazorb AF] 2 % powder
1 applic topical BID
Referrals:
Tk Chang MD [Family Provider] -
Activity Restrictions/Additional Instructions:
Urinalysis from yesterday is c/w a urinary tract infection which can accentuate findings from recent stroke. Pt given a dose of Kelex here and would recommend taking it twice a day for 7 days.
Interventions
Interventions:
*Risk Screen - Suicide Last Done: 01/19/24 09:28
*General Assessment Last Done: 01/19/24 09:28
*Neglect/Abuse Screening Last Done: 01/19/24 09:28
ED- Fall Risk Assessment Last Done: 01/19/24 14:48
*ED COVID-19 Vaccine History Last Done: 01/19/24 09:28
*Nursing Disposition Last Done: 01/19/24 14:51
ED- Pulmonary Assessment Last Done: 01/19/24 10:21
ED- Neurological Assessment Last Done: 01/19/24 10:21
ED- Cardiac Assessment Last Done: 01/19/24 10:21
ED Swallowing Screen Last Done: 01/19/24 10:21
Discharge Date and Time
Discharge Date/Time: 01/19/24 15:02
[2024-01-19 10:30] VITALS: BP 104/56
[2024-01-19 11:00] VITALS: BP 102/49
[2024-01-19 12:00] VITALS: BP 109/61
[2024-01-19 13:00] VITALS: BP 104/56
[2024-01-19 14:00] VITALS: BP 112/60
[2024-01-19] MEDS: KEFLEX 500 MG PO (14:29)
== END 2024-01-19 15:02 ==
LOC: EMR 09:26
PROVIDERS: EMERGENCY PHYSICIAN Emergency Medicine; FAMILY PHYSICIAN Internal Medicine
DX: N39.0 Urinary tract infection, site not specified (principal); I63.9 Cerebral infarction, unspecified; I10 Essential (primary) hypertension; E78.49 Other hyperlipidemia; Z87.891 Personal history of nicotine dependence; Z86.73 Personal history of transient ischemic attack (TIA), and cerebral infarction without residual deficits
CPT/HCPCS: 99283

== ENCOUNTER → 2024-01-25 12:43 | Outpatient (REF) | payer MEDICARE, SELFPAY ==
[2024-01-25 13:18] LABS: % Basophils 0.3 % (0-2); % Eosinophils 8.3 % (0-6); % Immature Granulocytes 0.8 % (0-0.5); % Lymphocytes 21.2 % (20.5-51.1); % Monocytes 9.3 % (1.7-9.3); % Neutrophils 60.1 % (42.2-75.2); Absolute Eosinophils 0.5 10^3/uL (0-0.7); Absolute Immature Granulocytes 0.1 10^3/uL (0-0.05); Absolute Lymphocytes 1.3 10^3/uL (1.2-3.4); Absolute Monocytes 0.6 10^3/uL (0.1-0.6); Absolute Neutrophils 3.8 10^3/uL (1.4-6.5); Hematocrit 27.9 % (37.0-47.0); Hemoglobin 9.2 g/dL (12.0-16.0); Mean Corpuscular Hgb 30.6 pg (27.0-31.0); Mean Corpuscular Volume 92.7 fL (81.0-99.0); Nucleated Red Blood Cells % 0 %; Platelet Count 245 10^3/uL (130-400); Red Blood Cell Count 3.01 10^6/uL (4.20-5.40); Red Cell Dist. Width 15.9 % (11.5-14.5); White Blood Cell Count 6.3 10^3/uL (4.8-10.8)
[2024-01-25 13:28] LABS: ALT (SGPT) 22 U/L (0-35); AST (SGOT) 22 U/L (14-36); Albumin 2.7 g/dl (3.5-5.0); Alkaline Phosphatase 91 U/L (38-126); Blood Urea Nitrogen 20 mg/dl (7-17); Calcium 9.3 mg/dl (8.4-10.2); Carbon Dioxide 26 mmol/L (22-30); Chloride 102 mmol/L (98-107); Glucose 89 mg/dl (70-99); Potassium 4.8 mmol/L (3.5-5.1); Sodium 135 mmol/L (135-145); Total Bilirubin 0.1 mg/dl (0.2-1.3); eGFR > 60.00
== END ==
LOC: OLABP 12:43
PROVIDERS: ATTENDING PHYSICIAN Family Medicine
DX: N30.00 Acute cystitis without hematuria (principal); Z12.31 Encounter for screening mammogram for malignant neoplasm of breast
CPT/HCPCS: 36415; 80053; 85025

== ENCOUNTER → 2024-02-05 11:32 | Outpatient (REF) | payer OTHER, MEDICARE, SELFPAY ==
[2024-02-05 12:06] LABS: % Basophils 0.3 % (0-2); % Eosinophils 3.8 % (0-6); % Immature Granulocytes 1.5 % (0-0.5); % Lymphocytes 12.1 % (20.5-51.1); % Monocytes 11.2 % (1.7-9.3); % Neutrophils 71.1 % (42.2-75.2); Absolute Eosinophils 0.3 10^3/uL (0-0.7); Absolute Immature Granulocytes 0.1 10^3/uL (0-0.05); Absolute Lymphocytes 0.8 10^3/uL (1.2-3.4); Absolute Monocytes 0.7 10^3/uL (0.1-0.6); Absolute Neutrophils 4.7 10^3/uL (1.4-6.5); Hematocrit 30.5 % (37.0-47.0); Hemoglobin 10.1 g/dL (12.0-16.0); Mean Corp Hgb Conc. 33.1 g/dL (33.0-37.0); Mean Corpuscular Hgb 30.3 pg (27.0-31.0); Mean Corpuscular Volume 91.6 fL (81.0-99.0); Mean Platelet Volume 11.3 fL (7.4-10.4); Nucleated Red Blood Cells % 0 %; Platelet Count 254 10^3/uL (130-400); Red Blood Cell Count 3.33 10^6/uL (4.20-5.40); Red Cell Dist. Width 15.4 % (11.5-14.5); White Blood Cell Count 6.6 10^3/uL (4.8-10.8)
[2024-02-05 12:20] LABS: Blood Urea Nitrogen 16 mg/dl (7-17); Calcium 9.1 mg/dl (8.4-10.2); Carbon Dioxide 23 mmol/L (22-30); Chloride 104 mmol/L (98-107); Glucose 89 mg/dl (70-99); Potassium 4.6 mmol/L (3.5-5.1); Sodium 132 mmol/L (135-145); eGFR > 60.00
== END ==
LOC: OLABP 11:32
PROVIDERS: ATTENDING PHYSICIAN Family Medicine
DX: M62.59 Muscle wasting and atrophy, not elsewhere classified, multiple sites (principal); I63.9 Cerebral infarction, unspecified; N39.0 Urinary tract infection, site not specified; E87.5 Hyperkalemia; J84.9 Interstitial pulmonary disease, unspecified; I10 Essential (primary) hypertension; M62.81 Muscle weakness (generalized); E87.1 Hypo-osmolality and hyponatremia; S72.413 Displaced unspecified condyle fracture of lower end of unspecified femur
CPT/HCPCS: 36415; 80048; 85025

== ENCOUNTER → 2024-02-18 12:57 | Outpatient (REF) | payer OTHER, MEDICARE, SELFPAY ==
[2024-02-18 14:17] LABS: % Basophils 0.8 % (0-2); % Eosinophils 5.8 % (0-6); % Immature Granulocytes 1.4 % (0-0.5); % Lymphocytes 22.9 % (20.5-51.1); % Monocytes 9.8 % (1.7-9.3); % Neutrophils 59.3 % (42.2-75.2); Absolute Basophils 0.1 10^3/uL (0-0.2); Absolute Eosinophils 0.5 10^3/uL (0-0.7); Absolute Immature Granulocytes 0.1 10^3/uL (0-0.05); Absolute Monocytes 0.9 10^3/uL (0.1-0.6); Absolute Neutrophils 5.2 10^3/uL (1.4-6.5); Hematocrit 32.8 % (37.0-47.0); Hemoglobin 10.5 g/dL (12.0-16.0); Mean Corpuscular Hgb 30.5 pg (27.0-31.0); Mean Corpuscular Volume 95.3 fL (81.0-99.0); Mean Platelet Volume 12.1 fL (7.4-10.4); Nucleated Red Blood Cells % 0 %; Platelet Count 246 10^3/uL (130-400); Red Blood Cell Count 3.44 10^6/uL (4.20-5.40); Red Cell Dist. Width 15.8 % (11.5-14.5); White Blood Cell Count 8.8 10^3/uL (4.8-10.8)
[2024-02-18 14:26] LABS: Blood Urea Nitrogen 27 mg/dl (7-17); Calcium 9.7 mg/dl (8.4-10.2); Carbon Dioxide 27 mmol/L (22-30); Chloride 106 mmol/L (98-107); Glucose 85 mg/dl (70-99); Potassium 4.5 mmol/L (3.5-5.1); Sodium 136 mmol/L (135-145); eGFR > 60.00
== END ==
LOC: OLABP 12:57
PROVIDERS: ATTENDING PHYSICIAN Family Medicine
DX: M62.59 Muscle wasting and atrophy, not elsewhere classified, multiple sites (principal); I63.9 Cerebral infarction, unspecified; I69.351 Hemiplegia and hemiparesis following cerebral infarction affecting right dominant side; N39.0 Urinary tract infection, site not specified; E87.5 Hyperkalemia; J84.9 Interstitial pulmonary disease, unspecified; M62.81 Muscle weakness (generalized)
CPT/HCPCS: 36415; 80048; 85025

== ENCOUNTER 2024-09-26 13:35 | Outpatient (RCR) | payer OTHER, SELFPAY | END 2024-09-26 23:59 | disposition home or self-care (01) | LOC: ROT 13:35 | PROVIDERS: ATTENDING PHYSICIAN Physician Assistant Surgical; FAMILY PHYSICIAN Internal Medicine | DX: I69.351 Hemiplegia and hemiparesis following cerebral infarction affecting right dominant side (principal); I63.9 Cerebral infarction, unspecified; R26.89 Other abnormalities of gait and mobility; Z73.6 Limitation of activities due to disability | CPT/HCPCS: 97110; 97116; 97163; 97167; 97530; 97535 ==

== ENCOUNTER → 2024-10-14 15:59 | Outpatient (REF) | payer OTHER, MEDICARE, SELFPAY | LOC: RAD 15:59 | PROVIDERS: ATTENDING PHYSICIAN Student in an Organized Health Care Education/Training Program | DX: R22.1 Localized swelling, mass and lump, neck (principal) | CPT/HCPCS: 76536 ==

== ENCOUNTER 2024-10-27 11:09 | Outpatient (RCR) | payer OTHER, SELFPAY | END 2024-10-27 23:59 | disposition home or self-care (01) | LOC: ROT 11:09 | PROVIDERS: ATTENDING PHYSICIAN Physician Assistant Surgical; FAMILY PHYSICIAN Internal Medicine | DX: I69.351 Hemiplegia and hemiparesis following cerebral infarction affecting right dominant side (principal); I63.9 Cerebral infarction, unspecified; I69.398 Other sequelae of cerebral infarction; R26.89 Other abnormalities of gait and mobility; Z73.6 Limitation of activities due to disability | CPT/HCPCS: 97110; 97112; 97116; 97530; 97535 ==

== ENCOUNTER 2024-11-26 11:50 | Outpatient (RCR) | payer OTHER, SELFPAY | END 2024-11-26 23:59 | disposition home or self-care (01) | LOC: ROT 11:50 | PROVIDERS: ATTENDING PHYSICIAN Physician Assistant Surgical; FAMILY PHYSICIAN Internal Medicine | DX: I69.351 Hemiplegia and hemiparesis following cerebral infarction affecting right dominant side (principal); I63.9 Cerebral infarction, unspecified; R26.89 Other abnormalities of gait and mobility; Z73.6 Limitation of activities due to disability | CPT/HCPCS: 97110; 97112; 97116; 97530; 97535 ==

== ENCOUNTER 2024-12-10 11:50 | Outpatient (RCR) | payer OTHER, SELFPAY | END 2024-12-10 23:59 | disposition home or self-care (01) | LOC: ROT 11:50 | PROVIDERS: ATTENDING PHYSICIAN Physician Assistant Surgical; FAMILY PHYSICIAN Internal Medicine | DX: I69.351 Hemiplegia and hemiparesis following cerebral infarction affecting right dominant side (principal); I63.9 Cerebral infarction, unspecified; R26.89 Other abnormalities of gait and mobility; Z73.6 Limitation of activities due to disability | CPT/HCPCS: 97110; 97112; 97116; 97530 ==

== ENCOUNTER → 2025-04-10 14:01 | Outpatient (REF) | payer OTHER, SELFPAY | LOC: HWRAD 14:01 | PROVIDERS: ATTENDING PHYSICIAN Student in an Organized Health Care Education/Training Program | DX: R07.81 Pleurodynia (principal) | CPT/HCPCS: 71101 ==

== ENCOUNTER → 2025-04-21 14:09 | Outpatient (REF) | payer OTHER, SELFPAY | LOC: RAD 14:09 | PROVIDERS: ATTENDING PHYSICIAN Student in an Organized Health Care Education/Training Program | DX: R20.9 Unspecified disturbances of skin sensation (principal) | CPT/HCPCS: 93922; 93925; 93971 ==

== ENCOUNTER → 2025-06-01 12:21 | Outpatient (REF) | payer OTHER, SELFPAY | LOC: HWRAD 12:21 | PROVIDERS: ATTENDING PHYSICIAN Student in an Organized Health Care Education/Training Program | DX: R06.02 Shortness of breath (principal) | CPT/HCPCS: 71046 ==